=== PATIENT | female | born 1955 | race Caucasian/White ===

== ENCOUNTER 2017-02-24 11:20 | Inpatient (IN) ==
--- NOTE | 2017-02-23 21:15 | Discharge Summary ---
<Faith Smith - Last Filed: 02/23/17 21:13> Date of Encounter: 02/23/17 - Discharge Diagnosis (1) Arthritis of left hip Priority: Primary Status: Acute (2) Anxiety Status: Chronic (3) PAD (peripheral artery disease) Priority: Secondary Status: Chronic (4) CAD (coronary artery disease) Priority: Secondary Status: Chronic Qualifiers: Coronary Disease-Associated Artery/Lesion type: unspecified vessel or lesion type [place] vs. transplanted heart: unspecified whether [place] or transplanted heart Associated angina: angina presence unspecified Qualified Code(s): I25.10 - Atherosclerotic heart disease of [place] coronary artery without angina pectoris (5) HTN (hypertension) Priority: Secondary Status: Chronic Qualifiers: Hypertension type: essential hypertension Qualified Code(s): I10 - Essential (primary) hypertension (6) Bipolar disorder Priority: Secondary Status: Chronic Qualifiers: Active/Remission status: remission status unspecified Qualified Code(s): F31.9 - Bipolar disorder, unspecified (7) History of DVT (deep vein thrombosis) Priority: Secondary Status: Chronic (8) Chronic pain Priority: Secondary Status: Chronic Comments: Takes [place] 7.5/325mg - Holding this. - Discharge Medications Home Medications: Diclofenac Sodium [Voltaren] 1 appl TP QID #100 gm 04/19/16 [Rx] Enoxaparin [Lovenox] 30 mg SQ Q12HR #20 syr 02/23/17 [Rx] OxyCODONE Immed Rel [Roxicodone 5 MG] 5 - 10 mg PO Q6HR PRN #40 tablet 02/23/17 [Rx] Albuterol Sulfate [Albuterol Inhaler] 2 puff IH Q4HR PRN 02/24/17 [History] Aspirin [Lo-Dose Aspirin EC] 81 mg PO DAILY 02/24/17 [History] Buspirone HCl [Buspar] 10 mg PO BID 02/24/17 [History] Cilostazol [Pletal] 100 mg PO BID 02/24/17 [History] Clopidogrel [Plavix] 75 mg PO DAILY 02/24/17 [History] Gabapentin [Neurontin] 800 mg PO QID 02/24/17 [History] Glimepiride [Amaryl] 1 mg PO HS 02/24/17 [History] HYDROcodone/Acet 7.5/325 mg [[place] 7.5-325 mg] 1 tab PO BID PRN 02/24/17 [ History] Hydrochlorothiazide 25 mg PO DAILY 02/24/17 [History] Hydroxyzine HCl 25 mg PO Q8H PRN 02/24/17 [History] Lisinopril [Zestril] 20 mg PO HS 02/24/17 [History] Metformin HCl [Glucophage] 1,000 mg PO BID 02/24/17 [History] Metoprolol [Lopressor] 100 mg PO BID 02/24/17 [History] Montelukast [Singulair] 10 mg PO HS 02/24/17 [History] Nitroglycerin [Nitrostat] 0.4 mg SL Q5M PRN 02/24/17 [History] Pregabalin [Lyrica] 75 mg PO BID 02/24/17 [History] Ranitidine HCl [Zantac] 300 mg PO HS 02/24/17 [History] SUMAtriptan [Imitrex] 50 mg PO ONCE PRN 02/24/17 [History] Sertraline [Zoloft] 100 mg PO DAILY 02/24/17 [History] Tizanidine HCl 6 mg PO TID 02/24/17 [History] Allergies/Adverse Reactions: Allergies Amoxicillin [From Augmentin] Adverse Reaction (Verified 02/24/17 12:45) Diarrhea clavulanic acid [From Augmentin] Adverse Reaction (Verified 02/24/17 12:45) Diarrhea Primary care physician: Kyara Ziegler CNP - Patient Status Disposition: Transfer Inpatient Rehab Fac Condition: Good - Discharge Instructions Follow Up With: Kyara Ziegler CNP [Primary Care Provider] - - Hospital Course Hospital course: Ms. Mathis is a 61 year old female - Time Spent with Patient Total time spent providing and/or coordinating discharge services: <Paulino Spicer - Last Filed: 02/26/17 06:47> Date of Encounter: 02/26/17 Time of Encounter: 06:46 - Discharge Diagnosis (1) Arthritis of left hip Priority: Primary Status: Acute (2) Anxiety Priority: Secondary Status: Chronic (3) PAD (peripheral artery disease) Priority: Secondary Status: Chronic (4) CAD (coronary artery disease) Priority: Secondary Status: Chronic Qualifiers: Coronary Disease-Associated Artery/Lesion type: unspecified vessel or lesion type [place] vs. transplanted heart: unspecified whether [place] or transplanted heart Associated angina: angina presence unspecified Qualified Code(s): I25.10 - Atherosclerotic heart disease of [place] coronary artery without angina pectoris (5) HTN (hypertension) Priority: Secondary Status: Chronic Qualifiers: Hypertension type: essential hypertension Qualified Code(s): I10 - Essential (primary) hypertension (6) Bipolar disorder Priority: Secondary Status: Chronic Qualifiers: Active/Remission status: remission status unspecified Qualified Code(s): F31.9 - Bipolar disorder, unspecified (7) History of DVT (deep vein thrombosis) Priority: Secondary Status: Chronic (8) Chronic pain Priority: Secondary Status: Chronic Qualifiers: Chronic pain type: other chronic pain Qualified Code(s): G89.29 - Other chronic pain (9) Acute blood loss anemia Priority: Primary Status: Acute Primary care physician: Kyara Ziegler CNP - Patient Status Functional capacity at discharge: uses cane/walker Overall status at discharge: patient is progressing back to baseline - Hospital Course Hospital course: Ms. Mathis is a 61 year old female The patient had an uneventful postoperative course. They received antibiotics and physical therapy and were discharged in stable condition. There will follow -up in the office in 2 weeks. Patient with a hemoglobin of 6.9 2 units prior to discharge aspirin DVT prophylaxis - Time Spent with Patient Total time spent providing and/or coordinating discharge services:
[2017-02-24] MEDS ORDERED: Lidocaine -MPF 1% 2 ML VIAL ID ONE (11:58)
[2017-02-24] MEDS ORDERED: Albuterol 2.5 MG/3 ML NEBULIZER IH ONE (11:58)
[2017-02-24] MEDS ORDERED: CeFAZolin Pre 2,000 MG/100 ML 2,000 MG/100 ML BAG IVPB ONE (11:58)
[2017-02-24] MEDS ORDERED: Ringers Solution, Lactated 1,000 ML IVC SCH ×2 (12:00→15:59)
[2017-02-24] MEDS ORDERED: Famotidine 20 MG/2 ML VIAL IVP ONE (12:04)
--- NOTE | 2017-02-24 12:04 | History & Physical Report ---
Date of Encounter: 02/24/17 Time of Encounter: 12:03 24 Hour HP Update - Instructions Instructions: If the History and Physical is less than 30 days old and was completed prior to A.M. admission and or procedure and has NOT been updated on calendar day of procedure please complete this update prior to performing procedure. - Update Patient reports changes in Medical Condition: No Changes in examination, assessment, or condition: No Changes in Medication: No Preop tests/diagnostics Reviewed: Yes Surgery Remains Indicated: Yes Consent for Planned Operative Procedure(s) Verified: Yes - Pre-Operative Checklist Preoperative Checklist Indicated: No Prophylactic Antibiotic Ordered: Yes Is VTE Prophylaxis Indicated?: Yes
[2017-02-24] MEDS ORDERED: Gabapentin 300 MG CAPSULE PO ONE (12:05)
--- NOTE | 2017-02-24 12:14 | Anesthesia Evaluation PreOp ---
Date of Encounter: 02/24/17 Time of Encounter: 12:10 - Past History Planned Operation: Left Total Hip Arthroplasty Cardiac History: HTN Pulmonary History: Denies Any Significant HX, COPD JOURNALISM INTERN History: Other (Migraines) Other Medical History: Diabetes Type II, GERD, Other (Bipolar/Schizophrenia) Anesthesia History: No Prior Anesthetic Complications Alcohol Use: none Drug use: none Medications and Allergies Diclofenac Sodium [Voltaren] 1 appl TP QID #100 gm 04/19/16 [Rx] Meloxicam [Mobic] 7.5 mg PO DAILY #15 tablet 04/19/16 [Rx] PredniSONE 40 mg PO NOW 5 Days 04/19/16 [Rx] Enoxaparin [Lovenox] 30 mg SQ Q12HR #20 syr 02/23/17 [Rx] OxyCODONE Immed Rel [Roxicodone 5 MG] 5 - 10 mg PO Q6HR PRN #40 tablet 02/23/17 [Rx] Allergies Amoxicillin [From Augmentin] Adverse Reaction (Verified 04/19/16 10:39) Diarrhea clavulanic acid [From Augmentin] Adverse Reaction (Verified 04/19/16 10:39) Diarrhea - Meds/Allergy Pre-op Review Medications Reviewed: Yes Allergies Reviewed: Yes Beta Blockers on Current Med List: Yes (Took Metoprolol today 0800) Anesthesia Results - Labs Laboratory Tests 02/13/17 02/13/17 13:40 13:40 Hgb 11.4 L Hct 34.2 L Plt Count 485 H Sodium 134 L Potassium 4.3 BUN 25 H Creatinine 0.99 - Imaging EKG: report reviewed (SR) Anesthesia Exam O2 Sat Height 1.6 m Weight 69.4 kg Height: 5'3 Weight: 153 lbs NPO (# of Hours): MN Pain Scale: 0 - HEENT Pupil (Motor): Pupils equal, EOMI Mallampati: III Denture Type: Upper: Complete Oral Opening: Greater than 3 - JOURNALISM INTERN LOC: Oriented JOURNALISM INTERN Motor: Normal RUE, Normal LUE, Normal RLE, Normal LLE, Normal Face JOURNALISM INTERN Sensory: Normal: RUE, LUE, RLE, LLE, Face - Cardiac Rhythm: Regular Murmur: None JVD: No Carotid Bruit: No - Pulmonary Breath Sounds: bilateral Clear Respiratory Effort: Symmetrical Anesthesia Assess/Plan ASA Score: 3 (HTN COPD DM) Modified [place] Scale for Level of Consciousness: Cooperative, oriented, and tranquil Anesthetic Plan: General Monitoring Plan: Standard Monitors Recovery Plan: PACU (Discussed GA, agrees to proceed)
[2017-02-24] MEDS ORDERED: *HR* FentaNYL (PF) 100 MCG/2 ML VIAL ONE (12:17)
[2017-02-24] MEDS ORDERED: *HR* Midazolam HCl 2 MG/2 ML VIAL ONE (12:17)
[2017-02-24] MEDS ORDERED: *HR* Propofol 200 MG/20 ML VIAL IVP ONE (12:17)
[2017-02-24] MEDS ORDERED: Ondansetron 4 MG/2 ML VIAL IVP ONE (12:32)
[2017-02-24] MEDS ORDERED: *HR* Succinylcholine 200 MG/10 ML VIAL IVP ONE (12:52)
[2017-02-24] MEDS ORDERED: Lidocaine -MPF 2% 2 ML VIAL ONE (12:52)
[2017-02-24] MEDS ORDERED: Ondansetron 4 MG/2 ML VIAL ONE (12:52)
[2017-02-24] MEDS ORDERED: Dexamethasone 4 MG/ML VIAL ONE (12:52)
[2017-02-24] MEDS ORDERED: Lidocaine -MPF 4% 5 ML AMPUL ONE (12:52)
[2017-02-24] MEDS ORDERED: *HR* HYDROmorphone 2 MG/ML SYRINGE ONE (14:17)
--- NOTE | 2017-02-24 14:34 | Orthopedic Operative Note ---
Date of procedure: 02/24/17 Pre-op diagnosis: Left hip arthritis Post-op diagnosis: same Procedure: Procedure: Left Total Hip Replacment Estimated blood loss: 200 cc Hardware: Biomet DM Cup: 48 G7 fin cup Femoral size 10 echo full profile lateralized stem Head: +3 head with Allie Procedural Notes: Grade 4 arthritic changes femoral head acetabular socket. Operative procedure: The patient was brought to the operating room and placed on the operating room table. After general anesthesia was administered the patient was placed in the lateral decubitus position with the operative leg up. All pressure points were padded appropriately and the head was stabilized in the neutral position. The operative extremity was prepped and draped in the sterile surgical fashion patient received IV antibiotic prior to skin incision. A standard posterior approach is made to the operative hip, the incision was made through the skin and subcutaneous tissue hemostasis was obtained with Bovie cautery. Using careful sharp dissection the fascia was identified and incised exposing the external rotators. The external rotators were released off the greater trochanter and tagged with #2 FiberWire suture. The capsule was T'd open and the hip was brought into internal rotation. Patient noted to have grade 4 arthritic changes femoral head. The femoral neck cut was made at the appropriate level. An anterior capsulotomy was performed for the anterior retractor. Soft tissues removed from the acetabulum. Patient noted to have grade 4 arthritic changes acetabulum. Acetabulum was first reamed medially, and then reamed in 15 degrees of anteversion and 45 degrees off the horizontal. It was reamed up to the appropriate size 48 The appropriate-sized 48 acetabular cup was impacted in place in 15 degrees of anteversion and 45 degrees off the horizontal. This had good fit and fixation. The hip was brought back in to internal rotation and prepared with the boxcar weigher followed by the canal finder followed by broaching process in 20 degrees anteversion. It was broached up to the appropriate size 10 The femoral implant was impacted in place in 20 degrees of anteversion. Trial reduction found the hip to be stable with a +3 head and Allie. The trials were removed and the real implants were impacted in place. The hip was reduced, patient had apparent equal leg lengths. The hip had excellent stability with forward flexion to 90 degrees adduction of 30 degrees and internal rotation of 60 degrees. The hip had no shuck. The hips after 2 minutes with a Betadine saline solution. It was irrigated out with 2 L of pulse irrigation. The external rotators were reattached to drill holes in the greater trochanter. Fascia was closed with a running #2 PDS suture. The deep tissue was irrigated and closed deep with #1 PDS suture superficially with 0 PDS suture and skin was closed with skin lorri. The patient was placed in a sterile dressing and abduction pillow. The patient was extubated and transferred to the recovery room in stable condition. Anesthesia: GETA Surgeon: Paulino Spicer Condition: stable Disposition: PACU
[2017-02-24] MEDS ORDERED: Ketorolac 30 MG/ML VIAL ONE (14:40)
[2017-02-24] MEDS: *HR* HYDROmorphone (PF) 1 MG/ML SYRINGE IVP PRN ×6 (15:03→23:47)
[2017-02-24 15:25] LABS: Hematocrit 28.4 % (35.3-44.9); Hemoglobin 9.5 g/dL (11.5-15.4)
--- NOTE | 2017-02-24 15:25 | Anesthesia Evaluation Post Op ---
Date of Encounter: 02/24/17 Time of Encounter: 15:26 - Vital Signs Vital Signs: vss - Lungs Lungs: Clear Ascult./Percussion - Airway Airway: Non-obstructed - Cardiovascular Baseline Rhythm - Mental Status Mental Status: Asleep with brisk response to light stimulation - Pain Pain Scale used: [place] (Faces) (tolerable, no apparent distress) - Nausea Vomiting Nausea Vomiting: Not Present - Hydration Hydration: Ice chips - Discharge PostOp Status: Transfer Patient to floor
[2017-02-24] MEDS ORDERED: *HR* Meperidine 25 MG/ML SYRINGE ONE (15:30)
[2017-02-24] MEDS ORDERED: Temazepam 15 MG CAPSULE PO PRN (15:59)
[2017-02-24] MEDS ORDERED: MOM Conc 10 ML UD.LIQ PO PRN (15:59)
[2017-02-24] MEDS ORDERED: Ondansetron 4 MG/2 ML VIAL IVP PRN (15:59)
[2017-02-24] MEDS ORDERED: Sennosides 8.6 MG TABLET PO PRN (15:59)
[2017-02-24] MEDS ORDERED: *HR* OxyCODONE Immed Rel 5 MG TABLET PO PRN (15:59)
[2017-02-24] MEDS ORDERED: Acetaminophen 325 MG TABLET PO PRN (15:59)
[2017-02-24] MEDS ORDERED: Naloxone 0.4 MG/ML INJ IVP PRN (15:59)
[2017-02-24] MEDS: *HR* Enoxaparin 30 MG/0.3 ML SYRINGE SQ SCH (17:42)
[2017-02-24] MEDS: Ascorbic Acid 500 MG TABLET PO SCH (17:42)
[2017-02-24] MEDS ORDERED: *HR* Enoxaparin 30 MG/0.3 ML SYRINGE SQ SCH (18:00)
[2017-02-24] MEDS: ceFAZolin 2,000 MG in D5% in Water 100 ML IVPB SCH (20:48)
[2017-02-25] MEDS: *HR* OxyCODONE Immed Rel 5 MG TABLET PO PRN ×4 (01:03→17:53)
[2017-02-25] MEDS: ceFAZolin 2,000 MG in D5% in Water 100 ML IVPB SCH (04:25)
[2017-02-25] MEDS: *HR* HYDROmorphone (PF) 1 MG/ML SYRINGE IVP PRN ×3 (04:28→22:57)
[2017-02-25] MEDS: *HR* Enoxaparin 30 MG/0.3 ML SYRINGE SQ SCH ×2 (06:05→17:53)
[2017-02-25] MEDS ORDERED: SUMAtriptan succinate 50 MG TABLET PO PRN (06:09)
--- NOTE | 2017-02-25 06:19 | Orthopedics Progress Note ---
Date of Encounter: 02/25/17 Time of Encounter: 06:19 - Assessment and Plan (1) Arthritis of left hip Current Visit: Yes Status: Acute (2) Anxiety Current Visit: Yes Status: Chronic (3) PAD (peripheral artery disease) Current Visit: Yes Status: Chronic (4) CAD (coronary artery disease) Current Visit: Yes Status: Chronic Qualifiers: Coronary Disease-Associated Artery/Lesion type: unspecified vessel or lesion type [place] vs. transplanted heart: unspecified whether [place] or transplanted heart Associated angina: angina presence unspecified Qualified Code(s): I25.10 - Atherosclerotic heart disease of [place] coronary artery without angina pectoris (5) HTN (hypertension) Current Visit: Yes Status: Chronic Qualifiers: Hypertension type: essential hypertension Qualified Code(s): I10 - Essential (primary) hypertension (6) Bipolar disorder Current Visit: Yes Status: Chronic Qualifiers: Active/Remission status: remission status unspecified Qualified Code(s): F31.9 - Bipolar disorder, unspecified (7) History of DVT (deep vein thrombosis) Current Visit: Yes Status: Chronic (8) Chronic pain Current Visit: Yes Status: Chronic Qualifiers: Chronic pain type: other chronic pain Qualified Code(s): G89.29 - Other chronic pain Subjective Interval history: Patient was seen this morning doing well without complaints. Afebrile vital signs stable. Operative extremity: Neurovascularly intact Dressing bloody drainage dressing change Calves nontender Assessment and plan: Continue with postoperative care Hemoglobin 9.5 Objective Vital signs: Vital Signs Temp Pulse Resp BP Pulse Ox 02/25/17 04:36 99.1 F 94 17 115/69 94 02/24/17 23:44 98.3 F 93 19 127/72 99 02/24/17 20:04 97.8 F 81 17 146/72 96 02/24/17 19:00 97.6 F 76 16 113/70 95 02/24/17 17:55 97.9 F 82 17 120/71 97 02/24/17 17:00 97.8 F 83 16 109/58 96 02/24/17 15:50 97.6 F 84 15 116/66 95 02/24/17 15:34 97.7 F 88 14 116/64 95 02/24/17 15:24 97.7 F 87 15 113/64 96 02/24/17 15:14 86 18 124/77 95 02/24/17 15:04 92 14 156/72 97 02/24/17 14:54 97.1 F L 88 12 98/61 100 02/24/17 13:25 77 16 139/78 99 02/24/17 12:13 97.8 F 78 18 135/73 98 Intake and Output 02/24/17 02/24/17 02/25/17 15:59 23:59 07:59 Intake Total 100 / 100 Balance 100 / 100 Intake: IV Fluids 100 / 100 Ancef 2,000 MG In 100 / 100 Dextrose 5% 100 ML @ 200 mls/hr IVPB Q8H JOSE LUIS Rx#: [id number] Other: # Voids 1 Weight 69.4 kg Blood Glucose* 135 281 - Labs CBC & BMP: 02/24/17 15:08 Labs: Abnormal lab results Hgb 9.5 g/dL (11.5-15.4) L 02/24/17 15:08 Hct 28.4 % (35.3-44.9) L 02/24/17 15:08 POC Glucose 281 (58-89) H 02/24/17 20:11 - VTE Documentation of Mechanical Device: Venous foot pump, device Consult Discharge Plan - Plan Referrals: Kyara Ziegler, [employer] [Primary Care Provider] -
[2017-02-25 06:22] LABS: Hemoglobin 7.6 g/dL (11.5-15.4)
[2017-02-25 06:30] LABS: BUN/Creatinine Ratio 22 (6-26); Blood Urea Nitrogen 24 mg/dL (7-20); Calcium 8.6 mg/dL (8.6-10.8); Carbon Dioxide 22 mEq/L (19-29); Chloride 100 mEq/L (98-109); Glucose 209 mg/dL (70-99); Osmolality,Calculated 282 (280-300); Potassium 4.9 mEq/L (3.5-4.5); Sodium 131 mEq/L (136-145); eGFR For African Americans > 60 (> 60); eGFR For Non-African Americans 51 (> 60)
[2017-02-25] MEDS: hydroCHLOROthiazide 25 MG TABLET PO SCH (09:36)
[2017-02-25] MEDS: tiZANidine 4 MG TABLET PO SCH ×3 (09:36→20:24)
[2017-02-25] MEDS: Multivit/Ca/Min/Fe/FA 1 TAB TABLET PO SCH (09:36)
[2017-02-25] MEDS: Metoprolol 100 MG TABLET PO SCH ×2 (09:36→20:23)
[2017-02-25] MEDS: Gabapentin 400 MG CAPSULE PO SCH ×4 (09:37→20:23)
[2017-02-25] MEDS: Aspirin Enteric Coated 81 MG Tablet PO SCH (09:37)
[2017-02-25] MEDS: *HR* Metformin 500 MG TABLET PO SCH ×2 (09:37→17:52)
[2017-02-25] MEDS: Ascorbic Acid 500 MG TABLET PO SCH ×2 (09:37→17:53)
[2017-02-25] MEDS ORDERED: Dextrose Gel 15 GM PO PRN ×2 (12:19)
[2017-02-25] MEDS ORDERED: *HR* Dextrose 50 % in Water (Syg) 50 ML SYRINGE IVP PRN (12:19)
[2017-02-25] MEDS ORDERED: D5% in Water 1,000 ML IVC PRN (12:19)
[2017-02-25] MEDS: Insulin LISPRO 300 UNITS/3 ML VIAL SQ SCH ×3 (14:05→20:22)
[2017-02-25] MEDS: Famotidine 20 MG TABLET PO SCH (20:23)
[2017-02-25] MEDS: Lisinopril 20 MG TABLET PO SCH (20:23)
[2017-02-25] MEDS: Pregabalin 75 MG CAPSULE PO SCH (20:24)
[2017-02-25] MEDS: *HR* Glimepiride 2 MG TABLET PO SCH (20:24)
[2017-02-26 04:53] LABS: Hematocrit 20.7 % (35.3-44.9); Hemoglobin 6.9 g/dL (11.5-15.4)
[2017-02-26 05:19] LABS: BUN/Creatinine Ratio 20 (6-26); Blood Urea Nitrogen 20 mg/dL (7-20); Calcium 8.5 mg/dL (8.6-10.8); Carbon Dioxide 22 mEq/L (19-29); Chloride 99 mEq/L (98-109); Glucose 196 mg/dL (70-99); Osmolality,Calculated 278 (280-300); Potassium 4.1 mEq/L (3.5-4.5); Sodium 130 mEq/L (136-145); eGFR For African Americans > 60 (> 60); eGFR For Non-African Americans 55 (> 60)
[2017-02-26] MEDS: *HR* Enoxaparin 30 MG/0.3 ML SYRINGE SQ SCH ×2 (05:36→18:06)
[2017-02-26] MEDS: *HR* OxyCODONE Immed Rel 5 MG TABLET PO PRN ×3 (05:44→18:06)
--- NOTE | 2017-02-26 06:46 | Orthopedics Progress Note ---
Date of Encounter: 02/26/17 Time of Encounter: 06:45 - Assessment and Plan (1) Arthritis of left hip Current Visit: Yes Status: Acute (2) Anxiety Current Visit: Yes Status: Chronic (3) PAD (peripheral artery disease) Current Visit: Yes Status: Chronic (4) CAD (coronary artery disease) Current Visit: Yes Status: Chronic Qualifiers: Coronary Disease-Associated Artery/Lesion type: unspecified vessel or lesion type [place] vs. transplanted heart: unspecified whether [place] or transplanted heart Associated angina: angina presence unspecified Qualified Code(s): I25.10 - Atherosclerotic heart disease of [place] coronary artery without angina pectoris (5) HTN (hypertension) Current Visit: Yes Status: Chronic Qualifiers: Hypertension type: essential hypertension Qualified Code(s): I10 - Essential (primary) hypertension (6) Bipolar disorder Current Visit: Yes Status: Chronic Qualifiers: Active/Remission status: remission status unspecified Qualified Code(s): F31.9 - Bipolar disorder, unspecified (7) History of DVT (deep vein thrombosis) Current Visit: Yes Status: Chronic (8) Chronic pain Current Visit: Yes Status: Chronic Qualifiers: Chronic pain type: other chronic pain Qualified Code(s): G89.29 - Other chronic pain (9) Acute blood loss anemia Current Visit: Yes Status: Acute Subjective Interval history: Patient was seen this morning doing well without complaints. Afebrile vital signs stable. Operative extremity: Neurovascularly intact Dressing bloody drainage dressing change Calves nontender Assessment and plan: Continue with postoperative care Hemoglobin6.9 2 units check H&H then discharged Objective Vital signs: Vital Signs Temp Pulse Resp BP Pulse Ox 02/26/17 04:00 98.0 F 88 17 121/61 99 02/26/17 00:00 98.8 F 81 16 93/46 96 02/25/17 20:10 99.2 F 99 18 105/61 96 02/25/17 15:05 99.6 F 90 18 146/67 94 02/25/17 11:09 100.1 F H 93 18 122/65 95 Intake and Output 02/25/17 02/25/17 02/26/17 15:59 23:59 07:59 Intake Total 120 / 120 240 / 240 200 / 200 Output Total 1150 / 1150 275 / 275 Balance -1030 / -1030 240 / 240 -75 / -75 Intake: Oral 120 / 120 240 / 240 200 / 200 Output: Urine 1150 / 1150 275 / 275 Other: Meal Breakfast Dinner Percent of Meal Consumed 100% 80% # Voids 1 Blood Glucose* 365 224 - Labs CBC & BMP: 02/26/17 04:28 04 04:28 Labs: Abnormal lab results Hgb 6.9 g/dL (11.5-15.4) L 02/26/17 04:28 Hct 20.7 % (35.3-44.9) L 02/26/17 04:28 Sodium 130 mEq/L (136-145) L 02/26/17 04:28 Est GFR (Non-Af Amer) 55 (> 60) L 02/26/17 04:28 Glucose 196 mg/dL (70-99) H 02/26/17 04:28 POC Glucose 183 (58-89) H 02/25/17 16:07 Calculated Osmolality 278 (280-300) L 02/26/17 04:28 Calcium 8.5 mg/dL (8.6-10.8) L 02/26/17 04:28 - VTE Documentation of Mechanical Device: Venous foot pump, device Consult Discharge Plan - Plan Referrals: Kyara Ziegler, [facility] [Primary Care Provider] -
[2017-02-26] MEDS ORDERED: Furosemide 20 MG/2 ML VIAL IVP PRN (06:47)
[2017-02-26] MEDS ORDERED: 0.9 % Sodium Chloride 250 ML IVC SCH (07:00)
[2017-02-26] MEDS: Insulin LISPRO 300 UNITS/3 ML VIAL SQ SCH ×4 (08:56→20:50)
[2017-02-26] MEDS: tiZANidine 4 MG TABLET PO SCH ×3 (08:58→20:53)
[2017-02-26] MEDS: Gabapentin 400 MG CAPSULE PO SCH ×4 (08:58→20:52)
[2017-02-26] MEDS: Multivit/Ca/Min/Fe/FA 1 TAB TABLET PO SCH (08:58)
[2017-02-26] MEDS: Pregabalin 75 MG CAPSULE PO SCH ×2 (08:59→20:53)
[2017-02-26] MEDS: Metoprolol 100 MG TABLET PO SCH ×2 (08:59→20:53)
[2017-02-26] MEDS: hydroCHLOROthiazide 25 MG TABLET PO SCH (08:59)
[2017-02-26] MEDS: Ascorbic Acid 500 MG TABLET PO SCH ×2 (08:59→16:06)
[2017-02-26] MEDS: *HR* Metformin 500 MG TABLET PO SCH ×2 (08:59→16:05)
[2017-02-26] MEDS: Aspirin Enteric Coated 81 MG Tablet PO SCH (08:59)
[2017-02-26] MEDS: Nicotine 14 MG PATCH.TD24 TD SCH (18:06)
[2017-02-26] MEDS: Famotidine 20 MG TABLET PO SCH (20:52)
[2017-02-26] MEDS: Lisinopril 20 MG TABLET PO SCH (20:52)
[2017-02-26] MEDS: *HR* Glimepiride 2 MG TABLET PO SCH (20:52)
[2017-02-26 21:39] LABS: Hematocrit 24.9 % (35.3-44.9)
[2017-02-26 21:41] LABS: Hemoglobin 8.7 g/dL (11.5-15.4)
[2017-02-27] MEDS: *HR* OxyCODONE Immed Rel 5 MG TABLET PO PRN ×3 (00:05→11:30)
[2017-02-27] MEDS: *HR* Enoxaparin 30 MG/0.3 ML SYRINGE SQ SCH (06:15)
--- NOTE | 2017-02-27 08:17 | Orthopedics Progress Note ---
Date of Encounter: 02/27/17 Time of Encounter: 08:16 - Assessment and Plan (1) Arthritis of left hip Current Visit: Yes Status: Acute (2) Anxiety Current Visit: Yes Status: Chronic (3) PAD (peripheral artery disease) Current Visit: Yes Status: Chronic (4) CAD (coronary artery disease) Current Visit: Yes Status: Chronic Qualifiers: Coronary Disease-Associated Artery/Lesion type: unspecified vessel or lesion type [place] vs. transplanted heart: unspecified whether [place] or transplanted heart Associated angina: angina presence unspecified Qualified Code(s): I25.10 - Atherosclerotic heart disease of [place] coronary artery without angina pectoris (5) HTN (hypertension) Current Visit: Yes Status: Chronic Qualifiers: Hypertension type: essential hypertension Qualified Code(s): I10 - Essential (primary) hypertension (6) Bipolar disorder Current Visit: Yes Status: Chronic Qualifiers: Active/Remission status: remission status unspecified Qualified Code(s): F31.9 - Bipolar disorder, unspecified (7) History of DVT (deep vein thrombosis) Current Visit: Yes Status: Chronic (8) Chronic pain Current Visit: Yes Status: Chronic Qualifiers: Chronic pain type: other chronic pain Qualified Code(s): G89.29 - Other chronic pain (9) Acute blood loss anemia Current Visit: Yes Status: Acute Subjective Interval history: Patient was seen this morning doing well without complaints. Afebrile vital signs stable. Operative extremity: Neurovascularly intact Dressing bloody drainage dressing change Calves nontender Assessment and plan: Continue with postoperative care Discharge today Objective Vital signs: Vital Signs Temp Pulse Resp BP Pulse Ox 02/27/17 06:48 98.0 F 81 16 128/74 97 02/27/17 04:00 98.3 F 69 17 139/72 99 02/27/17 00:00 99.2 F 87 16 94/47 97 02/26/17 19:15 99 F 97 16 111/58 93 02/26/17 16:21 99.8 F H 95 17 113/57 99 02/26/17 16:15 99.8 F H 95 17 113/57 99 02/26/17 15:47 100.2 F H 92 18 111/50 96 02/26/17 13:10 97.6 F 88 18 91/46 94 02/26/17 12:45 98 F 92 16 99/52 97 02/26/17 10:29 98.3 F 86 18 100/51 95 Intake and Output 02/26/17 02/27/17 02/27/17 23:59 07:59 15:59 Intake Total 601 / 601 200 / 200 Output Total 300 / 300 250 / 250 Balance 301 / 301 -50 / -50 Intake: IV Fluids 101 / 101 0.9 % Sodium Chloride 250 1 / 1 ML @ 25 mls/hr IVC .Q10H JOSE LUIS Rx#:[id number] Oral 200 / 200 200 / 200 Blood Product 300 / 300 Rbcs Leuko Poor As-1 300 / 300 Unit [id number] Output: Urine 300 / 300 250 / 250 Other: # Voids 4 1 Blood Glucose* 150 173 - Labs CBC & BMP: 02/26/17 21:31 02/26/17 04:28 Labs: Abnormal lab results Hgb 8.7 g/dL (11.5-15.4) L D 02/26/17 21:31 Hct 24.9 % (35.3-44.9) L 02/26/17 21:31 Sodium 130 mEq/L (136-145) L 02/26/17 04:28 Est GFR (Non-Af Amer) 55 (> 60) L 02/26/17 04:28 Glucose 196 mg/dL (70-99) H 02/26/17 04:28 POC Glucose 144 (58-89) H 02/26/17 16:38 Calculated Osmolality 278 (280-300) L 02/26/17 04:28 Calcium 8.5 mg/dL (8.6-10.8) L 02/26/17 04:28 - VTE Documentation of Mechanical Device: Venous foot pump, device Consult Discharge Plan - Plan Referrals: Paulino Spicer MD [Partnered Physician] - 03/26/17 4:15 pm Faith Smith PAC [Physician Bail Attacher] - 03/06/17 10:15 am Kyara Ziegler CNP [Primary Care Provider] -
[2017-02-27] MEDS: Insulin LISPRO 300 UNITS/3 ML VIAL SQ SCH ×2 (09:09→12:09)
[2017-02-27] MEDS: Aspirin Enteric Coated 81 MG Tablet PO SCH (09:11)
[2017-02-27] MEDS: Ascorbic Acid 500 MG TABLET PO SCH (09:11)
[2017-02-27] MEDS: tiZANidine 4 MG TABLET PO SCH (09:11)
[2017-02-27] MEDS: hydroCHLOROthiazide 25 MG TABLET PO SCH (09:11)
[2017-02-27] MEDS: Gabapentin 400 MG CAPSULE PO SCH ×2 (09:11→12:08)
[2017-02-27] MEDS: Multivit/Ca/Min/Fe/FA 1 TAB TABLET PO SCH (09:12)
[2017-02-27] MEDS: Pregabalin 75 MG CAPSULE PO SCH (09:12)
[2017-02-27] MEDS: Metoprolol 100 MG TABLET PO SCH (09:13)
[2017-02-27] MEDS: Nicotine 14 MG PATCH.TD24 TD SCH (09:13)
[2017-02-27] MEDS: *HR* Metformin 500 MG TABLET PO SCH (09:13)
[2017-02-27 11:22] VITALS: BP 145/75
== END 2017-02-27 13:32 | DRG 301 ==
LOC: SAMDAY 11:20 → 3NENU 16:27
PROVIDERS: ADMIT Orthopaedic Surgery; ATTEND Orthopaedic Surgery

== ENCOUNTER 2018-12-10 16:41 | Inpatient (IN) ==
[2018-12-10] MEDS ORDERED: Acetaminophen 325 MG TABLET PO PRN (18:57)
[2018-12-10] MEDS ORDERED: Isovue-370 500 ML BOTTLE IVP ONE (19:48)
[2018-12-10] MEDS ORDERED: Naloxone 0.4 MG/ML INJ IVP PRN (21:15)
[2018-12-10] MEDS ORDERED: *HR* Promethazine 25 MG/ML VIAL IM ONE (21:42)
[2018-12-10] MEDS ORDERED: Ketorolac 15 MG/ML VIAL IM ONE (21:43)
--- NOTE | 2018-12-10 22:37 | Internal Med History&Physical ---
Date of Encounter: 12/10/18 Time of Encounter: 19:45 Internal Medicine - H&P: HPI Chief complaint: CVA Admitted From: Hospital to Hospital Transfer Plans for Post Hospital Care: Home History of present illness: Ms. Mathis is a 63 year old female Patient presented to [facility] emergency room with left-sided weakness. She states that she went to bed last night at around 9 to 11:30 PM, woke up at around 5 AM try to get out of bed to go to the bathroom but fell over. She had left-sided weakness and was not able to walk very well. She says her body did not want to cooperate. She also states that she felt funny around her mouth and nose, had dizziness and could not turn her head very well. She checked her blood sugar at home and it was 237/111. She then went to her vehicle, cleared it from the snow that had accumulated overnight, and was able to drive herself to the emergency room. She says that she has no family or friends and did not call an ambulance because she wanted to have her car available to her so that she could make it back home again. She has a history of stroke in the past about 5 or 6 years ago. She does not remember which side the stroke affected, but did have recovery from it. In the [facility] emergency room, CBC was within normal limits, BMP showed a creatinine of 1.8 and a GFR of 46.35. INR was 0.93, and urine tox screen was positive for cannabinoids. A chest CT was negative for acute pulmonary abnormalities and a CT head was normal and did not show acute bleed. She was given a dose of aspirin and [facility] requested transfer to [place] for further management. She was still exhibiting symptoms at that time, NIH score was 2, and she was continuing to show left-sided weakness and numbness around her mouth. I cannot tell from the documentation sent from [facility] if a stroke alert had been called. There was no discussion with neurology prior to her transfer. Upon my evaluation, patient states that she has had some recovery. She still has some weakness on the left side and tingling feeling around her mouth. She failed her bedside swallow test. She denies chest pain abdominal pain but has had some nausea and vomiting. She denies diarrhea and constipation and vision changes. She still has a headache as well. I performed a quick physical exam and ordered a CT angiogram of the head and neck. I then called our on-call neurologist Dr. Hughes and discussed the case with him. Because the patient was within a 24-hour window of her last known well I wanted to determine if the patient was an appropriate admission for this hospital. Dr. Hughes stated that he would have preferred this patient would not be admitted here, and patient should have been at least discussed with [facility] prior to her transfer to [facility]. He agreed with obtaining angiograms, as well as calling neurology at [facility] for their recommendations. I spoke with Dr. Pérez of neurology after obtaining the results of the CT angiogram which had indicated a left vertebral artery occlusion. She stated that there would be no intervention for her that they could offer, and she recommended patient be started on aspirin and felt that she would be appropriately managed here at [facility]. She suggested that if patient's symptoms worsened or if she had basilar artery involvement that she should be transferred at that time. I spoke with our neurologist Dr. Hughes once again, and he agreed to see the patient in consultation. MRI results also came back later which indicated an acute right lacunar infarction within the cerebral hemisphere. Past Med Surg Social Fam HX - Past Medical History Medical history: diabetes, hypertension Psychiatric history: no psych history - Past Surgical History Additional surgical history: appendix. c section. eye surgery. left fem -BK pop bypass @ [facility]. angiogram @ [facility] - Social History Smoking Status: Current every day smoker Smokeless Tobacco Status: No Alcohol use: none Drug use: none Internal Medicine - H&P: Meds Diclofenac Sodium [Voltaren] 1 appl TP QID #100 gm 04/19/16 [Rx] Enoxaparin [Lovenox] 30 mg SQ Q12HR #20 syr 02/23/17 [Rx] OxyCODONE Immed Rel [Roxicodone 5 MG] 5 - 10 mg PO Q6HR PRN #40 tablet 02/23/17 [Rx] Albuterol Sulfate [Albuterol Inhaler] 2 puff IH Q4HR PRN 02/24/17 [History] Aspirin [Lo-Dose Aspirin EC] 81 mg PO DAILY 02/24/17 [History] Buspirone HCl [Buspar] 10 mg PO BID 02/24/17 [History] Cilostazol [Pletal] 100 mg PO BID 02/24/17 [History] Clopidogrel [Plavix] 75 mg PO DAILY 02/24/17 [History] Gabapentin [Neurontin] 600 mg PO TID 02/24/17 [History] Glimepiride [Amaryl] 1 mg PO HS 02/24/17 [History] HYDROcodone/Acet 7.5/325 mg [Ethel 7.5-325 mg] 1 tab PO BID PRN 02/24/17 [History] Lisinopril [Zestril] 20 mg PO HS 02/24/17 [History] Metformin HCl [Glucophage] 1,000 mg PO BID 02/24/17 [History] Metoprolol [Lopressor] 100 mg PO BID 02/24/17 [History] Montelukast [Singulair] 10 mg PO HS 02/24/17 [History] Nitroglycerin [Nitrostat] 0.4 mg SL Q5M PRN 02/24/17 [History] Pregabalin [Lyrica] 75 mg PO BID 02/24/17 [History] Ranitidine HCl [Zantac] 300 mg PO HS 02/24/17 [History] SUMAtriptan succinate [Imitrex] 50 mg PO ONCE PRN 02/24/17 [History] Sertraline [Zoloft] 100 mg PO DAILY 02/24/17 [History] Tizanidine HCl 4 mg PO TID 02/24/17 [History] hydrOXYzine HCl [Hydroxyzine HCl] 25 mg PO Q8H PRN 02/24/17 [History] hydroCHLOROthiazide [Hydrochlorothiazide] 25 mg PO DAILY 02/24/17 [History] Dextran 70/Hypromellose/Pf [Artificial Tears Drops] 1 drop BOTH EYES BID 0 12/10/18 [History] Fluticasone Propionate [Flovent Diskus] 12/10/18 [History] rOPINIRole [Requip] 1 mg PO HS 12/10/18 [History] Allergy/AdvReac Type Severity Reaction Status Date / Time Amoxicillin [From Augmentin] AdvReac Diarrhea Verified 02/24/17 12:45 clavulanic acid AdvReac Diarrhea Verified 02/24/17 12:45 [From Augmentin] latex AdvReac See Verified 12/10/18 19:28 Comments All Systems PM: A 10-system review of systems was performed and is negative for pertinent findings except as documented above in the HPI. - Constitutional Vitals: Temp Pulse Resp BP Pulse Ox 97.6 F 92 14 192/105 98 12/10/18 18:33 12/10/18 18:33 12/10/18 18:33 12/10/18 18:33 12/10/18 18:33 General appearance: Present: cooperative, A&O X 3, pleasant, no acute distress, answers questions appropriately Exam: - - Head Head exam: Present: normal inspection - Eye Eye exam: Present: EOMI, normal appearance, PERRL - Neck Neck exam general surgery: Present: full ROM - Respiratory Respiratory exam: Present: CTAB. Absent: decreased breath sounds, rales, respiratory distress, rhonchi, wheezes - Cardiovascular Cardiovascular exam: Present: RRR. Absent: diastolic murmur, systolic murmur - GI/Abdominal GI/Abdominal exam: Present: normal bowel sounds, soft. Absent: tenderness - Extremities Exam Extremities exam: Present: warm, radial pulses palpable and symmetrical. Absent: pedal edema, tenderness - Neurological Exam Neurological exam: Present: CN II-XII intact, motor sensory deficit. Absent: no focal deficits, strengths equal and symetr throughout, pronater drift, facial droop, speech deficit - Expanded Neurological Exam Speech: Absent: garbled, slurred Neuro motor strength exam: LUE: 4, RUE: 5, LLE: 4, RLE: 5 - Skin Skin exam: Present: dry, normal color, warm Internal Med - H&P Results - Impressions ITS Impressions Brain MRI 12/10/18 18:57 IMPRESSION: Acute lacunar infarct within the right cerebellar hemisphere. The findings were sent to the Radiology Results Communication Center at 9:05 pm on 12/10/2018to be communicated to a licensed caregiver. D/ / Jeovany Musa MD / Jeovany Musa MD Interpreting Provider: Jeovany Musa MD Head CTA 12/10/18 19:48 IMPRESSION: No CT evidence of an acute infarct. Occluded left vertebral artery. Otherwise, no flow limiting stenosis or branch occlusion detected within the head or neck. Severe right mastoid effusion with partial opacification of the middle ear. The findings were sent to the Radiology Results Communication Center at 8:41 pm on 12/10/2018to be communicated to a licensed caregiver. RECOMMENDATIONS: MRI for further evaluation. D/ / Jeovany Musa MD / Jeovany Musa MD Interpreting Provider: Jeovany Musa MD Neck CTA 12/10/18 19:48 IMPRESSION: No CT evidence of an acute infarct. Occluded left vertebral artery. Otherwise, no flow limiting stenosis or branch occlusion detected within the head or neck. Severe right mastoid effusion with partial opacification of the middle ear. The findings were sent to the Radiology Results Communication Center at 8:41 pm on 12/10/2018to be communicated to a licensed caregiver. RECOMMENDATIONS: MRI for further evaluation. D/ / Jeovany Musa MD / Jeovany Musa MD Interpreting Provider: Jeovany Musa MD - Assessment and plan (1) CVA (cerebral vascular accident) Current Visit: Yes Status: Acute Assessment and plan: As seen on head and brain MRI. Patient has acute lacunar infarct in the right cerebellar hemisphere. Patient also has left vertebral artery occlusion. Presented with left-sided weakness and difficulty swallowing. Left-sided weakness is improving from initial presentation. Discussed case with on-call neurology as well as [facility] neurologist. Aspirin given at [facility] Neurology consult in the morning Echocardiogram in the morning Carotid Dopplers in the morning Continue neuro checks Physical therapy consult Occupational therapy consult Speech therapy consult Lipid panel in the morning We will start high-dose statin Qualifiers: CVA mechanism: unspecified Qualified Code(s): I63.9 - Cerebral infarction, unspecified (2) Left-sided weakness Current Visit: Yes Status: Acute Assessment and plan: Secondary to CVA Management as above (3) Dysphagia Current Visit: Yes Status: Acute Assessment and plan: Likely secondary to CVA. Nothing by mouth Speech and swallow consult Qualifiers: Dysphagia type: unspecified Qualified Code(s): R13.10 - Dysphagia, unspecified (4) Facial numbness Current Visit: Yes Status: Acute Assessment and plan: Likely secondary to CVA Management as above (5) Occlusion of left vertebral artery Current Visit: Yes Status: Acute Assessment and plan: As seen on head and neck CT angiogram Management as above (6) Right-sided lacunar infarction Current Visit: Yes Status: Acute Assessment and plan: As above (7) Diabetes Current Visit: Yes Status: Acute Assessment and plan: Patient not insulin dependent diabetic. Nothing by mouth Holding home meds Monitor sugars every 6 hours Low-dose insulin sliding scale as needed Qualifiers: Diabetes mellitus type: type 2 Diabetes mellitus halfway insulin use: without halfway use Diabetes mellitus complication status: without complication Qualified Code(s): E11.9 - Type 2 diabetes mellitus without complications (8) Headache Current Visit: Yes Status: Acute Assessment and plan: Will try migraine cocktail Phenergan, Toradol and Benadryl Continue to monitor Qualifiers: Headache type: unspecified Headache chronicity pattern: acute headache Intractability: not intractable Qualified Code(s): R51 - Headache (9) Nicotine dependence Current Visit: Yes Status: Acute Assessment and plan: Nicotine patch if needed Qualifiers: Nicotine product type: cigarettes Substance use status: uncomplicated Qualified Code(s): F17.210 - Nicotine dependence, cigarettes, uncomplicated (10) HTN (hypertension) Current Visit: No Status: Chronic Assessment and plan: Permissive hypertension allowed Continue to monitor Qualifiers: Hypertension type: essential hypertension Qualified Code(s): I10 - Essential (primary) hypertension (11) DVT prophylaxis Current Visit: Yes Status: Acute Assessment and plan: Subcutaneous heparin - Time Spent With Patient Total time spent is greater than 50% in coordination of care (as documented) at patient's floor/unit and/or counseling patient: Greater than 35 minutes
[2018-12-10] MEDS ORDERED: 0.9 % Sodium Chloride 1,000 ML IVC ONE (23:33)
[2018-12-11] MEDS ORDERED: Acetaminophen IV 1,000 MG/100 ML INFUS..BTL IVPB PRN (02:21)
[2018-12-11] MEDS: VOLTAREN GEL TP SCH ×5 (02:50→19:45)
[2018-12-11] MEDS: *HR* Heparin 5,000 UNIT/ML VIAL SQ SCH ×2 (05:27→17:39)
[2018-12-11 06:19] LABS: Hematocrit 30.1 % (35.3-44.9); Hemoglobin 10.3 g/dL (11.5-15.4); Mean Corpuscular HGB Conc 34.2 g/dL (31.6-35.5); Mean Corpuscular Volume 87.8 fL (83.0-100.0); Mean Platelet Volume 8.1 fL (9.4-12.4); Platelet Count 403 K/mcL (140-400); Red Blood Count 3.43 M/mcL (3.82-4.97); Red Cell Distribution Width 12.8 % (11.5-14.5)
[2018-12-11 06:20] LABS: Prothrombin Time 10.7 Seconds (9.4-12.1)
[2018-12-11 06:35] LABS: Troponin I < 0.03 ng/mL (< 0.04)
[2018-12-11 06:45] LABS: Alanine Aminotransferase 8 Units/L (7-52); Albumin 3.5 g/dL (3.5-5.7); Albumin/Globulin Ratio 1.4 (1.1-2.2); Alkaline Phosphatase 61 Units/L (34-104); Aspartate Amino Transferase 9 Units/L (13-39); BUN/Creatinine Ratio 20 (6-26); Bilirubin,Total 0.2 mg/dL (0.3-1.0); Blood Urea Nitrogen 21 mg/dL (8-23); Calcium 8.9 mg/dL (8.6-10.3); Carbon Dioxide 21 mEq/L (23-29); Chloride 103 mEq/L (98-107); Chol/HDL Ratio 6.6 (0-4.9); Cholesterol 185 mg/dL (< 200); Globulin 2.5 g/dL (2.4-3.5); Glucose 148 mg/dL (70-105); HDL Cholesterol 28 mg/dL (40-59); LDL Cholesterol,Calculated 94 mg/dL (0-99); LDL Cholesterol,Direct 103 mg/dL (75-193); Osmolality,Calculated 282 (280-300); Potassium 3.7 mEq/L (3.5-5.1); Sodium 133 mEq/L (136-145); Triglycerides 317 mg/dL (< 150); eGFR For Non-African Americans 53 (> 60)
[2018-12-11 07:00] LABS: Bilirubin,Urine Negative (Negative); Blood,Urine Negative (Negative); Clarity,Urine Clear (Clear); Color,Urine Yellow (Yellow); Glucose,Urine (UA) 250 mg/dL (Normal); Ketones,Urine Negative (Negative); Leukocyte Esterase,Urine Negative (Negative); Nitrite,Urine Negative (Negative); Protein,Urine >=300 mg/dL (Neg-Trace); Specific Gravity,Urine > 1.030 (1.010-1.025); Urobilinogen,Urine Normal (Normal)
[2018-12-11 07:03] LABS: Bacteria,Urine None Seen per hpf (None-Few); Hyaline Casts,Urine None Seen per lpf (None-Few); Squamous Epithelial Cell,Urine Many per lpf (None-Few)
--- NOTE | 2018-12-11 08:53 | Internal Med Progress Note ---
Hospitalist Progress Note - Encounter Date of Encounter: 12/11/18 Time of Encounter: 08:41 - Subjective Interval History: Patient seen and examined this morning events. No acute overnight events. Alert and oriented. Denies any difficulty speaking or swallowing. Still with right left arm and leg weakness. - Exam Vitals: Temp Pulse Resp BP Pulse Ox 98.4 F 72 18 167/84 95 12/11/18 07:31 12/11/18 07:31 12/11/18 07:31 12/11/18 07:31 12/11/18 07:31 Exam: General: In no acute distress. Conversant. Respiratory exam: CTAB. no accessory muscle use, rales, rhonchi, wheezes Cardiovascular exam: RRR, +S1, +S2. no murmur, gallop, rubs. GI/Abdominal exam: Non-tender, Non-distended, normal bowel sounds, soft, no peritoneal signs. Extremities exam: full ROM, no pedal edema, warm, pulses palpable in b/l lower extremities. no calf tenderness Neurological exam: CN II-XII intact, AO X3. no pronater drift, strength on LUE 4/5 LLE 4/5 Skin exam: No skin rash, ulcer, purpura or ecchymosis. - Summary of Assessment and Plan Summary of Assessment and Plan: CVA - did not have any intervention per [facility] neurology. - MRI with acute Rt cerebellar lacular infarct. Occluded left vertebral artery on CTA - c/u ECHO, carotid doppler, PT/OT - Neurology consulted. - c/w aspirin, stain. Was on plavix as well. Will start after confirmation if neurology recommends Dysphagia, facial numbness - Likely secondary to CVA. - Progressing diet per Speech and swallow evaluation Restless leg syndrome - start home medications after confirmation Diabetes - hold home OHA - accuchecks with sliding scale insulin Nicotine dependence - discussed cessation - Nicotine patch HTN - was on permissive hypertension - will start lisinopril and betablocker Anemia - chronic - stable - f/u outpatient Proteinuria - likely related to diabetes - c/w lisinopril - outpatient f/u DVT prophylaxis - Subcutaneous heparin - Time Spent with Patient Total time spent is greater than 50% in coordination of care (as documented) at patient's floor/unit and/or counseling patient: Internal Medicine: Result - Labs CBC & Chem 7: 12/11/18 05:58 12/11/18 05:58 Labs: Short CBC 12/11/18 Range/Units 05:58 WBC 8.3 (4.3-11.1) K/mcL Hgb 10.3 L (11.5-15.4) g/dL Hct 30.1 L (35.3-44.9) % Plt Count 403 H (140-400) K/mcL BMP 12/11/18 05:58 Sodium 133 L Potassium 3.7 Chloride 103 Carbon Dioxide 21 L BUN 21 Creatinine 1.05 Glucose 148 H Calcium 8.9 Cardiac Enzymes 12/11/18 Range/Units 05:58 Troponin I < 0.03 (< 0.04) ng/mL Liver Function 12/11/18 Range/Units 05:58 Total Bilirubin 0.2 L (0.3-1.0) mg/dL AST 9 L (13-39) Units/L ALT 8 (7-52) Units/L Alkaline Phosphatase 61 (34-104) Units/L Albumin 3.5 (3.5-5.7) g/dL Urine 12/11/18 Range/Units 06:50 Urine Color Yellow (Yellow) Urine Clarity Clear (Clear) Urine pH 6.0 (5.0-8.0) pH Units Ur Specific [place] > 1.030 H (1.010-1.025) Urine Protein >=300 H (Neg-Trace) mg/dL Urine Glucose (UA) 250 H (Normal) mg/dL - ABG Interpretation ABG results: PT/INR, D-dimer PT 10.7 Seconds (9.4-12.1) 12/11/18 05:58 - Impressions Impressions Brain MRI 12/10/18 18:57 IMPRESSION: Acute lacunar infarct within the right cerebellar hemisphere. The findings were sent to the Radiology Results Communication Center at 9:05 pm on 12/10/2018to be communicated to a licensed caregiver. D/ / Jeovany Musa MD / Jeovany Musa MD Interpreting Provider: Jeovany Musa MD Head CTA 12/10/18 19:48 IMPRESSION: No CT evidence of an acute infarct. Occluded left vertebral artery. Otherwise, no flow limiting stenosis or branch occlusion detected within the head or neck. Severe right mastoid effusion with partial opacification of the middle ear. The findings were sent to the Radiology Results Communication Center at 8:41 pm on 12/10/2018to be communicated to a licensed caregiver. RECOMMENDATIONS: MRI for further evaluation. D/ / Jeovany Musa MD / Jeovany Musa MD Interpreting Provider: Jeovany Musa MD Neck CTA 12/10/18 19:48 IMPRESSION: No CT evidence of an acute infarct. Occluded left vertebral artery. Otherwise, no flow limiting stenosis or branch occlusion detected within the head or neck. Severe right mastoid effusion with partial opacification of the middle ear. The findings were sent to the Radiology Results Communication Center at 8:41 pm on 12/10/2018to be communicated to a licensed caregiver. RECOMMENDATIONS: MRI for further evaluation. D/ / Jeovany Musa MD / Jeovany Musa MD Interpreting Provider: Jeovany Musa MD Consult Discharge Plan - Plan Referrals: Adalid Scott DO [Primary Care Provider] -
[2018-12-11] MEDS ORDERED: Acetaminophen 325 MG TABLET PO PRN ×2 (08:55→17:07)
[2018-12-11] MEDS: Aspirin Enteric Coated 81 MG Tablet PO SCH (08:58)
[2018-12-11 09:15] LABS: Estimated Average Glucose 295 mg/dl; Hemoglobin A1C 11.9 %
[2018-12-11] MEDS: Metoprolol 100 MG TABLET PO SCH ×2 (09:57→19:44)
[2018-12-11] MEDS: Nicotine 21 MG PATCH.TD24 TD PRN (09:57)
--- NOTE | 2018-12-11 10:53 | Neurology - Consult Note ---
Addendum entered and electronically signed by Brigitte Lawrence MD 12/11/18 15:41: Patient seen and examined in the presence of Dr. Angela Lindsay, Case discussed and imaging studies reviewed together and I agree with his history taking, physical examination, assessment and plan outlined below with additional information added after the patient was seen. In summary, this is a 63-year-old woman with past medical history significant for diabetes, hyperlipidemia who developed rather acute onset of left-sided heaviness with the rapid improvement. MRI of the brain demonstrated acute lacunar infarct involving the right cerebellar hemisphere. It is unclear why a right-sided cerebellar lacunar infarct would cause left-sided weakness more prominent in her lower extremity. Patient's CT angiogram of the brain demonstrated total occlusion of left vertebral artery and it is unclear whether this is an acute finding. If this were an acute finding then he may explain left-sided weakness that can be seen in patients with posterior circulation TIA or stroke that may have fluctuating neurological deficits. L4 sensitivity, angioplastic procedure not currently recommended for such finding and only conservative treatment are recommended. patient's CT angiogram of the neck showed no significant major vessel stenosis. At the time of this interview, patient also completed echocardiogram which showed normal left ventricular ejection fraction, no significant regional wall motion abnormality and no significant for Valvular disease. therefore agree aggressive risk factor modification including control of diabetes, statin therapy, increasing physical activity, the use of antiplatelet therapy in the form of aspirin 81 mg and Plavix 75 mg daily. Patient's neurological status significantly improved at this time. Prognosis of current stroke is fair and she likely would fully recover due to the fact that the size of the stroke is quite small. Patient can be discharged home from neurology perspective. Please continue medical and supportive care. Original Note: Date of Encounter: 12/11/18 Time of Encounter: 10:00 Assessment and Plan (1) CVA (cerebral vascular accident) Current Visit: Yes Status: Acute Patient has MRI findings confirming an acute infarct of the right cerebellar hemisphere along with CTA findings of left vertebral artery occlusion. Her symptoms of left lower extremity weakness along with gait imbalance may be a consequence of her acute right cerebellar CVA. Patient does take aspirin at home and this was continued while in the hospital. She was started on high-dose statin and her lipid panel does reveal hyperlipidemia. She is also known diabetic and her A1c was found to be 11.9. Recommend initiation of dual antiplatelet therapy with the addition of Plavix to her daily aspirin as patient has had a CVA on aspirin therapy Recommend continuing high-dose statin and monitoring hyperlipidemia as outpatient Recommend improved control of patient's diabetes as outpatient Discussed smoking cessation with the patient Carotid Dopplers and echocardiogram pending TELEVISION RECEIVER ANALYZER evaluated the patient and no interventions were recommended at this time PT/OT evaluation pending Qualifiers: CVA mechanism: unspecified Qualified Code(s): I63.9 - Cerebral infarction, unspecified History of Present Illness Chief complaint: Left leg weakness HPI: Ms. Mathis is a 63 year old female who is a current near 1 pack per day smoker with a history of hypertension, diabetes, and a prior CVA without any residual deficits who presented to [place] from [facility] emergency department for left-sided weakness. Patient states that she woke up at approximate 5 AM morning of 12/10/2018 to go to the bathroom and experienced a fall as her left leg felt weak. Last known-normal was approximately 9-11 PM the previous night. Denies hitting her head. Does say that she may have lost consciousness but she cannot recall accurately. She states that she was on the ground for several hours as her legs could not support her standing. She says at this time she also had numbness and tingling in her face around her mouth, as well as feeling hot and flushed. She states she also noted some left arm weakness and dizziness as well which remains unchanged. At [facility] emergency department a CT head was negative for bleed, patient was then transferred to [facility] for concerns for an acute CVA. At [facility] CT angiogram was performed which revealed a left vertebral artery occlusion. [facility] neurology was contacted and they did not recommend any intervention for the occlusion, patient was started on aspirin and admitted to the hospital. An MRI was performed which revealed an acute right sided lacunar infarct of the cerebellum. Today the patient states that her symptoms are unchanged, she still feels that she is "dizzy " and that that is worse when she turns her head. She does complain of a posterior headache. And continues to complain of left arm and left leg weakness and changes in her gait as she feels unsteady. Past Med Surg Social Fam HX - Past Medical History Medical history: diabetes, hypertension Psychiatric history: no psych history - Past Surgical History Additional surgical history: appendix. c section. eye surgery. left fem -BK pop bypass @ [facility]. angiogram @ [facility] - Social History Smoking Status: Current every day smoker Smokeless Tobacco Status: No Alcohol use: none Drug use: none Medications and Allergies Diclofenac Sodium [Voltaren] 1 appl TP QID #100 gm 04/19/16 [Rx] Enoxaparin [Lovenox] 30 mg SQ Q12HR #20 syr 02/23/17 [Rx] Albuterol Sulfate [Albuterol Inhaler] 2 puff IH Q4HR PRN 02/24/17 [History] Aspirin [Lo-Dose Aspirin EC] 81 mg PO DAILY 02/24/17 [History] Buspirone HCl [Buspar] 10 mg PO BID 02/24/17 [History] Cilostazol [Pletal] 100 mg PO BID 02/24/17 [History] Clopidogrel [Plavix] 75 mg PO DAILY 02/24/17 [History] Gabapentin [Neurontin] 600 mg PO TID 02/24/17 [History] Glimepiride [Amaryl] 1 mg PO HS 02/24/17 [History] Lisinopril [Zestril] 20 mg PO HS 02/24/17 [History] Metformin HCl [Glucophage] 1,000 mg PO BID 02/24/17 [History] Metoprolol [Lopressor] 100 mg PO BID 02/24/17 [History] Montelukast [Singulair] 10 mg PO HS 02/24/17 [History] Nitroglycerin [Nitrostat] 0.4 mg SL Q5M PRN 02/24/17 [History] Ranitidine HCl [Zantac] 300 mg PO HS 02/24/17 [History] SUMAtriptan succinate [Imitrex] 50 mg PO ONCE PRN 02/24/17 [History] Sertraline [Zoloft] 100 mg PO DAILY 02/24/17 [History] Tizanidine HCl 4 mg PO TID 02/24/17 [History] hydrOXYzine HCl [Hydroxyzine HCl] 25 mg PO Q8H PRN 02/24/17 [History] hydroCHLOROthiazide [Hydrochlorothiazide] 25 mg PO DAILY 02/24/17 [History] Dextran 70/Hypromellose/Pf [Artificial Tears Drops] 1 drop BOTH EYES BID 12/10/18 [History] Fluticasone Propionate [Flovent Diskus] 12/10/18 [History] rOPINIRole [Requip] 1 mg PO HS 12/10/18 [History] Allergy/AdvReac Type Severity Reaction Status Date / Time Amoxicillin [From Augmentin] AdvReac Diarrhea Verified 02/24/17 12:45 clavulanic acid AdvReac Diarrhea Verified 02/24/17 12:45 [From Augmentin] latex AdvReac See Verified 12/10/18 19:28 Comments All Systems: The remainder of the systems were reviewed and are negative - Constitutional Constitutional ROS IM: headache(s), weakness - Nose, Mouth, Throat Nose, mouth and throat: abnormal hearing ("Muffled") - Cardiovascular Cardiovascular ROS IM: no chest pain - Respiratory Respiratory IM: no dyspnea - Gastrointestinal Gastrointestinal: no abdominal pain - Genitourinary Genitourinary ROS: no dysuria - Musculoskeletal Musculoskeletal ROS IM: abnormal gait, muscle weakness - Integumentary Integumentary IM: no rash - Neurological Neurological ROS: abnormal gait, abnormal hearing, dizziness, focal weakness, headache(s), paresthesias, restless legs - Psychiatric Psychiatric general PM: panic attacks - Endocrine Endocrine IM: palpitations - Hematologic/Lymphatic Hematologic/Lymphatic pediatric: no easy bleeding Physical Examination - Vital Signs Vital Signs: Initial Vital Signs Temp Pulse Resp BP Pulse Ox 97.6 F 92 14 192/105 98 12/10/18 18:33 12/10/18 18:33 12/10/18 18:33 12/10/18 18:33 12/10/18 18:33 - Exam Exam: Constitutional: Resting out of bed in chair, mildly anxious, no acute distress HEENT: Head is atraumatic normocephalic. Extra ocular muscles are intact, pupils react to light bilaterally, external ears and nares patent. No oropharyngeal lesions. Tongue protrudes midline. Neck: No JVD, trachea midline Chest: Normal inspection, symmetrical chest wall rise, no tenderness to palpation Neurological: -Cranial nerves: Extraocular muscles are intact. Vision intact. Pupils react to light bilaterally. No facial asymmetry. No facial sensory changes. No dysarthria. Hearing intact. Tongue protrudes midline, uvula midline. Normal SCM and trapezius muscle strength. -Upper extremities: Strength is 5 out of 5 and equal in both upper extremities bilaterally on laborer steel handling strength, biceps, and triceps testing. No pronator drift. Finger-nose normal. Sensation intact. Biceps reflexes are 1+ bilaterally. -Lower extremities: Iliopsoas and quadriceps muscle strength testing is 4 out of 5 on the left. Right lower extremity muscle strength is 5 out of 5 throughout. Plantar flexion and dorsiflexion muscle strength testing is 5 out of 5 bilaterally. Patellar reflexes are 1+ bilaterally. Negative Babinski. Negative Romberg. Patient is able to ambulate without assistance. No loss of balance, can maintain gait in a straight line. On gait testing patient does however report that she feels unsteady and that her left leg is "heavy". Results - Laboratory Findings CBC and BMP: 12/11/18 05:58 12/11/18 05:58 Abnormal lab findings: Abnormal lab results RBC 3.43 M/mcL (3.82-4.97) L 12/11/18 05:58 Hgb 10.3 g/dL (11.5-15.4) L 12/11/18 05:58 Hct 30.1 % (35.3-44.9) L 12/11/18 05:58 Plt Count 403 K/mcL (140-400) H 12/11/18 05:58 MPV 8.1 fL (9.4-12.4) L 12/11/18 05:58 Sodium 133 mEq/L (136-145) L 12/11/18 05:58 Carbon Dioxide 21 mEq/L (23-29) L 12/11/18 05:58 Est GFR (Non-Af Amer) 53 (> 60) L 12/11/18 05:58 Glucose 148 mg/dL (70-105) H 12/11/18 05:58 POC Glucose 145 mg/dL (70-99) H 12/11/18 07:36 Hemoglobin A1c 11.9 % (-5.6) H 12/11/18 05:58 Total Bilirubin 0.2 mg/dL (0.3-1.0) L 12/11/18 05:58 AST 9 Units/L (13-39) L 12/11/18 05:58 Serum Total Protein 6.0 g/dL (6.4-8.9) L 12/11/18 05:58 Triglycerides 317 mg/dL (< 150) H 12/11/18 05:58 VLDL Cholesterol, Calc 63 mg/dL (< 31) H 12/11/18 05:58 HDL Cholesterol 28 mg/dL (40-59) L 12/11/18 05:58 Cholesterol/HDL Ratio 6.6 (0-4.9) H 12/11/18 05:58 Ur Specific [place] > 1.030 (1.010-1.025) H 12/11/18 06:50 Urine Protein >=300 mg/dL (Neg-Trace) H 12/11/18 06:50 Urine Glucose (UA) 250 mg/dL (Normal) H 12/11/18 06:50 Urine Microscopic RBC 5-15 per hpf (0-3) H 12/11/18 06:50 Urine Microscopic WBC 3-5 per hpf (0-3) H 12/11/18 06:50 Ur Squamous Epith Cells Many per lpf (None-Few) H 12/11/18 06:50 Consult Discharge Plan - Plan Referrals: Adalid Scott DO [Primary Care Provider] -
[2018-12-11] MEDS: hydrOXYzine pamoate 25 MG CAPSULE PO PRN (11:36)
[2018-12-11] MEDS: Insulin LISPRO 300 UNITS/3 ML VIAL SQ SCH ×2 (11:40→17:23)
[2018-12-11] MEDS ORDERED: Acetaminophen 325 MG TABLET PO ONE (12:23)
[2018-12-11] MEDS ORDERED: Ketorolac 15 MG/ML VIAL IVP ONE (12:47)
[2018-12-11] MEDS ORDERED: *HR* Labetalol 20 MG/4 ML SYRINGE IVP ONE (12:57)
[2018-12-11] MEDS: *HR* Labetalol 20 MG/4 ML SYRINGE IVP ONE ×2 (13:01→15:42)
[2018-12-11] MEDS: hydroCHLOROthiazide 25 MG TABLET PO SCH ×2 (15:56→19:44)
[2018-12-11] MEDS: *HR* OxyCODONE/APAP 5/325 TABLET PO PRN (17:23)
[2018-12-11] MEDS: Lisinopril 20 MG TABLET PO SCH (17:39)
[2018-12-11] MEDS: rOPINIRole 1 MG TABLET PO SCH (19:44)
[2018-12-11] MEDS: Ondansetron 4 MG/2 ML VIAL IVP PRN (19:46)
[2018-12-11] MEDS ORDERED: Lisinopril 20 MG TABLET PO SCH (21:00)
[2018-12-12 04:10] LABS: Hematocrit 33.1 % (35.3-44.9); Hemoglobin 11.5 g/dL (11.5-15.4)
[2018-12-12 04:37] LABS: % Iron Saturation 44 % (15-50); BUN/Creatinine Ratio 23 (6-26); Blood Urea Nitrogen 17 mg/dL (8-23); Calcium 9.4 mg/dL (8.6-10.3); Carbon Dioxide 21 mEq/L (23-29); Chloride 101 mEq/L (98-107); Glucose 174 mg/dL (70-105); Iron 122 mcg/dL (50-170); Osmolality,Calculated 280 (280-300); Potassium 4.1 mEq/L (3.5-5.1); Sodium 132 mEq/L (136-145); Transferrin 199 mg/dL (203-362); eGFR For Non-African Americans > 60 (> 60)
[2018-12-12 04:49] LABS: Ferritin 33 ng/mL (10-120)
[2018-12-12] MEDS: *HR* Heparin 5,000 UNIT/ML VIAL SQ SCH ×2 (05:50→17:29)
[2018-12-12] MEDS: VOLTAREN GEL TP SCH ×3 (08:58→17:38)
[2018-12-12] MEDS ORDERED: NIFEdipine XL (24 HR) 30 MG TAB.ER.24 PO SCH (09:00)
[2018-12-12] MEDS: Insulin LISPRO 300 UNITS/3 ML VIAL SQ SCH ×3 (09:26→17:29)
[2018-12-12] MEDS: Gabapentin 300 MG CAPSULE PO SCH ×3 (09:27→21:28)
[2018-12-12] MEDS: hydroCHLOROthiazide 25 MG TABLET PO SCH ×2 (09:27→13:08)
[2018-12-12] MEDS: Aspirin Enteric Coated 81 MG Tablet PO SCH (09:27)
[2018-12-12] MEDS: *HR* OxyCODONE/APAP 5/325 TABLET PO PRN ×2 (09:28→21:39)
[2018-12-12] MEDS: hydrOXYzine pamoate 25 MG CAPSULE PO PRN (09:29)
[2018-12-12] MEDS: Metoprolol 100 MG TABLET PO SCH (09:29)
[2018-12-12] MEDS: Nicotine 21 MG PATCH.TD24 TD PRN (09:50)
--- NOTE | 2018-12-12 10:04 | Internal Med Progress Note ---
Hospitalist Progress Note - Encounter Date of Encounter: 12/12/18 Time of Encounter: 10:00 - Subjective Interval History: Patient seen and examined this morning events. No acute overnight events. Headache on/off. Still with right left arm and leg weakness. No new complains. BP elevated. - Exam Vitals: Temp Pulse Resp BP Pulse Ox 98.4 F 75 14 174/96 95 12/12/18 06:47 12/12/18 06:47 12/12/18 06:47 12/12/18 06:47 12/12/18 06:47 Exam: General: In no acute distress. Conversant. Respiratory exam: CTAB. no accessory muscle use, rales, rhonchi, wheezes Cardiovascular exam: RRR, +S1, +S2. no murmur, gallop, rubs. GI/Abdominal exam: Non-tender, Non-distended, normal bowel sounds, soft, no peritoneal signs. Extremities exam: full ROM, no pedal edema, warm, pulses palpable in b/l lower extremities. no calf tenderness Neurological exam: CN II-XII intact, AO X3. no pronater drift, strength on LUE 4/5 LLE 4/5 Skin exam: No skin rash, ulcer, purpura or ecchymosis. - Summary of Assessment and Plan Summary of Assessment and Plan: CVA - did not have any intervention per [facility] neurology. - MRI with small acute Rt cerebellar lacular infarct. Occluded left vertebral artery on CTA - ECHO unremarkable except mild Diastolic dysfunction., carotid doppler Rt normal, lt 40-59% stenosis, - Neurology consulted. Ok to DC. - c/w aspirin, plavix , stain. - OT recommended SNF. Initially refuse SNF placement, but now want to go to SNF. Patient lives alone. Will need to be here till friday for SNF placement. Also needs better BP management. Restless leg syndrome - c/w home medication Diabetes - hold home OHA - accuchecks with sliding scale insulin Nicotine dependence - discussed cessation - Nicotine patch HTN - Started on home medication - Still significantly elevated. Possible related to headache. Start Nifepidine. Not has used sumatriptan for years as have cardiac side effects. Anemia - chronic - stable - f/u outpatient Proteinuria - likely related to diabetes - c/w lisinopril - outpatient f/u DVT prophylaxis - Subcutaneous heparin - Time Spent with Patient Total time spent is greater than 50% in coordination of care (as documented) at patient's floor/unit and/or counseling patient: Internal Medicine: Result - Labs CBC & Chem 7: 12/12/18 03:29 12/12/18 03:29 Labs: Short CBC 12/12/18 Range/Units 03:29 Hgb 11.5 (11.5-15.4) g/dL Hct 33.1 L (35.3-44.9) % BMP 12/12/18 03:29 Sodium 132 L Potassium 4.1 Chloride 101 Carbon Dioxide 21 L BUN 17 Creatinine 0.74 Glucose 174 H Calcium 9.4 - ABG Interpretation ABG results: PT/INR, D-dimer PT 10.7 Seconds (9.4-12.1) 12/11/18 05:58 - Impressions Impressions Echocardiogram 12/11/18 13:00 Impressions: LVEF 65-70%. Normal LV chamber size, wall thickness and systolic function. Mild left ventricular diastolic dysfunction. Normal right ventricular structure and function. No significant valvular dysfunction. No evidence of pulmonary hypertension. No evidence of PFO with agitated saline contrast. Left Ventricular Wall Motion: Rest Echo Findings All wall segments showed normal motion. Findings: Study Quality * Technically adequate exam. ECG Findings * Normal sinus rhythm. Left Ventricle * LVEF 65-70%. * Normal LV chamber size, wall thickness and systolic function. * Mild left ventricular diastolic dysfunction. Right Ventricle * Normal right ventricular structure and function. Left Atrium * Normal left atrial size. Right Atrium * Normal right atrial size. Aortic Valve * Aortic valve not well visualized. * No aortic stenosis. * No aortic regurgitation. Mitral Valve * Normal mitral valve structure. * No mitral stenosis. * Trace mitral regurgitation. Tricuspid Valve * Normal tricuspid valve structure. * No tricuspid stenosis. * Trace tricuspid regurgitation. * Unable to estimate RVSP due to lack of TR jet. * No evidence of pulmonary hypertension. * Estimated RA pressure is 3 mmHg. Pulmonic Valve * Pulmonic valve is not well visualized. * No pulmonic stenosis. * No pulmonic regurgitation. Aorta * Normally sized aortic root. Pericardium * The pericardium appears normal. IVC * Normal IVC dimensions and inspiratory collapse. Interatrial Septum * No evidence of PFO with agitated saline contrast. Consult Discharge Plan - Plan Referrals: Adalid Scott DO [Primary Care Provider] -
[2018-12-12] MEDS ORDERED: *HR* Labetalol 20 MG/4 ML SYRINGE IVP PRN (10:19)
[2018-12-12] MEDS ORDERED: 0.9 % Sodium Chloride 1,000 ML ONE (12:44)
[2018-12-12] MEDS ORDERED: 0.9 % Sodium Chloride 500 ML IV ONE (12:49)
--- NOTE | 2018-12-12 14:33 | Event Note ---
Date of Encounter: 12/12/18 Time of Encounter: 13:00 nurse noticed that patient was clammy when she complained of feeling dizzy. Her BP was noticed to be in 60s/40s. At bedside patient appeared pale, very weak but was following commands. Patient was transferred to bed and was started on IV normal saline 500 cc bolus. EKG was abstain which was non-ischemic. Troponin was drawn. Patient recovered significantly within 15 minutes. Did not have any focal deficit and was responding to commands the whole time. We will discontinue Procardia as this was the only new medications she got. We will hold metoprolol lisinopril and hydrochlorothiazide for now.
[2018-12-12] MEDS: tiZANidine 4 MG TABLET PO SCH ×3 (15:35→21:29)
[2018-12-12] MEDS ORDERED: 0.9 % Sodium Chloride 500 ML IVC ONE (15:49)
[2018-12-12] MEDS: rOPINIRole 1 MG TABLET PO SCH (21:28)
[2018-12-13] MEDS: VOLTAREN GEL TP SCH ×5 (00:43→20:29)
[2018-12-13] MEDS: *HR* Heparin 5,000 UNIT/ML VIAL SQ SCH ×2 (05:49→18:01)
[2018-12-13] MEDS: Acetaminophen 325 MG TABLET PO PRN (05:52)
[2018-12-13] MEDS: Gabapentin 300 MG CAPSULE PO SCH ×3 (08:49→20:23)
[2018-12-13] MEDS: tiZANidine 4 MG TABLET PO SCH ×3 (08:50→18:01)
[2018-12-13] MEDS: Metoprolol 100 MG TABLET PO SCH ×2 (08:50→20:23)
[2018-12-13] MEDS: hydroCHLOROthiazide 25 MG TABLET PO SCH (08:50)
[2018-12-13] MEDS: Aspirin Enteric Coated 81 MG Tablet PO SCH (08:50)
[2018-12-13] MEDS: *HR* OxyCODONE/APAP 5/325 TABLET PO PRN ×2 (08:50→20:26)
[2018-12-13] MEDS: Insulin LISPRO 300 UNITS/3 ML VIAL SQ SCH ×3 (08:52→17:57)
[2018-12-13] MEDS: Fluticasone Propionate Nasal 50 MCG/SPRAY BOTTLE NS SCH (13:10)
--- NOTE | 2018-12-13 13:11 | Neurology Progress Note ---
Date of Encounter: 12/13/18 Time of Encounter: 13:09 Assessment and Plan (1) CVA (cerebral vascular accident) Current Visit: Yes Status: Acute Small lacunar infarct at the right cerebellar hemisphere likely related to small vessel disease. Currently on Aspirin/plavix for secondary stroke prevention. On statin therapy. Would allow permissive hypertension during acute phase of stroke (7-10 days) and after that if BP still elevated then aggressive treatment can be considered. Stroke work up completed at this time. Please continue medical and supportive care. Will sign off at this time please call if any questions. Qualifiers: CVA mechanism: unspecified Qualified Code(s): I63.9 - Cerebral infarction, unspecified Subjective Principal diagnosis: CVA Interval history: Patient seen and examined. She is feeling better today. She developed an episode of dizziness and weakness related to low BP yesterday. BP medication has been adjusted and her BP now running 120's and 70's. She still has slight left arm numbness but overall speaking neurological status has been stable. She is on Aspirin 81mg daily and plavix 75mg daily Objective - Constitutional Vitals: Temp Pulse Resp BP Pulse Ox 97.9 F 62 14 137/74 98 12/13/18 11:37 12/13/18 11:37 12/13/18 11:37 12/13/18 11:37 12/13/18 11:37 - Neurological Exam Sensorimotor examination: Present: intact Motor Examination: Present: other (No focal deficits noted. ) Motor examination - right side: 5/5: deltoids, biceps, triceps, wrist flexion, wrist extension, usability specialist, hip flexors, tibialis Anterior, quadriceps, toe extension (EHL), plantarflexion Motor examination - left side: 5/5: deltoids, biceps, triceps, wrist flexion, wrist extension, hip flexors, usability specialist, quadriceps, tibialis Anterior, toe extension (EHL), plantarflexion Sensation intact: Present: intact Posture: Present: other (None) Reflex and gait examination: intact Reflexes: Biceps: 2+, Triceps: 2+, Brachioradialis: 2+, Patella: 2+, Achilles: 2+ Mental Status Examination: Present: awake, alert, oriented to person, oriented to place, oriented to time, follows commands appropriately, answers questions appropriately, no agnosia, no aphasia, no aproxia Cranial nerve examination: Present: PERRL, EOMI, visual king intact, corneal reflexes brisk symmetrically, sensory to face intact, mastication intact, no facial asymmetry is present, no dysarthria, hearing is intact symmetrically, soft palate elevates bilaterally upon phonation, gag reflex intact, flexes SCM and trapezius muscles symmetrically with full power, tongue protrudes midline Results - Laboratory Findings CBC and BMP: 12/12/18 03:29 12/12/18 03:29 Abnormal lab findings: Abnormal lab results RBC 3.43 M/mcL (3.82-4.97) L 12/11/18 05:58 Hct 33.1 % (35.3-44.9) L 12/12/18 03:29 Plt Count 403 K/mcL (140-400) H 12/11/18 05:58 MPV 8.1 fL (9.4-12.4) L 12/11/18 05:58 Sodium 132 mEq/L (136-145) L 12/12/18 03:29 Carbon Dioxide 21 mEq/L (23-29) L 12/12/18 03:29 Glucose 174 mg/dL (70-105) H 12/12/18 03:29 POC Glucose 151 mg/dL (70-99) H 12/12/18 21:24 Hemoglobin A1c 11.9 % (-5.6) H 12/11/18 05:58 Transferrin 199 mg/dL (203-362) L 12/12/18 03:29 Total Bilirubin 0.2 mg/dL (0.3-1.0) L 12/11/18 05:58 AST 9 Units/L (13-39) L 12/11/18 05:58 Serum Total Protein 6.0 g/dL (6.4-8.9) L 12/11/18 05:58 Triglycerides 317 mg/dL (< 150) H 12/11/18 05:58 VLDL Cholesterol, Calc 63 mg/dL (< 31) H 12/11/18 05:58 HDL Cholesterol 28 mg/dL (40-59) L 12/11/18 05:58 Cholesterol/HDL Ratio 6.6 (0-4.9) H 12/11/18 05:58 Ur Specific [place] > 1.030 (1.010-1.025) H 12/11/18 06:50 Urine Protein >=300 mg/dL (Neg-Trace) H 12/11/18 06:50 Urine Glucose (UA) 250 mg/dL (Normal) H 12/11/18 06:50 Urine Microscopic RBC 5-15 per hpf (0-3) H 12/11/18 06:50 Urine Microscopic WBC 3-5 per hpf (0-3) H 12/11/18 06:50 Ur Squamous Epith Cells Many per lpf (None-Few) H 12/11/18 06:50 Consult Discharge Plan - Plan Referrals: Adalid Scott DO [Primary Care Provider] -
[2018-12-13] MEDS: amLODIPine 5 MG TABLET PO SCH (15:53)
[2018-12-13] MEDS: Lisinopril 20 MG TABLET PO SCH (20:23)
[2018-12-13] MEDS: rOPINIRole 1 MG TABLET PO SCH (20:23)
[2018-12-13] MEDS: Cholestyramine 4 GM POWD.PACK PO SCH (20:24)
--- NOTE | 2018-12-13 20:59 | Internal Med Progress Note ---
Hospitalist Progress Note - Encounter Date of Encounter: 12/13/18 Time of Encounter: 15:00 - Subjective Interval History: SUBJECTIVE: The patient feels better. She continues to have mild weakness in left lower extremity; he is not able to walk by herself (needs assistance). She continues to have numbness in left upper extremity and around her mouth. She is on dysphagia dietchopped meats. Her speech seems to be fine. Denies headache. Denies dizziness/lightheadedness. Denies problems related to vision and hearing. Denies chest pain and difficulty breathing. Denies coughing and wheezing. OBJECTIVE: Skin: Free of rash and discoloration. ENMT: Oral/pharyngeal mucosa is normal in appearance. Eyes: Sclera is white. There is no discharge from eyes. Respiratory: Normal breath sounds; no crackles or wheezes. CV: Heart is regular; no gallop or murmur. GI: Abdomen is soft and not tender. There is no palpable mass or visceromegaly. Neuro: There is mild weakness in left lower extremity. Testing for ataxia is negative bilaterally. ADDITIONAL DATA: I gamester, from yesterday revealed normal electrolytes and creatinine of 0.74. Her fingersticks for glucose from today are 179, 202 and 210. 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 Right-sided lacunar infarction in right cerebellum seems to be an accidental finding. See notes from neurology. The patient takes aspirin, Plavix and Lipitor. She gets physical therapy; to be continued in ECF. Dysphagia. See notes from speech therapy. To continue modified diet. Type 2 diabetes mellitus. Currently on when necessary Humalog. She will be taking her metformin and glimepiride in outpatient settings. Hypertension. I can see her increased blood pressure. I will add amlodipine to Lopressor and Zestril. DISPOSITION: She will go to ECF, as soon as a bed is available. - Exam Vitals: Temp Pulse Resp BP Pulse Ox 98.2 F 75 16 143/72 98 12/13/18 18:46 12/13/18 18:46 12/13/18 18:46 12/13/18 18:46 12/13/18 18:46 Exam: xx - Assessment and Plan (1) CVA (cerebral vascular accident) Current Visit: Yes Status: Acute (2) Occlusion of left vertebral artery Current Visit: Yes Status: Acute (3) Right-sided lacunar infarction Current Visit: Yes Status: Acute (4) Dysphagia Current Visit: Yes Status: Acute (5) Type 2 diabetes mellitus Current Visit: Yes Status: Acute (6) HTN (hypertension) Current Visit: No Status: Chronic - Time Spent with Patient Total time spent is greater than 50% in coordination of care (as documented) at patient's floor/unit and/or counseling patient: 25 - 35 minutes Plan of Care Discussed with: patient Internal Medicine: Result - Labs CBC & Chem 7: 12/12/18 03:29 12/12/18 03:29 - ABG Interpretation ABG results: PT/INR, D-dimer PT 10.7 Seconds (9.4-12.1) 12/11/18 05:58 Consult Discharge Plan - Plan Referrals: Adalid Scott DO [Primary Care Provider] - (1) CVA (cerebral vascular accident) Qualifiers: CVA mechanism: unspecified Qualified Code(s): I63.9 - Cerebral infarction, unspecified (4) Dysphagia Qualifiers: Dysphagia type: unspecified Qualified Code(s): R13.10 - Dysphagia, unspecified (5) Type 2 diabetes mellitus Qualifiers: Diabetes mellitus compensation/benefits specialist insulin use: without compensation/benefits specialist use Diabetes mellitus complication status: without complication Qualified Code(s): E11.9 - Type 2 diabetes mellitus without complications (6) HTN (hypertension) Qualifiers: Hypertension type: essential hypertension Qualified Code(s): I10 - Essential (primary) hypertension
[2018-12-14] MEDS: tiZANidine 4 MG TABLET PO SCH ×5 (02:16→20:30)
[2018-12-14] MEDS: *HR* Heparin 5,000 UNIT/ML VIAL SQ SCH ×2 (06:29→16:41)
[2018-12-14] MEDS: VOLTAREN GEL TP SCH ×4 (07:57→20:31)
[2018-12-14] MEDS: Insulin LISPRO 300 UNITS/3 ML VIAL SQ SCH ×3 (08:06→16:42)
[2018-12-14] MEDS: Aspirin Enteric Coated 81 MG Tablet PO SCH (08:07)
[2018-12-14] MEDS: Cholestyramine 4 GM POWD.PACK PO SCH ×2 (08:07→20:29)
[2018-12-14] MEDS: hydroCHLOROthiazide 25 MG TABLET PO SCH (08:07)
[2018-12-14] MEDS: Fluticasone Propionate Nasal 50 MCG/SPRAY BOTTLE NS SCH (08:07)
[2018-12-14] MEDS: Gabapentin 300 MG CAPSULE PO SCH ×3 (08:08→20:30)
[2018-12-14] MEDS: Metoprolol 100 MG TABLET PO SCH ×2 (08:08→20:30)
[2018-12-14] MEDS: amLODIPine 5 MG TABLET PO SCH (09:08)
[2018-12-14] MEDS: *HR* OxyCODONE/APAP 5/325 TABLET PO PRN (12:47)
[2018-12-14] MEDS ORDERED: Mag Hydrox/Al Hydrox/Simeth 30 ML UDC PO PRN (13:47)
--- NOTE | 2018-12-14 14:58 | Electrocardiograph Report ---
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
[2018-12-14] MEDS: Acetaminophen 325 MG TABLET PO PRN (16:41)
[2018-12-14] MEDS: Lisinopril 20 MG TABLET PO SCH (20:30)
[2018-12-14] MEDS: rOPINIRole 1 MG TABLET PO SCH (20:30)
--- NOTE | 2018-12-14 22:49 | Internal Med Progress Note ---
Hospitalist Progress Note - Encounter Date of Encounter: 12/14/18 Time of Encounter: 15:00 - Subjective Interval History: SUBJECTIVE: The patient feels pretty good. She continues to have mild weakness in left leg. She is not able to ambulate by herself. She needs a walker/assistance. Denies headache. Denies dizziness/lightheadedness. Denies problems related to vision and hearing. Denies chest pain and difficulty breathing. Denies coughing and wheezing. OBJECTIVE: Skin: Free of rash and discoloration. ENMT: Oral/pharyngeal mucosa is normal in appearance. Eyes: Sclera is white. There is no discharge from eyes. Respiratory: Normal breath sounds; no crackles or wheezes. CV: Heart is regular; no gallop or murmur. GI: Abdomen is soft and not tender. There is no palpable mass or visceromegaly. Neuro: There is mild weakness in left lower extremity. Testing for ataxia is negative bilaterally. 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 Right-sided lacunar infarction in right cerebellum seems to be an accidental finding. See notes from neurology. The patient takes aspirin, Plavix and Lipitor. She gets physical therapy; to be continued in ECF. Dysphagia. See notes from speech therapy. To continue modified diet. Type 2 diabetes mellitus. Currently on when necessary Humalog. She will be taking her metformin and glimepiride in outpatient settings. Hypertension. I can see her increased blood pressure. I will add amlodipine to Lopressor and Zestril. DISPOSITION: She will go to ECF, as soon as a bed is available. - Exam Vitals: Temp Pulse Resp BP Pulse Ox 97.7 F 64 19 132/65 97 12/14/18 22:31 12/14/18 22:31 12/14/18 16:31 12/14/18 22:31 12/14/18 16:31 Exam: xx - Assessment and Plan (1) CVA (cerebral vascular accident) Current Visit: Yes Status: Acute (2) Occlusion of left vertebral artery Current Visit: Yes Status: Acute (3) Right-sided lacunar infarction Current Visit: Yes Status: Acute (4) Dysphagia Current Visit: Yes Status: Acute (5) Type 2 diabetes mellitus Current Visit: Yes Status: Acute (6) HTN (hypertension) Current Visit: No Status: Chronic - Time Spent with Patient Total time spent is greater than 50% in coordination of care (as documented) at patient's floor/unit and/or counseling patient: 25 - 35 minutes Plan of Care Discussed with: patient Internal Medicine: Result - Labs CBC & Chem 7: 12/12/18 03:29 12/12/18 03:29 - ABG Interpretation ABG results: PT/INR, D-dimer PT 10.7 Seconds (9.4-12.1) 12/11/18 05:58 Consult Discharge Plan - Plan Referrals: Adalid Scott DO [Primary Care Provider] - (1) CVA (cerebral vascular accident) Qualifiers: CVA mechanism: unspecified Qualified Code(s): I63.9 - Cerebral infarction, unspecified (4) Dysphagia Qualifiers: Dysphagia type: unspecified Qualified Code(s): R13.10 - Dysphagia, unspecif ied (5) Type 2 diabetes mellitus Qualifiers: 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
[2018-12-15] MEDS: *HR* OxyCODONE/APAP 5/325 TABLET PO PRN ×2 (00:46→13:26)
[2018-12-15] MEDS: Ondansetron 4 MG/2 ML VIAL IVP PRN (03:37)
[2018-12-15] MEDS: *HR* Heparin 5,000 UNIT/ML VIAL SQ SCH (06:52)
[2018-12-15] MEDS: Metoprolol 100 MG TABLET PO SCH (09:13)
[2018-12-15] MEDS: Aspirin Enteric Coated 81 MG Tablet PO SCH (09:13)
[2018-12-15] MEDS: Gabapentin 300 MG CAPSULE PO SCH ×2 (09:13→16:42)
[2018-12-15] MEDS: Cholestyramine 4 GM POWD.PACK PO SCH (09:14)
[2018-12-15] MEDS: hydroCHLOROthiazide 25 MG TABLET PO SCH (09:14)
[2018-12-15] MEDS: tiZANidine 4 MG TABLET PO SCH ×3 (09:14→16:42)
[2018-12-15] MEDS: amLODIPine 5 MG TABLET PO SCH (09:14)
[2018-12-15] MEDS: VOLTAREN GEL TP SCH ×3 (09:15→16:38)
[2018-12-15] MEDS: Fluticasone Propionate Nasal 50 MCG/SPRAY BOTTLE NS SCH (09:15)
[2018-12-15] MEDS: Insulin LISPRO 300 UNITS/3 ML VIAL SQ SCH ×3 (09:16→16:45)
[2018-12-15] MEDS ORDERED: GuaiFENesin Liq 200 MG/10 ML UDC PO PRN (10:08)
--- NOTE | 2018-12-15 14:07 | Discharge Summary ---
- NOTES TO OUTPATIENT PROVIDER Notes to Outpatient Provider: Pt's Hb A1c is 11.9 and also noted was significant proteinuria, will need transition from PO hypoglycemics to Insulin. 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 insulin use: without exterminator helper termite use Diabetes mellitus complication status: without complication Qualified Code(s): E11.9 - Type 2 diabetes mellitus without complications (3) Dysphagia Priority: Secondary Status: Acute Qualifiers: Dysphagia type: unspecified Qualified Code(s): R13.10 - Dysphagia, unspecified (4) Headache Priority: Secondary Status: Acute Qualifiers: Headache type: unspecified Headache chronicity pattern: acute headache Intractability: not intractable Qualified Code(s): R51 - Headache (5) Occlusion of left vertebral artery Priority: Secondary Status: Acute (6) HTN (hypertension) Priority: Secondary Status: Chronic Qualifiers: Hypertension type: essential hypertension Qualified Code(s): I10 - Essential (primary) hypertension Hospital course: Ms. Mathis is a 63 year old female with PMHx of HTN, DM type 2 presented w/ left sided weakness and dysphagia admitted with acute CVA. Pt's MRI showed Acute lacunar infarct within the right cerebral hemisphere. CTA showed left occluded verterbral artery. Neurology was consulted; no intervention per [facility]. Pt placed on ASA plavix and statin. 2D Echo was done which showed mild diastolic dysfunction, Carotid doppler showed nl right carotids and left side w/ 40-50% stenosis. Tobacco cessation counseling, pt placed on patch.PT/OT consulted. Pt's HbA1c noted to be 11.9 w/ significant proteinuria. Pt currently on PO hypoglycemics will need to transition to Insulin and will need teaching. Pt already on Lisinopril. Pt had a swallow eval and soft diet w/ chopped meat was recommended which patient tolerated. Pt medically stable for discharge to Rehab Discharge discussed with: patient - Time Spent with Patient Total time spent providing and/or coordinating discharge services: Less than 30 minutes - Discharge Medications Prescriptions: Guaifenesin [Diabetic Siltussin Anderson-Na] 100 mg PO Q6HR #30 liquid Home Medications: Albuterol Sulfate [Albuterol Inhaler] 2 puff IH Q4HR PRN 02/24/17 [History] Aspirin [Lo-Dose Aspirin EC] 81 mg PO DAILY 02/24/17 [History] Buspirone HCl [Buspar] 10 mg PO BID 02/24/17 [History] Cilostazol [Pletal] 100 mg PO BID 02/24/17 [History] Gabapentin [Neurontin] 600 mg PO TID 02/24/17 [History] Glimepiride [Amaryl] 1 mg PO BID 02/24/17 [History] Lisinopril [Zestril] 20 mg PO HS 02/24/17 [History] Metformin HCl [Glucophage] 1,000 mg PO BID 02/24/17 [History] Nitroglycerin [Nitrostat] 0.4 mg SL Q5M PRN 02/24/17 [History] SUMAtriptan succinate [Imitrex] 50 mg PO ONCE PRN 02/24/17 [History] Sertraline [Zoloft] 100 mg PO DAILY 02/24/17 [History] Tizanidine HCl 4 mg PO QID 02/24/17 [History] hydrOXYzine HCl [Hydroxyzine HCl] 25 mg PO Q8H PRN 02/24/17 [History] Dextran 70/Hypromellose/Pf [Artificial Tears Drops] 1 drop BOTH EYES BID 12/10/18 [History] Diclofenac Sodium 1 appl TP BID 12/11/18 [History] Fluticasone Propionate Nasal [Flonase] 1 spray NS DAILY 12/11/18 [History] Metoprolol Tartrate 100 mg PO BID 12/11/18 [History] Ropinirole HCl [Requip] 0.5 mg PO HS 12/11/18 [History] Acetaminophen [Tylenol] 325 mg PO Q8HR PRN tablet 12/15/18 [Rx] Atorvastatin [Lipitor] 40 mg PO HS tablet 12/15/18 [Rx] Cholestyramine 4 gm PO BID powd.pack 12/15/18 [Rx] Clopidogrel [Plavix] 75 mg PO DAILY tablet 12/15/18 [Rx] Guaifenesin [Diabetic Siltussin Anderson-Na] 100 mg PO Q6HR #30 liquid 12/15/18 [Rx] Mag Hydrox/Al Hydrox/Simeth [Maalox] 30 ml PO Q4H PRN udc 12/15/18 [Rx] Nicotine Patch [Nicoderm] 21 mg TD DAILY PRN patch.td24 12/15/18 [Rx] amLODIPine [Norvasc] 10 mg PO DAILY tablet 12/15/18 [Rx] hydroCHLOROthiazide [Hydrochlorothiazide] 12.5 mg PO QAM tablet 12/15/18 [Rx] rOPINIRole [Requip] 1 mg PO HS tablet 12/15/18 [Rx] Allergies/Adverse Reactions: Allergy/AdvReac Type Severity Reaction Status Date / Time Amoxicillin [From Augmentin] AdvReac "INSTANT Verified 12/11/18 21:07 DIARRHEA" clavulanic acid AdvReac "INSTANT Verified 12/11/18 21:07 [From Augmentin] DIARRHEA" latex AdvReac "EATS MY Verified 12/11/18 21:07 SKIN UP, RASH" Date of admission: 12/11/18 14:46 Primary care physician: Adalid Scott DO Consults: 12/10/18 18:58 Consult to Neurology [CONS] Routine Consulting Provider: Neurology [facility] Reason for Consult: stroke, discussed with Dr. Hughes Time Notified: 19:45 Call Completed: Yes Consult to Occupational Therapy [CONS] Routine Comment: Evaluate, develop and implement POC Reason for Consult: stroke Does patient have active BEDREST order?: No Is patient medically & hemodynamically stable?: Yes Patient assessed for mobility or mobilized this visit?: Yes Consult to Physical Therapy [CONS] Routine Comment: Evaluate, develop and implement POC Reason for Consult: stroke Does patient have active BEDREST order?: No Is patient medically & hemodynamically stable?: Yes Patient assessed for mobility or mobilized this visit?: Yes Consult to [employer] Reading Teacher [CONS] Routine Reason for SW Consult: stroke - Constitutional Vitals: Temp Pulse Resp BP Pulse Ox 98.1 F 72 16 139/91 95 12/15/18 11:46 12/15/18 11:46 12/15/18 11:46 12/15/18 11:46 12/15/18 11:46 General appearance: Present: cooperative, A&O X 3, pleasant, no acute distress, answers questions appropriately Exam: General - Pt sitting up in bed, NAD HEENT - NC/AT, PERRLA Neck - supple/ NAD CVS - RRR, nl S1, S2 Lungs - CTA B/L Abdomen - soft NT/ND BS+ Ext - no edema Neuro - CN II - XII intact, LUE and LLE 4/5 strength, RUE/RLE 5/5 strength. Left pronator drift, dec sensation on LLE Skin - dry, no rashes - Patient Status Disposition: Transfer SNF Condition: Fair Overall status at discharge: other (Pt had an acute CVA, pt may or may go back to baseline however is improving) - Discharge Instructions Follow Up With: Adalid Scott DO [Primary Care Provider] - Neurology [Other] - Diet and Activity Activity: increase activity as tolerated Diet: other (Soft diet w/ chopped meat)
[2018-12-15] MEDS ORDERED: D5% in Water 1,000 ML IVC PRN (14:45)
[2018-12-15] MEDS ORDERED: *HR* Dextrose 50 % in Water (Syg) 50 ML SYRINGE IVP PRN (14:45)
[2018-12-15] MEDS ORDERED: Dextrose Gel 15 GM/37.5 ML TUBE PO PRN ×2 (14:45)
--- NOTE | 2018-12-15 15:08 | Physician Discharge Referral ---
ExtendedCare Referral Info Transfer To: [facility] Provider in Charge after Transfer: PCP - Diagnosis (1) CVA (cerebral vascular accident) Status: Acute (2) Diabetes Status: Chronic (3) Dysphagia Status: Acute (4) Headache Status: Acute (5) Occlusion of left vertebral artery Status: Acute (6) HTN (hypertension) Status: Chronic - Transfer Medications Prescriptions: Guaifenesin [Diabetic Siltussin Anderson-Na] 100 mg PO Q6HR #30 liquid Home Medications: Albuterol Sulfate [Albuterol Inhaler] 2 puff IH Q4HR PRN 02/24/17 [History] Aspirin [Lo-Dose Aspirin EC] 81 mg PO DAILY 02/24/17 [History] Buspirone HCl [Buspar] 10 mg PO BID 02/24/17 [History] Cilostazol [Pletal] 100 mg PO BID 02/24/17 [History] Gabapentin [Neurontin] 600 mg PO TID 02/24/17 [History] Glimepiride [Amaryl] 1 mg PO BID 02/24/17 [History] Lisinopril [Zestril] 20 mg PO HS 02/24/17 [History] Metformin HCl [Glucophage] 1,000 mg PO BID 02/24/17 [History] Nitroglycerin [Nitrostat] 0.4 mg SL Q5M PRN 02/24/17 [History] SUMAtriptan succinate [Imitrex] 50 mg PO ONCE PRN 02/24/17 [History] Sertraline [Zoloft] 100 mg PO DAILY 02/24/17 [History] Tizanidine HCl 4 mg PO QID 02/24/17 [History] hydrOXYzine HCl [Hydroxyzine HCl] 25 mg PO Q8H PRN 02/24/17 [History] Dextran 70/Hypromellose/Pf [Artificial Tears Drops] 1 drop BOTH EYES BID 12/10/18 [History] Diclofenac Sodium 1 appl TP BID 12/11/18 [History] Fluticasone Propionate Nasal [Flonase] 1 spray NS DAILY 12/11/18 [History] Metoprolol Tartrate 100 mg PO BID 12/11/18 [History] Ropinirole HCl [Requip] 0.5 mg PO HS 12/11/18 [History] Acetaminophen [Tylenol] 325 mg PO Q8HR PRN tablet 12/15/18 [Rx] Atorvastatin [Lipitor] 40 mg PO HS tablet 12/15/18 [Rx] Cholestyramine 4 gm PO BID powd.pack 12/15/18 [Rx] Clopidogrel [Plavix] 75 mg PO DAILY tablet 12/15/18 [Rx] Guaifenesin [Diabetic Siltussin Anderson-Na] 100 mg PO Q6HR #30 liquid 12/15/18 [Rx] Mag Hydrox/Al Hydrox/Simeth [Maalox] 30 ml PO Q4H PRN udc 12/15/18 [Rx] Nicotine Patch [Nicoderm] 21 mg TD DAILY PRN patch.td24 12/15/18 [Rx] amLODIPine [Norvasc] 10 mg PO DAILY tablet 12/15/18 [Rx] hydroCHLOROthiazide [Hydrochlorothiazide] 12.5 mg PO QAM tablet 12/15/18 [Rx] rOPINIRole [Requip] 1 mg PO HS tablet 12/15/18 [Rx] Allergies/Adverse Reactions: Allergy/AdvReac Type Severity Reaction Status Date / Time Amoxicillin [From Augmentin] AdvReac "INSTANT Verified 12/11/18 21:07 DIARRHEA" clavulanic acid AdvReac "INSTANT Verified 12/11/18 21:07 [From Augmentin] DIARRHEA" latex AdvReac "EATS MY Verified 12/11/18 21:07 SKIN UP, RASH" - Respiratory Orders Smoking Cessation: Smoking cessation has been advised. For more information, call the [place] Tobacco Quit Line at 3-301-XFWE-NOW. CERTIFICATION: I certify that the transfer of the above named patient to an Extended Care Facility is necessary for the continuing treatment of the diagnosis listed. The above information is true and accurate reflection of patient's current condition. Confidential - Redisclosure prohibited without a patient's written consent.
[2018-12-15 15:35] VITALS: BP 119/62
[2018-12-15] MEDS ORDERED: Insulin LISPRO 300 UNITS/3 ML VIAL SQ SCH (16:30)
[2018-12-15] MEDS ORDERED: Insulin DETEMIR 100 UNIT/ML X5UNITS SQ SCH (21:00)
== END 2018-12-15 19:13 | DRG 45 ==
LOC: 2NENU → SUATTDRO 18:20
PROVIDERS: ADMIT Hospitalist; ATTEND Hospitalist

== ENCOUNTER 2019-05-07 17:05 | Inpatient (IN) ==
[2019-05-07] MEDS ORDERED: Naloxone 0.4 MG/ML INJ IVP PRN (19:20)
[2019-05-07] MEDS ORDERED: Acetaminophen 325 MG TABLET PO PRN (19:20)
--- NOTE | 2019-05-07 19:39 | Internal Med History&Physical ---
<HeinBaltazar Manuel - Last Filed: 05/07/19 20:06> Date of Encounter: 05/07/19 Time of Encounter: 19:39 Internal Medicine - H&P: HPI Chief complaint: headache, nausea, vomiting Admitted From: Hospital to Hospital Transfer Plans for Post Hospital Care: Home History of present illness: Ms. Mathis is a 63 year old female with past medical history stroke, migraines, type 2 diabetes, COPD, hypertension who presented to [facility] with the chief complaints of migraine, nausea, vomiting, diarrhea the presented 6 days ago and have remained constant. She describes the migraine as occurring first, is generalized, throbbing, associated with photophobia and phonophobia. Nausea, vomiting, diarrhea and also been constant over 6 days, have led to anorexia and poor by mouth intake. She denies any associated chest pain, lightheadedness or dizziness, falls, focal weakness, abdominal pain, bloody bowel movements or h ematemesis. She does complain of associated shortness of breath but states that she does have COPD. Labs and CT head at [facility] revealed hyponatremia of 119 but were otherwise noncontributory. She endorses a family history of diabetes, denies family history or personal history of cancer or renal disease. She denies alcohol or drug use, is a former smoker. Past Med Surg Social Fam HX - Past Medical History Medical history: CVA, diabetes, hypertension Additional medical history: anxiety disorder. htn. nicotine addiction. bipolar disorder. hip arthritis. diabetes mellitus. PAD. COPD. DVT. latex allergy Psychiatric history: anxiety, panic disorder - Past Surgical History Surgical History: appendectomy, , LE bypass Additional surgical history: eye surgery - Social History Smoking Status: Current every day smoker Packs per day: 1/4 Smokeless Tobacco Status: No Alcohol use: none Drug use: none - Family History Father Hx Family Cancer: No Hx Family Endocrine Disorder: Yes (Diabetes) Mother Hx Family Cancer: No Hx Family Endocrine Disorder: No Internal Medicine - H&P: Meds Albuterol Sulfate [Albuterol Inhaler] 2 puff IH Q4HR PRN 02/24/17 [History] Aspirin [Lo-Dose Aspirin EC] 81 mg PO DAILY 02/24/17 [History] Buspirone HCl [Buspar] 10 mg PO BID 02/24/17 [History] Cilostazol [Pletal] 100 mg PO BID 02/24/17 [History] Gabapentin [Neurontin] 600 mg PO QID 02/24/17 [History] Glimepiride [Amaryl] 4 mg PO DAILY 02/24/17 [History] Lisinopril [Zestril] 20 mg PO HS 02/24/17 [History] Metformin HCl [Glucophage] 1,000 mg PO BID 02/24/17 [History] Nitroglycerin [Nitrostat] 0.4 mg SL Q5M PRN 02/24/17 [History] Sertraline [Zoloft] 100 mg PO DAILY 02/24/17 [History] Tizanidine HCl 4 mg PO TID 02/24/17 [History] hydrOXYzine HCl [Hydroxyzine HCl] 25 mg PO Q8H PRN 02/24/17 [History] Dextran 70/Hypromellose/Pf [Artificial Tears Drops] 1 drop BOTH EYES BID 12/10/18 [History] Diclofenac Sodium 1 appl TP BID 12/11/18 [History] Fluticasone Propionate Nasal [Flonase] 1 spray NS DAILY 12/11/18 [History] Metoprolol Tartrate 100 mg PO BID 12/11/18 [History] Acetaminophen [Tylenol] 325 mg PO Q8HR PRN tablet 12/15/18 [Rx] Clopidogrel [Plavix] 75 mg PO DAILY tablet 12/15/18 [Rx] rOPINIRole [Requip] 1 mg PO HS tablet 12/15/18 [Rx] HYDROcodone/Acet 5/325 mg [Asher 5-325 mg] 1 tab PO Q4H PRN MDD 6 05/07/19 [History] hydroCHLOROthiazide [Hydrochlorothiazide] 25 mg PO QAM 05/07/19 [History] Allergy/AdvReac Type Severity Reaction Status Date / Time Amoxicillin [From Augmentin] AdvReac "INSTANT Verified 12/11/18 21:07 DIARRHEA" clavulanic acid AdvReac "INSTANT Verified 12/11/18 21:07 [From Augmentin] DIARRHEA" latex AdvReac "EATS MY Verified 12/11/18 21:07 SKIN UP, RASH" All Systems PM: A 10-system review of systems was performed and is negative for pertinent findings except as documented above in the HPI. - Constitutional Constitutional: no chills, no fever(s) - EENT Eyes: blurry vision, photophobia - Cardiovascular Cardiovascular ROS IM: no chest pain, no diaphoresis, no edema, no palpitations, no syncope - Respiratory Respiratory: dyspnea on exertion, no cough - Gastrointestinal Gastrointestinal: diarrhea, no abdominal pain - Genitourinary Genitourinary: no dysuria, no urinary frequency, no urinary hesitancy - Musculoskeletal Musculoskeletal ROS IM: arthralgias - Integumentary Integumentary IM: other (Insect bite on the left breast) - Neurological Neurological ROS: abnormal gait, headache(s), no abnormal speech, no confusion, no convulsions, no dizziness, no focal weakness - Endocrine Endocrine IM: no polyuria - Constitutional Vitals: Temp Pulse Resp BP Pulse Ox 98.4 F 75 14 154/60 95 05/07/19 18:18 05/07/19 18:18 05/07/19 18:18 05/07/19 18:18 05/07/19 18:18 General appearance: Present: A&O X 3, no acute distress, answers questions appropriately Exam: Alert and oriented, normal affect Cranial nerves II through XII intact, no focal deficits Pupils equal and reactive to light, extraocular movements intact Heart in regular rate and rhythm without murmur or gallop auscultated Lungs clear to auscultation bilaterally without adventitia noted Abdomen soft and nontender with normal bowel sounds noted Motor 5/5 in all 4 extremities, sensation intact Skin warm and dry without rash, bruising, bleeding noted There is a 1 cm x 1 cm open skin lesion under the left breast, it is not indurated or fluctuant, draining or purulent, warm or erythematous - Assessment and Plan (1) Hyponatremia Current Visit: Yes Status: Acute Assessment and plan: Patient was transferred from [facility] because of sodium of 119 She does not appear to be symptomatic, is not exhibiting neurological deficits, and CT of the head at [facility] was negative for acute intracranial abnormality On review of previous labs this appears to be chronic, sodium in March of this year was 125 I suspect this exacerbation of chronic hyponatremia is secondary to her recent week of vomiting and diarrhea and poor by mouth intake She was given 1 L normal saline bolus at [facility] and was transferred, urine sodium and osmolality were not performed Repeat labs including BMP, urine sodium and osmolality ordered and pending Based on repeat sodium will evaluate how her sodium responded to liter bolus at [facility] Based on chronic nature and poor by mouth intake etiology of her hyponatremia I do not anticipate the patient will require hypertonic saline If her sodium is responding appropriately I anticipate normal saline maintenance fluids and increase of sodium in 4-6 mEq over the next 24 hours (2) Migraine Current Visit: Yes Status: Chronic Assessment and plan: Patient has history of chronic migraines, she does take sumatriptan at home Her current migraine has been for 6 days, she denies taking anything at home for relief Is associated with photophobia and phonophobia, possibly with nausea and vomiting We will treat with acetaminophen and Fioricet and correction of electrolytes and fluid status Qualifiers: Migraine type: chronic without aura Status migrainosus presence: with status migrainosus Intractability: intractable Qualified Code(s): G43.711 - Chronic migraine without aura, intractable, with status migrainosus (3) Nausea and vomiting Current Visit: Yes Status: Acute Assessment and plan: 1 week of nausea and vomiting of unknown etiology, associated poor by mouth intake She has not vomited since presenting to the ICU We will treat with when necessary Zofran Qualifiers: Vomiting type: unspecified Vomiting Intractability: non-intractable Qualified Code(s): R11.2 - Nausea with vomiting, unspecified (4) Diarrhea Current Visit: Yes Status: Acute Assessment and plan: 1 week of diarrhea of unknown etiology She has not had a bowel movement since arriving to the ICU She does not have associated abdominal pain, white count was in within normal limits and she does not have a history of GI disorders We will continue to monitor and supplement fluid volume Qualifiers: Diarrhea type: unspecified type Qualified Code(s): R19.7 - Diarrhea, unspecified (5) Diabetes Current Visit: No Status: Chronic Assessment and plan: Diabetic diet, before meals at bedtime Accu-Cheks, 10 of Levemir at night and low-dose sliding scale insulin correction protocol Qualifiers: Diabetes mellitus type: type 2 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: with custodial use Diabetes mellitus complication status: without complication Qualified Code(s): E11.9 - Type 2 diabetes mellitus without complications; Z79.4 - retirement (current) use of insulin (6) HTN (hypertension) Current Visit: Yes Status: Chronic Assessment and plan: Patient has history of chronic hypertension treated at home with lisinopril and hydrochlorothiazide and amlodipine and metoprolol Her blood pressure is elevated here but not associated with signs of end organ damage We will continue to monitor and treat with home medications once reconciled excluding hydrochlorothiazide which may have attributed to her hyponatremia Qualifiers: Hypertension type: essential hypertension Qualified Code(s): I10 - Essential (primary) hypertension - Time Spent With Patient Total time spent is greater than 50% in coordination of care (as documented) at patient's floor/unit and/or counseling patient: JadaJohnathanPorter - Last Filed: 05/07/19 20:57> Date of Encounter: 05/07/19 All Systems PM: A 10-system review of systems was performed and is negative for pertinent findings except as documented above in the HPI. - Constitutional Vitals: Temp Pulse Resp BP Pulse Ox 98.4 F 75 14 154/60 95 05/07/19 18:18 05/07/19 18:18 05/07/19 18:18 05/07/19 18:18 05/07/19 18:18 Internal Med - H&P Results - Labs CBC & Chem 7: 05/07/19 20:05 05/07/19 20:05 Labs: Short CBC 05/07/19 Range/Units 20:05 WBC 10.1 (4.3-11.1) K/mcL Hgb 10.7 L (11.5-15.4) g/dL Hct 30.4 L (35.3-44.9) % Plt Count 410 H (140-400) K/mcL Neutrophils # 6.1 (1.6-8.9) K/mcL BMP 05/07/19 20:05 Sodium 119 L* Potassium 4.3 Chloride 88 L Carbon Dioxide 22 L BUN 22 Creatinine 0.98 Glucose 204 H Calcium 8.4 L Liver Function 05/07/19 Range/Units 20:05 Total Bilirubin 0.1 L (0.3-1.0) mg/dL AST 11 L (13-39) Units/L ALT 10 (7-52) Units/L Alkaline Phosphatase 58 (34-104) Units/L Albumin 3.2 L (3.5-5.7) g/dL - Time Spent With Patient Total time spent is greater than 50% in coordination of care (as documented) at patient's floor/unit and/or counseling patient: - Attending Attestation I performed a history and physical exam of the patient and discussed management with the resident. I reviewed the resident's note and agree with the documented findings and plan of care. Liam Mathis is a 63 year old woman who presents on transfer from [facility] with the complaint of 4 days of throbbing headaches accompanied by phono/photophobia and in the last 3 days profuse watery diarrhea and vomiting leading to reduced intake. She was found to be hyponatremic at 119 and sent here for further care. On my assessment she is AAOx3 and not in acute distress. She has dry skin and mucous membranes, non- tender abdomen but slightly distended, no c/c/e. No focal deficits. Affect appropriate. Suspect her hyponatremia is hypovolemic in origin from poor intake and ongoing GI losses while also taking HCTZ. She is also hypochloremic. She is not neurologically symptomatic warranting the use of hypertonic saline at this time. Will attempt a trial of normal saline and recheck her serum sodium in 2 hours. Depending on what direction she takes, further management will be dependent on this. 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
[2019-05-07] MEDS ORDERED: Acetaminophen/Butalbital/CaffeineTABLET PO PRN (19:58)
[2019-05-07] MEDS ORDERED: *HR* Dextrose 50 % in Water (Syg) 50 ML SYRINGE IVP PRN (19:58)
[2019-05-07] MEDS ORDERED: Dextrose Gel 15 GM/37.5 ML TUBE PO PRN ×2 (19:58)
[2019-05-07] MEDS ORDERED: D5% in Water 1,000 ML IVC PRN (19:58)
[2019-05-07] MEDS ORDERED: Ondansetron 4 MG/2 ML VIAL IVP PRN (20:01)
[2019-05-07 20:16] LABS: Basophils % 0.2 %; Eosinophils # 0.3 K/mcL (0.0-0.6); Eosinophils % 3.4 %; Hematocrit 30.4 % (35.3-44.9); Hemoglobin 10.7 g/dL (11.5-15.4); Immature Granulocytes % 0.9 % (0-4); Lymphocytes # 2.9 K/mcL (0.6-4.6); Lymphocytes % 29.1 %; Mean Corpuscular HGB Conc 35.2 g/dL (31.6-35.5); Mean Corpuscular Hemoglobin 29.5 pg (28.0-33.3); Mean Corpuscular Volume 83.7 fL (83.0-100.0); Mean Platelet Volume 7.6 fL (9.4-12.4); Monocytes # 0.6 K/mcL (0.0-1.3); Monocytes % 6.2 %; Neutrophils # 6.1 K/mcL (1.6-8.9); Platelet Count 410 K/mcL (140-400); Red Blood Count 3.63 M/mcL (3.82-4.97); Red Cell Distribution Width 12.4 % (11.5-14.5); Segmented Neutrophils % 60.2 %; White Blood Count 10.1 K/mcL (4.3-11.1)
[2019-05-07 20:38] LABS: Alanine Aminotransferase 10 Units/L (7-52); Albumin 3.2 g/dL (3.5-5.7); Albumin/Globulin Ratio 1.4 (1.1-2.2); Alkaline Phosphatase 58 Units/L (34-104); Aspartate Amino Transferase 11 Units/L (13-39); BUN/Creatinine Ratio 22 (6-26); Bilirubin,Total 0.1 mg/dL (0.3-1.0); Blood Urea Nitrogen 22 mg/dL (8-23); Calcium 8.4 mg/dL (8.6-10.3); Carbon Dioxide 22 mEq/L (23-29); Chloride 88 mEq/L (98-107); Globulin 2.3 g/dL (2.4-3.5); Glucose 204 mg/dL (70-105); Magnesium 1.6 mg/dL (1.6-2.6); Osmolality,Calculated 257 (280-300); Phosphorous 3.6 mg/dL (2.7-4.5); Potassium 4.3 mEq/L (3.5-5.1); Sodium 119 mEq/L (136-145); Total Protein 5.5 g/dL (6.4-8.9); eGFR For African Americans > 60 (> 60); eGFR For Non-African Americans 58 (> 60)
[2019-05-07] MEDS ORDERED: 0.9 % Sodium Chloride 1,000 ML IVC ONE (20:43)
[2019-05-07] MEDS ORDERED: 0.9 % Sodium Chloride 2,000 ML ONE (20:44)
[2019-05-07] MEDS ORDERED: hydrOXYzine pamoate 25 MG CAPSULE PO PRN (20:44)
[2019-05-07] MEDS ORDERED: Insulin LISPRO 300 UNITS/3 ML VIAL SQ SCH (21:00)
[2019-05-07] MEDS ORDERED: rOPINIRole 1 MG TABLET PO SCH (21:00)
[2019-05-07] MEDS ORDERED: Metoprolol 100 MG TABLET PO SCH (21:00)
[2019-05-07] MEDS ORDERED: (Diclofenac Sodium 1 APPL) TP SCH (21:00)
[2019-05-07] MEDS ORDERED: Insulin DETEMIR 100 UNIT/ML X5UNITS SQ SCH (21:00)
[2019-05-07] MEDS ORDERED: Gabapentin 300 MG CAPSULE PO SCH (21:00)
[2019-05-07] MEDS ORDERED: tiZANidine 4 MG TABLET PO SCH (21:00)
[2019-05-07] MEDS ORDERED: Artificial Tears SOLN 15 ML BOTTLE BOTH EYES SCH (21:00)
[2019-05-07 21:27] LABS: Bilirubin,Urine Negative (Negative); Blood,Urine Trace (Negative); Clarity,Urine Clear (Clear); Color,Urine Yellow (Yellow); Glucose,Urine (UA) 100 mg/dL (Normal); Ketones,Urine Negative (Negative); Leukocyte Esterase,Urine Small (Negative); Nitrite,Urine Negative (Negative); PH,Urine 6.5 pH Units (5.0-8.0); Protein,Urine >=300 mg/dL (Neg-Trace); Specific Gravity,Urine 1.016 (1.010-1.025); Urobilinogen,Urine Normal (Normal)
[2019-05-07 21:29] LABS: Bacteria,Urine None Seen per hpf (None-Few); Hyaline Casts,Urine None Seen per lpf (None-Few); Squamous Epithelial Cell,Urine Many per lpf (None-Few)
[2019-05-07] MEDS: 0.9 % Sodium Chloride 1,000 ML IVC SCH (21:49)
[2019-05-07] MEDS ORDERED: *HR* Heparin 5,000 UNIT/ML VIAL SQ SCH (22:00)
[2019-05-08 00:29] LABS: BUN/Creatinine Ratio 23 (6-26); Blood Urea Nitrogen 19 mg/dL (8-23); Calcium 7.6 mg/dL (8.6-10.3); Carbon Dioxide 22 mEq/L (23-29); Chloride 97 mEq/L (98-107); Glucose 56 mg/dL (70-105); Osmolality,Calculated 256 (280-300); Potassium 3.7 mEq/L (3.5-5.1); Sodium 123 mEq/L (136-145); eGFR For African Americans > 60 (> 60); eGFR For Non-African Americans > 60 (> 60)
[2019-05-08 04:37] LABS: BUN/Creatinine Ratio 22 (6-26); Blood Urea Nitrogen 19 mg/dL (8-23); Calcium 8.1 mg/dL (8.6-10.3); Carbon Dioxide 21 mEq/L (23-29); Chloride 96 mEq/L (98-107); Glucose 63 mg/dL (70-105); Osmolality,Calculated 254 (280-300); Potassium 4.3 mEq/L (3.5-5.1); Sodium 122 mEq/L (136-145); eGFR For African Americans > 60 (> 60); eGFR For Non-African Americans > 60 (> 60)
[2019-05-08] MEDS: 0.9 % Sodium Chloride 1,000 ML IVC SCH (04:46)
[2019-05-08] MEDS ORDERED: Naloxone 0.4 MG/ML INJ IVP PRN (04:53)
[2019-05-08] MEDS ORDERED: Dextrose Gel 15 GM/37.5 ML TUBE PO PRN ×2 (04:53)
[2019-05-08] MEDS ORDERED: Ondansetron 4 MG/2 ML VIAL IVP PRN (04:53)
[2019-05-08] MEDS ORDERED: 0.9 % Sodium Chloride 1,000 ML IVC SCH (04:53)
[2019-05-08] MEDS ORDERED: *HR* Dextrose 50 % in Water (Syg) 50 ML SYRINGE IVP PRN (04:53)
[2019-05-08] MEDS ORDERED: D5% in Water 1,000 ML IVC PRN (04:53)
[2019-05-08] MEDS: *HR* Heparin 5,000 UNIT/ML VIAL SQ SCH ×3 (06:10→23:10)
[2019-05-08] MEDS ORDERED: Insulin LISPRO 300 UNITS/3 ML VIAL SQ SCH (07:30)
[2019-05-08] MEDS: Acetaminophen/Butalbital/CaffeineTABLET PO PRN ×2 (07:57→17:04)
[2019-05-08] MEDS ORDERED: Fluticasone Propionate Nasal 50 MCG/SPRAY BOTTLE NS SCH (09:00)
[2019-05-08] MEDS ORDERED: Aspirin Enteric Coated 81 MG Tablet PO SCH (09:00)
[2019-05-08] MEDS: Insulin LISPRO 300 UNITS/3 ML VIAL SQ SCH ×4 (09:06→23:17)
[2019-05-08] MEDS: Aspirin Enteric Coated 81 MG Tablet PO SCH (09:11)
[2019-05-08] MEDS: Gabapentin 300 MG CAPSULE PO SCH ×3 (09:12→23:11)
[2019-05-08] MEDS: tiZANidine 4 MG TABLET PO SCH ×3 (09:12→23:12)
[2019-05-08] MEDS: Metoprolol 100 MG TABLET PO SCH ×2 (09:12→23:12)
[2019-05-08] MEDS: (Diclofenac Sodium 1 APPL) TP SCH ×2 (09:13→23:13)
[2019-05-08] MEDS: Fluticasone Propionate Nasal 50 MCG/SPRAY BOTTLE NS SCH (09:14)
[2019-05-08] MEDS: Artificial Tears SOLN 15 ML BOTTLE BOTH EYES SCH ×2 (09:15→23:15)
--- NOTE | 2019-05-08 10:34 | Internal Med Progress Note ---
Hospitalist Progress Note - Encounter Date of Encounter: 05/08/19 Time of Encounter: 10:31 - Subjective Interval History: Ms Mathis is currently admitted for hyponatremia and nausea/vomiting and diarrhea. She remains moderate to high risk due to potential for worsening clinical status. Ms Mathsi is having a significant headache. No fever or chills. Says headache and some stiffness of her neck began prior to the other symptoms. Had a central line in R side of neck that has been removed. No CP or SOB. Had a presumed tick bite on her L breast - was taking Bactrim for it. No further nausea at this time. No abdominal pain or urinary symptoms. - Exam Vitals: Temp Pulse Resp BP Pulse Ox 97.7 F 62 16 143/74 98 05/08/19 06:59 05/08/19 06:59 05/08/19 06:59 05/08/19 06:59 05/08/19 06:59 Exam: Gen: Alert and oriented. Mild distress due to headache. Head: Normocephalic EENT: Pupils reactive, EOMI. Mucus membranes dry. No lesion noted. Neck: Supple. Tenderness to palpation of bilateral posterior cervical paraspinal muscles. No rigidity. Heart: Regular. Not tachycardic. No murmur Lungs clear bilaterally Abd BS heard. Soft and nontender Ext: No edema. Pulses palpable Neuro: Alert and oriented. Skin: small hard area with minimal erythema on L outer lower breast. - Assessment and Plan (1) Hyponatremia Current Visit: Yes Status: Acute Assessment and Plan: Pt presented to ED with N/V/D and found to be hyponatremic (worse than baseline). Presumed due to hypovolemia and admitted to ICU and given IV fluids. Sodium improved to baseline levels. She has had no further vomiting or diarrhea. Continue to monitor and complete current bag of IV fluids. (2) Migraine Current Visit: Yes Status: Chronic Assessment and Plan: Pt has prior hx of migraine cephalgia. Has recurrent symptoms that are worse now: headache, photophobia, nausea Will give abortive meds - Imitrex makes her heart race. Will give IV Toradol and Norflex. May need further meds if does not resolve. (3) Diabetes Current Visit: No Status: Chronic Assessment and Plan: Following blood sugars with coverage. (4) HTN (hypertension) Current Visit: Yes Status: Chronic Assessment and Plan: Controlled at this time on current regimen. (5) CAD (coronary artery disease) Current Visit: No Status: Chronic Assessment and Plan: Chronic issue. No symptoms now. (6) Tick bite Current Visit: Yes Status: Acute Assessment and Plan: Pt reports probable tick bite on her L breast. Was treated with sulfa. Will give course of doxycycline. (7) Tobacco abuse Current Visit: Yes Status: Chronic Assessment and Plan: Cessation counseling (8) Nausea and vomiting Current Visit: Yes Status: Resolved Assessment and Plan: Appears improved. (9) Diarrhea Current Visit: Yes Status: Resolved Assessment and Plan: Appears to have resolved. - Time Spent with Patient Total time spent is greater than 50% in coordination of care (as documented) at patient's floor/unit and/or counseling patient: Internal Medicine: Result - Labs CBC & Chem 7: 05/07/19 20:05 05/08/19 13:47 Labs: Short CBC 05/07/19 Range/Units 20:05 WBC 10.1 (4.3-11.1) K/mcL Hgb 10.7 L (11.5-15.4) g/dL Hct 30.4 L (35.3-44.9) % Plt Count 410 H (140-400) K/mcL Neutrophils # 6.1 (1.6-8.9) K/mcL BMP 05/07/19 05/07/19 05/08/19 20:05 22:06 00:00 Sodium 119 L* 119 L* 123 L Potassium 4.3 3.7 Chloride 88 L 97 L Carbon Dioxide 22 L 22 L BUN 22 19 Creatinine 0.98 0.84 Glucose 204 H 56 L Calcium 8.4 L 7.6 L 05/08/19 05/08/19 02:04 04:05 Sodium 125 L 122 L Potassium 4.3 Chloride 96 L Carbon Dioxide 21 L BUN 19 Creatinine 0.85 Glucose 63 L Calcium 8.1 L Liver Function 05/07/19 Range/Units 20:05 Total Bilirubin 0.1 L (0.3-1.0) mg/dL AST 11 L (13-39) Units/L ALT 10 (7-52) Units/L Alkaline Phosphatase 58 (34-104) Units/L Albumin 3.2 L (3.5-5.7) g/dL Urine 05/07/19 Range/Units 20:55 Urine Color Yellow (Yellow) Urine Clarity Clear (Clear) Urine pH 6.5 (5.0-8.0) pH Units Ur Specific [place] 1.016 (1.010-1.025) Urine Protein >=300 H (Neg-Trace) mg/dL Urine Glucose (UA) 100 H (Normal) mg/dL Consult Discharge Plan - Plan Referrals: Adalid Scott DO [Primary Care Provider] - (2) Migraine Qualifiers: Migraine type: chronic without aura Status migrainosus presence: with status migrainosus Intractability: intractable Qualified Code(s): G43.711 - Chronic migraine without aura, intractable, with status migrainosus (3) Diabetes Qualifiers: Diabetes mellitus type: type 2 Diabetes 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 transplanted heart: [place] heart Associated angina: without angina Qualified Code(s): I25.10 - Atherosclerotic heart disease of [place] coronary artery without angina pectoris (6) Tick bite Qualifiers: Encounter type: initial encounter Qualified Code(s): W57.XXXA - Bitten or stung by nonvenomous insect and other nonvenomous arthropods, initial encounter (8) Nausea and vomiting Qualifiers: Vomiting type: unspecified Vomiting Intractability: non-intractable Qualified Code(s): R11.2 - Nausea with vomiting, unspecified (9) Diarrhea Qualifiers: Diarrhea type: unspecified type Qualified Code(s): R19.7 - Diarrhea, unspecified
[2019-05-08] MEDS: Doxycycline 100 MG in 0.9 % Sodium Chloride Mini Bag 100 ML IVPB SCH ×2 (13:59→17:05)
[2019-05-08] MEDS: hydrOXYzine pamoate 25 MG CAPSULE PO PRN (14:11)
[2019-05-08] MEDS: *HR* HYDROcodone/Acet 5/325 mg TABLET PO PRN (14:12)
--- NOTE | 2019-05-08 14:17 | Electrocardiograph Report ---
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
[2019-05-08] MEDS ORDERED: Acetaminophen/Butalbital/CaffeineTABLET PO PRN (17:18)
[2019-05-08] MEDS ORDERED: rOPINIRole 1 MG TABLET PO SCH (21:00)
[2019-05-08] MEDS ORDERED: NON-FORMULARY MEDICATION 1 EACH EACH (Insulin Glargine,Hum.Rec.Anlog [Basaglar Kwikpen U-1 SQ SCH (21:00)
[2019-05-08] MEDS ORDERED: Insulin DETEMIR 100 UNIT/ML X5UNITS SQ SCH (21:00)
[2019-05-08] MEDS: Famotidine 20 MG TABLET PO SCH (23:10)
[2019-05-08] MEDS: rOPINIRole 0.25 MG TABLET PO SCH (23:11)
[2019-05-08] MEDS: Lisinopril 20 MG TABLET PO SCH (23:12)
[2019-05-08] MEDS: Insulin DETEMIR 100 UNIT/ML X5UNITS SQ SCH (23:16)
[2019-05-09] MEDS: Doxycycline 100 MG in 0.9 % Sodium Chloride Mini Bag 100 ML IVPB SCH ×2 (05:46→17:01)
[2019-05-09] MEDS: *HR* Heparin 5,000 UNIT/ML VIAL SQ SCH ×3 (05:46→21:56)
[2019-05-09 06:44] LABS: Hematocrit 31.5 % (35.3-44.9); Hemoglobin 10.4 g/dL (11.5-15.4); Mean Corpuscular Hemoglobin 29.1 pg (28.0-33.3); Mean Platelet Volume 7.9 fL (9.4-12.4); Platelet Count 390 K/mcL (140-400); Red Blood Count 3.58 M/mcL (3.82-4.97); Red Cell Distribution Width 12.8 % (11.5-14.5); White Blood Count 6.7 K/mcL (4.3-11.1)
[2019-05-09 07:07] LABS: BUN/Creatinine Ratio 26 (6-26); Blood Urea Nitrogen 21 mg/dL (8-23); Calcium 8.6 mg/dL (8.6-10.3); Carbon Dioxide 20 mEq/L (23-29); Chloride 104 mEq/L (98-107); Glucose 124 mg/dL (70-105); Magnesium 1.8 mg/dL (1.6-2.6); Osmolality,Calculated 274 (280-300); Potassium 4.6 mEq/L (3.5-5.1); Sodium 130 mEq/L (136-145); eGFR For African Americans > 60 (> 60); eGFR For Non-African Americans > 60 (> 60)
[2019-05-09] MEDS: Aspirin Enteric Coated 81 MG Tablet PO SCH (08:36)
[2019-05-09] MEDS: Gabapentin 300 MG CAPSULE PO SCH ×3 (08:36→19:35)
[2019-05-09] MEDS: Metoprolol 100 MG TABLET PO SCH ×2 (08:37→19:35)
[2019-05-09] MEDS: tiZANidine 4 MG TABLET PO SCH (08:37)
[2019-05-09] MEDS: (Diclofenac Sodium 1 APPL) TP SCH ×2 (08:38→19:37)
[2019-05-09] MEDS: Fluticasone Propionate Nasal 50 MCG/SPRAY BOTTLE NS SCH (08:38)
[2019-05-09] MEDS: Artificial Tears SOLN 15 ML BOTTLE BOTH EYES SCH ×2 (08:38→19:37)
[2019-05-09] MEDS: *HR* HYDROcodone/Acet 5/325 mg TABLET PO PRN ×2 (08:39→14:17)
[2019-05-09] MEDS: Insulin LISPRO 300 UNITS/3 ML VIAL SQ SCH ×4 (08:39→21:55)
--- NOTE | 2019-05-09 09:16 | Internal Med Progress Note ---
Hospitalist Progress Note - Encounter Date of Encounter: 05/09/19 Time of Encounter: 09:14 - Subjective Interval History: Ms Mathis is currently hospitalized for N/V/D with hyponatremia and intractable headache. She remains moderate to high risk due to potential for worsening clincal and neurologic status. Ms Mathis is still having some nausea and diarrhea. Headache and photophobia persists. No fever or chills. Neck still hurts but can move. No CP or SOB. No new neuro issues. Feels unsteady on her feet when up and moving. - Exam Vitals: Temp Pulse Resp BP Pulse Ox 97.8 F 65 15 133/58 96 05/09/19 06:34 05/09/19 06:34 05/09/19 06:34 05/09/19 06:34 05/09/19 06:34 Exam: Gen: Alert and oriented. Less distress today. Head: Normocephalic EENT: Pupils reactive, EOMI. Mucus membranes moist. Neck: Supple. No rigidity. Continues to have muscle tenderness with movement and palpation of neck. Heart: Regular. No murmur. Not tachycardic. Lungs: Clear bilaterally with good effort. Abd: BS heard. Soft and nontender. Ext: No edema. Pulses palpable Neuro: Alert and oriented. Strength and sensation appears to be equal bilaterally. Skin: No change. - Assessment and Plan (1) Hyponatremia Current Visit: Yes Status: Acute Assessment and Plan: Pt presented to ED with N/V/D and found to be hyponatremic (worse than baseline). Sodium is 130 today and appears to be baseline for her. Recheck tomorrow AM. Fluids have been stopped. (2) Migraine Current Visit: Yes Status: Chronic Assessment and Plan: Headache persists. Says it improved a little yesterday but is back. Will give IV Depakote today. Start Topamax tonight. Continue other PO meds but will change muscle relaxant to Flexeril. Will ask PT/OT to see tomorrow. Pt reports feeling unsteady on her feet. (3) Diabetes Current Visit: No Status: Chronic Assessment and Plan: Appears to be controlled at this time. Continue monitoring. (4) HTN (hypertension) Current Visit: Yes Status: Chronic Assessment and Plan: Appears to be controlled. (5) CAD (coronary artery disease) Current Visit: No Status: Chronic Assessment and Plan: Chronic issue. No symptoms now. (6) Tick bite Current Visit: Yes Status: Acute Assessment and Plan: Pt reports probable tick bite on her L breast. Was treated with sulfa. Currently on IV Doxycycline Anticipate change to PO tomorrow. (7) Tobacco abuse Current Visit: Yes Status: Chronic Assessment and Plan: Cessation counseling (8) Nausea and vomiting Current Visit: Yes Status: Resolved Assessment and Plan: Still has some nausea but vomiting has resolved. (9) Diarrhea Current Visit: Yes Status: Resolved Assessment and Plan: Has resolved for the most part. - Time Spent with Patient Total time spent is greater than 50% in coordination of care (as documented) at patient's floor/unit and/or counseling patient: Internal Medicine: Result - Labs CBC & Chem 7: 05/09/19 05:44 05/09/19 05:44 Labs: Short CBC 05/09/19 Range/Units 05:44 WBC 6.7 (4.3-11.1) K/mcL Hgb 10.4 L (11.5-15.4) g/dL Hct 31.5 L (35.3-44.9) % Plt Count 390 (140-400) K/mcL BMP 05/08/19 05/08/19 05/09/19 13:47 21:44 05:44 Sodium 122 L 128 L 130 L Potassium 4.6 Chloride 104 Carbon Dioxide 20 L BUN 21 Creatinine 0.82 Glucose 124 H Calcium 8.6 Consult Discharge Plan - Plan Referrals: Adalid Scott DO [Primary Care Provider] - _ (2) Migraine Qualifiers: Migraine type: chronic without aura Status migrainosus presence: with status migrainosus Intractability: intractable Qualified Code(s): G43.711 - Chronic migraine without aura, intractable, with status migrainosus (3) Diabetes Qualifiers: Diabetes mellitus type: type 2 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 transplanted heart: [place] heart Associated angina: without angina Qualified Code(s): I25.10 - Atherosclerotic heart disease of [place] coronary artery without angina pectoris (6) Tick bite Qualifiers: Encounter type: subsequent encounter Qualified Code(s): W57.XXXD - Bitten or stung by nonvenomous insect and other nonvenomous arthropods, subsequent encounter (8) Nausea and vomiting Qualifiers: Vomiting type: unspecified Vomiting Intractability: non-intractable Qualified Code(s): R11.2 - Nausea with vomiting, unspecified (9) Diarrhea Qualifiers: Diarrhea type: unspecified type Qualified Code(s): R19.7 - Diarrhea, unspecified
[2019-05-09] MEDS ORDERED: Valproic Acid INJ 1,000 MG in 0.9 % Sodium Chloride 100 ML IVPB ONE (09:23)
[2019-05-09] MEDS: hydrOXYzine pamoate 25 MG CAPSULE PO PRN (14:23)
[2019-05-09] MEDS: Ketorolac 30 MG/ML VIAL IVP PRN (15:35)
[2019-05-09] MEDS: Famotidine 20 MG TABLET PO SCH (19:37)
[2019-05-09] MEDS: Lisinopril 20 MG TABLET PO SCH (19:37)
[2019-05-09] MEDS: Topiramate 25 MG TABLET PO SCH (19:37)
[2019-05-09] MEDS: rOPINIRole 0.25 MG TABLET PO SCH (19:37)
[2019-05-09] MEDS: Insulin DETEMIR 100 UNIT/ML X5UNITS SQ SCH (21:56)
[2019-05-10] MEDS: Doxycycline 100 MG in 0.9 % Sodium Chloride Mini Bag 100 ML IVPB SCH (05:57)
[2019-05-10] MEDS: *HR* Heparin 5,000 UNIT/ML VIAL SQ SCH ×3 (05:58→21:39)
[2019-05-10 07:05] LABS: Hematocrit 30.3 % (35.3-44.9); Mean Corpuscular Hemoglobin 29.6 pg (28.0-33.3); Mean Corpuscular Volume 89.6 fL (83.0-100.0); Mean Platelet Volume 7.9 fL (9.4-12.4); Platelet Count 398 K/mcL (140-400); Red Blood Count 3.38 M/mcL (3.82-4.97); Red Cell Distribution Width 12.7 % (11.5-14.5); White Blood Count 6.1 K/mcL (4.3-11.1)
[2019-05-10 07:30] LABS: BUN/Creatinine Ratio 30 (6-26); Blood Urea Nitrogen 26 mg/dL (8-23); Calcium 8.8 mg/dL (8.6-10.3); Carbon Dioxide 23 mEq/L (23-29); Chloride 101 mEq/L (98-107); Glucose 181 mg/dL (70-105); Osmolality,Calculated 279 (280-300); Potassium 4.9 mEq/L (3.5-5.1); Sodium 130 mEq/L (136-145); eGFR For African Americans > 60 (> 60); eGFR For Non-African Americans > 60 (> 60)
[2019-05-10] MEDS: Topiramate 25 MG TABLET PO SCH ×2 (07:57→21:38)
[2019-05-10] MEDS: Metoprolol 100 MG TABLET PO SCH ×2 (07:58→21:39)
[2019-05-10] MEDS: Gabapentin 300 MG CAPSULE PO SCH ×3 (07:58→21:39)
[2019-05-10] MEDS: (Diclofenac Sodium 1 APPL) TP SCH ×2 (07:59→21:42)
[2019-05-10] MEDS: Fluticasone Propionate Nasal 50 MCG/SPRAY BOTTLE NS SCH (08:02)
[2019-05-10] MEDS: Artificial Tears SOLN 15 ML BOTTLE BOTH EYES SCH ×2 (08:02→21:41)
[2019-05-10] MEDS: Insulin LISPRO 300 UNITS/3 ML VIAL SQ SCH ×4 (08:04→21:40)
[2019-05-10] MEDS: Doxycycline 100 MG CAPSULE PO SCH ×2 (09:31→21:38)
[2019-05-10] MEDS: Aspirin Enteric Coated 81 MG Tablet PO SCH (09:31)
[2019-05-10] MEDS: Ketorolac 30 MG/ML VIAL IVP PRN (09:40)
--- NOTE | 2019-05-10 11:24 | Electrocardiograph Report ---
[address] [address] Test Date: 2019-05-10 Pat Name: Liam Mathis Department: 111 Room: [facility] Gender: F Report Clerk: Pascale : 1955 Requested By: Walter Moody Order Number: [id number] Reading MD: Maria D Myers Measurements Intervals [place] Rate: 69 P: 42 GA: 164 QRS: 30 QRSD: 88 T: 57 QT: 384 QTc: 404 Interpretive Statements SINUS RHYTHM Electronically Signed On 05-10-2019 11:22:04 EDT by Maria D Myers
[2019-05-10] MEDS: *HR* HYDROcodone/Acet 5/325 mg TABLET PO PRN ×2 (12:10→21:38)
--- NOTE | 2019-05-10 14:02 | Internal Med Progress Note ---
<Walter Moody - Last Filed: 05/10/19 14:00> Hospitalist Progress Note - Encounter Date of Encounter: 05/10/19 Time of Encounter: 08:20 - Subjective Interval History: When seen today, patient was complaining of a moderate headache. She denied any vision changes. Denied any numbness or tingling. Denied any focal weakness. Denied any nausea or vomiting. She admitted to some back pain in her left shoulder. Denied any fever. - Exam Vitals: Temp Pulse Resp BP Pulse Ox 97.8 F 82 19 214/95 95 05/10/19 04:33 05/10/19 08:00 05/10/19 08:00 05/10/19 08:00 05/10/19 08:00 Exam: GENERAL APPEARANCE: Well developed, well nourished, alert and cooperative, and appears to be in no acute distress. HEAD: normocephalic. EYES: PERRL, EOMI. Fundi normal, vision is grossly intact. EARS: External auditory canals and tympanic membranes clear, hearing grossly intact. NOSE: No nasal discharge. THROAT: Oral cavity and pharynx normal. No inflammation, swelling, exudate, or lesions. NECK: Neck supple, non-tender without lymphadenopathy, masses or thyromegaly. CARDIAC: Normal S1 and S2. No S3, S4 or murmurs. Rhythm is regular. There is no peripheral edema, cyanosis or pallor. Extremities are warm and well perfused. Capillary refill is less than 2 seconds. No carotid bruits. LUNGS: Clear to auscultation and percussion without rales, rhonchi, wheezing or diminished breath sounds. ABDOMEN: Positive bowel sounds. Soft, nondistended. Mild subjective diffuse tenderness with palpation. No guarding or rebound. No masses. BACK: Mild tenderness bilaterally with spinal and paraspinal palpation. MSK: 5/5 strength in the UE and LE b/l. EXTREMITIES: No significant deformity or joint abnormality. No edema. Peripheral pulses intact. No varicosities. LOWER EXTREMITY: Examination of both feet reveals all toes to be normal in size and symmetry, normal range of motion, normal sensation with distal capillary filling of less than 2 seconds without tenderness, swelling, discoloration, nodules, weakness or deformity. NEUROLOGICAL: Sensations intact and symmetrical b/l. 5/5 strength in the UE and LE. SKIN: Skin normal color, texture and turgor with no lesions or eruptions. PSYCHIATRIC: The mental examination revealed the patient was oriented to person, place, and time. - Assessment and Plan (1) Hyponatremia Current Visit: Yes Status: Acute Assessment and Plan: Presented to the ED with nausea, vomiting, and diarrhea and found to be hyponatremic. Sodium value of 119 on arrival. Did not display any neurologic symptoms upon arrival. CT of the head was negative for any acute intracranial abnormality. She does have issues of chronic hyponatremia. This was likely an exacerbation of her chronic hyponatremia secondary to volume depletion due to nausea, vomiting, diarrhea, and poor by mouth intake. Today patient's sodium level is at 130 and stable. Plan: - Continue to monitor. (2) Migraine Current Visit: Yes Status: Chronic Assessment and Plan: Patient has a history of chronic migraines. She does take sumatriptan at home however she says that she has been getting an adverse reaction from it in the form of heart palpitations. Her migraine has been intractable for the past 6 days. Is associated with photophobia and phonophobia along with nausea and vomiting. Patient was given a dose of Depakote yesterday which did not seem to help. She was subsequently started on Topamax as of yesterday. Today she says the Topamax has not been helping much. Earlier this morning she had an elevated BP of 214/95. She says that she gets episodic peaks in her blood pressure chronically. After blood pressure medications were given patient's systolic blood pressure went down to the 150s. Patient denied any neurologic symptoms on exam today. Plan: - C/W topomax. - Workup for pheochromocytoma, carcinoid syndrome, and adrenal disease. - C/W flexeril. - C/W actaminophen and Fioricet. (3) Intermittent hypertension Current Visit: Yes Status: Acute Assessment and Plan: Complaining of drastic rises in blood pressure intermittently at home. This morning patient's blood pressure tony to 214/95. She denied any diaphoresis or facial flushing. Denied any chest pain or shortness of breath. Denied any vision changes. Denied any palpitations. Denied any abdominal pain. Does admit to chronic issues of diarrhea. Plan: - Workup for pheochromocytoma, and renal disease, and carcinoid syndrome. (4) Type 2 diabetes mellitus Current Visit: No Status: Acute Assessment and Plan: Blood glucose levels have been controlled. Plan: - Continue with low-dose sliding scale. (5) CAD (coronary artery disease) Current Visit: No Status: Chronic Assessment and Plan: Continue with JULIA inhibitor, beta angie, and aspirin. (6) Tick bite Current Visit: Yes Status: Acute Assessment and Plan: Patient reports probable tick bite on her L breast. On day #3 of doxycycline. Plan: - Switch to PO doxycycline. Plan for total 10-day course. (7) Tobacco abuse Current Visit: Yes Status: Chronic Assessment and Plan: Cessation counseling (8) Nausea and vomiting Current Visit: Yes Status: Resolved Assessment and Plan: Still has some nausea but vomiting has resolved. (9) Diarrhea Current Visit: Yes Status: Resolved Assessment and Plan: Has resolved for the most part. DVT Prophylaxis: - Heparin SQ. - Time Spent with Patient Total time spent is greater than 50% in coordination of care (as documented) at patient's floor/unit and/or counseling patient: Internal Medicine: Result - Labs CBC & Chem 7: 05/10/19 06:04 05/10/19 06:04 Labs: Short CBC 05/10/19 Range/Units 06:04 WBC 6.1 (4.3-11.1) K/mcL Hgb 10.0 L (11.5-15.4) g/dL Hct 30.3 L (35.3-44.9) % Plt Count 398 (140-400) K/mcL BMP 05/10/19 06:04 Sodium 130 L Potassium 4.9 Chloride 101 Carbon Dioxide 23 BUN 26 H Creatinine 0.88 Glucose 181 H Calcium 8.8 Consult Discharge Plan - Plan Referrals: Adalid Scott DO [Primary Care Provider] - <Garrett Mcclain - Last Filed: 05/10/19 15:33> Hospitalist Progress Note - Encounter Date of Encounter: 05/10/19 - Exam Vitals: Temp Pulse Resp BP Pulse Ox 97.8 F 82 19 214/95 95 05/10/19 04:33 05/10/19 08:00 05/10/19 08:00 05/10/19 08:00 05/10/19 08:00 - Assessment and Plan (1) Hyponatremia Current Visit: Yes Status: Acute (2) Migraine Current Visit: Yes Status: Chronic (3) Diabetes Current Visit: No Status: Chronic (4) HTN (hypertension) Current Visit: Yes Status: Chronic (5) CAD (coronary artery disease) Current Visit: No Status: Chronic (6) Tick bite Current Visit: Yes Status: Acute (7) Tobacco abuse Current Visit: Yes Status: Chronic (8) Nausea and vomiting Current Visit: Yes Status: Resolved (9) Diarrhea Current Visit: Yes Status: Resolved - Time Spent with Patient Total time spent is greater than 50% in coordination of care (as documented) at patient's floor/unit and/or counseling patient: Internal Medicine: Result - Labs CBC & Chem 7: 05/10/19 06:04 05/10/19 06:04 Labs: Short CBC 05/10/19 Range/Units 06:04 WBC 6.1 (4.3-11.1) K/mcL Hgb 10.0 L (11.5-15.4) g/dL Hct 30.3 L (35.3-44.9) % Plt Count 398 (140-400) K/mcL BMP 05/10/19 06:04 Sodium 130 L Potassium 4.9 Chloride 101 Carbon Dioxide 23 BUN 26 H Creatinine 0.88 Glucose 181 H Calcium 8.8 - Attending Attestation I examined this patient and my medical decision-making was reviewed with the Erasto nesbitt Physician on 05/10/19. I agree with the documented findings, disposition and treatment plan as described except to the extent set forth below. Ms Mathis is currently admitted for hyponatremia and headache. She remains moderate to high risk. Ms Mathis still has headache. Her BP was markedly elevated this AM but then improved. She says this happens a lot at home - BP spikes up and then goes down. SBP was 247 when she had stroke. ? if has CP or SOB. No abd pain. Intermittent diarrhea. Exam stable at this time. Will do work up for secondary causes of HTN. Awaiting PT rec. 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 transplanted heart: [place] heart Associated angina: without angina Qualified Code(s): I25.10 - Atherosclerotic heart disease of [place] coronary artery without angina pectoris (6) Tick bite Qualifiers: Encounter type: subsequent encounter Qualified Code(s): W57.XXXD - Bitten or stung by nonvenomous insect and other nonvenomous arthropods, subsequent encou nter (8) Nausea and vomiting Qualifiers: Vomiting type: unspecified Vomiting Intractability: non-intractable Qualified Code(s): R11.2 - Nausea with vomiting, unspecified (9) Diarrhea Qualifiers: Diarrhea type: unspecified type Qualified Code(s): R19.7 - Diarrhea, unspecified <Garrett Mcclain - Last Filed: 05/10/19 15:33> (2) Migraine Qualifiers: Migraine type: chronic without aura Status migrainosus presence: with status migrainosus Intractability: intractable Qualified Code(s): G43.711 - Chronic migraine without aura, intractable, with status migrainosus (3) Diabetes Qualifiers: Diabetes mellitus type: type 2 Diabetes mellitus termite technician insulin use: with assisted use Diabetes mellitus complication status: without complication Qu alified Code(s): E11.9 - Type 2 diabetes mellitus without complications; Z79.4 - [place] (current) use of insulin (4) HTN (hypertension) Qualifiers: Hypertension type: essential hypertension Qualified Code(s): I10 - Essential (primary) hypertension (5) CAD (coronary artery disease) Qualifiers: Coronary Disease-Associated Artery/Lesion type: [place] artery [place] vs. transplanted heart: [place] heart Associated angina: without angina Qualified Code(s): I25.10 - Atherosclerotic heart disease of [place] coronary artery w ithout angina pectoris (6) Tick bite Qualifiers: Encounter type: subsequent encounter Qualified Code(s): W57.XXXD - Bitten or stung by nonvenomous insect and other nonvenomous arthropods, subsequent encounter (8) Nausea and vomiting Qualifiers: Vomiting type: unspecified Vomiting Intractability: non-intractable Qualified Code(s): R11.2 - Nausea with vomiting, unspecified (9) Diarrhea Qualifiers: Diarrhea type: unspecified type Qualified Code(s): R19.7 - Diarrhea, unspecified
[2019-05-10] MEDS: rOPINIRole 0.25 MG TABLET PO SCH (21:38)
[2019-05-10] MEDS: Lisinopril 20 MG TABLET PO SCH (21:39)
[2019-05-10] MEDS: Famotidine 20 MG TABLET PO SCH (21:39)
[2019-05-10] MEDS: Insulin DETEMIR 100 UNIT/ML X5UNITS SQ SCH (21:40)
[2019-05-11 02:53] LABS: Hematocrit 31.2 % (35.3-44.9); Hemoglobin 10.3 g/dL (11.5-15.4); Mean Corpuscular Hemoglobin 29.5 pg (28.0-33.3); Mean Corpuscular Volume 89.4 fL (83.0-100.0); Platelet Count 417 K/mcL (140-400); Red Blood Count 3.49 M/mcL (3.82-4.97); Red Cell Distribution Width 13.2 % (11.5-14.5); White Blood Count 7.9 K/mcL (4.3-11.1)
[2019-05-11 03:08] LABS: BUN/Creatinine Ratio 31 (6-26); Blood Urea Nitrogen 29 mg/dL (8-23); Calcium 8.9 mg/dL (8.6-10.3); Carbon Dioxide 23 mEq/L (23-29); Chloride 106 mEq/L (98-107); Glucose 131 mg/dL (70-105); Osmolality,Calculated 278 (280-300); Potassium 4.6 mEq/L (3.5-5.1); Sodium 130 mEq/L (136-145); eGFR For African Americans > 60 (> 60); eGFR For Non-African Americans 60 (> 60)
[2019-05-11] MEDS: *HR* Heparin 5,000 UNIT/ML VIAL SQ SCH ×3 (05:20→22:00)
[2019-05-11] MEDS: Insulin LISPRO 300 UNITS/3 ML VIAL SQ SCH ×4 (07:22→21:40)
[2019-05-11] MEDS: Gabapentin 300 MG CAPSULE PO SCH ×3 (08:32→20:07)
[2019-05-11] MEDS: Doxycycline 100 MG CAPSULE PO SCH ×2 (08:32→20:07)
[2019-05-11] MEDS: Metoprolol 100 MG TABLET PO SCH ×2 (08:32→20:07)
[2019-05-11] MEDS: Topiramate 25 MG TABLET PO SCH ×2 (08:32→20:07)
[2019-05-11] MEDS: Aspirin Enteric Coated 81 MG Tablet PO SCH (08:32)
[2019-05-11] MEDS: (Diclofenac Sodium 1 APPL) TP SCH ×2 (08:33→20:08)
[2019-05-11] MEDS: Fluticasone Propionate Nasal 50 MCG/SPRAY BOTTLE NS SCH (08:33)
[2019-05-11] MEDS: Artificial Tears SOLN 15 ML BOTTLE BOTH EYES SCH ×2 (08:33→20:08)
[2019-05-11] MEDS: *HR* HYDROcodone/Acet 5/325 mg TABLET PO PRN (08:38)
--- NOTE | 2019-05-11 11:06 | Internal Med Progress Note ---
Hospitalist Progress Note - Encounter Date of Encounter: 05/11/19 - Exam Vitals: Temp Pulse Resp BP Pulse Ox 97.5 F L 66 16 153/76 98 05/11/19 07:17 05/11/19 07:17 05/11/19 07:17 05/11/19 07:17 05/11/19 07:17 - Assessment and Plan (1) Hyponatremia Current Visit: Yes Status: Acute (2) Migraine Current Visit: Yes Status: Chronic (3) Intermittent hypertension Current Visit: Yes Status: Acute (4) Type 2 diabetes mellitus Current Visit: No Status: Acute (5) CAD (coronary artery disease) Current Visit: No Status: Chronic (6) Tick bite Current Visit: Yes Status: Acute (7) Tobacco abuse Current Visit: Yes Status: Chronic (8) Nausea and vomiting Current Visit: Yes Status: Resolved (9) Diarrhea Current Visit: Yes Status: Resolved - Time Spent with Patient Total time spent is greater than 50% in coordination of care (as documented) at patient's floor/unit and/or counseling patient: Internal Medicine: Result - Labs CBC & Chem 7: 05/11/19 02:28 05/11/19 02:28 Labs: Short CBC 05/11/19 Range/Units 02:28 WBC 7.9 (4.3-11.1) K/mcL Hgb 10.3 L (11.5-15.4) g/dL Hct 31.2 L (35.3-44.9) % Plt Count 417 H (140-400) K/mcL BMP 05/11/19 02:28 Sodium 130 L Potassium 4.6 Chloride 106 Carbon Dioxide 23 BUN 29 H Creatinine 0.95 Glucose 131 H Calcium 8.9 Consult Discharge Plan - Plan Referrals: Adalid Scott DO [Primary Care Provider] - (2) Migraine Qualifiers: Migraine type: chronic without aura Status migrainosus presence: with status migrainosus Intractability: intractable Qualified Code(s): G43.711 - Chronic migraine without aura, intractable, with status migrainosus (4) Type 2 diabetes mellitus Qualifiers: Diabetes mellitus longterm insulin use: without longterm use Diabetes mellitus complication status: without complication Qualified Code(s): E11.9 - Type 2 diabetes mellitus without complications (5) CAD (coronary artery disease) Qualifiers: Coronary Disease-Associated Artery/Lesion type: [place] artery [place] vs. transplanted heart: [place] heart Associated angina: without angina Qualified Code(s): I25.10 - Atherosclerotic heart disease of [place] coronary artery without angina pectoris (6) Tick bite Qualifiers: Encounter type: subsequent encounter Qualified Code(s): W57.XXXD - Bitten or stung by nonvenomous insect and other nonvenomous arthropods, subsequent encounter (8) Nausea and vomiting Qualifiers: Vomiting type: unspecified Vomiting Intractability: non-intractable Qualified Code(s): R11.2 - Nausea with vomiting, unspecified (9) Diarrhea Qualifiers: Diarrhea type: unspecified type Qualified Code(s): R19.7 - Diarrhea, unspecified
--- NOTE | 2019-05-11 13:48 | Discharge Summary ---
Orders not resulted at time of discharge: Pending orders 05/10/19 09:20 5-HIAA,Ur [place] or 24hr Routine 05/10/19 09:21 Catecholamine,Ur [place] or 24hr Routine Metanephrine,Ur [place] or 24hr Routine 05/10/19 09:22 Creatinine,Urine [UCHEM] Routine 05/10/19 09:32 Aldosterone, Blood Routine Renin, Activity Routine Date of Encounter: 05/11/19 Time of Encounter: 08:50 - Discharge Diagnosis (1) Hyponatremia Priority: Primary Status: Acute (2) Migraine Priority: Secondary Status: Chronic Qualifiers: Migraine type: chronic without aura Status migrainosus presence: with status migrainosus Intractability: intractable Qualified Code(s): G43.711 - Chronic migraine without aura, intractable, with status migrainosus (3) Intermittent hypertension Priority: Primary Status: Acute (4) Type 2 diabetes mellitus Priority: Secondary Status: Acute Qualifiers: Diabetes mellitus prison insulin use: without intermodal customer service use Diabetes mellitus complication status: without complication Qualified Code(s): E11.9 - Type 2 diabetes mellitus without complications (5) CAD (coronary artery disease) Priority: Secondary Status: Chronic Qualifiers: Coronary Disease-Associated Artery/Lesion type: [place] artery [place] vs. transplanted heart: [place] heart Associated angina: without angina Qualified Code(s): I25.10 - Atherosclerotic heart disease of [place] coronary artery without angina pectoris (6) Tick bite Priority: Primary Status: Acute Qualifiers: Encounter type: subsequent encounter Qualified Code(s): W57.XXXD - Bitten or stung by nonvenomous insect and other nonvenomous arthropods, subsequent encounter (7) Tobacco abuse Priority: Secondary Status: Chronic (8) Nausea and vomiting Priority: Secondary Status: Resolved Qualifiers: Vomiting type: unspecified Vomiting Intractability: non-intractable Qualified Code(s): R11.2 - Nausea with vomiting, unspecified (9) Diarrhea Priority: Primary Status: Resolved Qualifiers: Diarrhea type: unspecified type Qualified Code(s): R19.7 - Diarrhea, unspecified Hospital course: Ms. Mathis is a 63 year old female with past medical history stroke, migraines, type 2 diabetes, COPD, hypertension who presented to [facility] with the chief complaints of migraine, nausea, vomiting, diarrhea the presented 6 days prior to presentation. Patient also described poor PO intake. Labs at [facility] revealed hyponatremia of 119. Prior records showed a chronic history of hyponatremia with a baseline of 125. She did not exhibit any neurological deficits on exam. CTA of the head at [facility] was negative for acute intracranial abnormality. Patient was ultimately admitted for hyponatremia secondary to hypovolemia due to nausea, vomiting, and diarrhea. Patient was put on IV fluids and had her sodium levels gradually improve to 130 and has been stable at that level. Patient has also been complaining of chronic migraines that seem to gotten worse lately. This was most probably due to dehydration. Patient was started on Topamax for migraine prophylaxis. She has tried sumatriptan in the past however she knows that it makes her have heart palpitations. Patient did also mention that she had a tick bite on her left breast prior to presentation. She did not exhibit any neurologic deficits during her hospital course. She was started on course of doxycycline where she is to complete a total of 10 days of treatment. Patient also attests that she has intermittent spikes in her blood pressure. Yesterday morning patient exhibited a systolic blood pressure increase to 214. This later on improved in the afternoon after being given her blood pressure medications. Given the episodic nature of these blood pressure spikes which has been a chronic issue for her workup was ordered to rule out pheochromocytoma, carcinoid syndrome, and adrenal disease. Labs on these exams are still pending and will need to be followed up with her PCP. On examination today patient says her headaches have been at her baseline level. Denies any nausea or vomiting currently. Denies any fever. Admits to minor abdominal discomfort. Denies any cough or shortness of breath. Patient has been approved for detention facility placement today for which she will be discharged to. Patient will need to follow-up with PCP in the next 3-5 days. Patient will also need to do a repeat BMP in 3 days to revaluate sodium level. - Time Spent with Patient Total time spent providing and/or coordinating discharge services: Time spent: Greater than 30 minutes - Discharge Medications Prescriptions: New Doxycycline 100 mg PO BID 6 Days #12 capsule Topiramate [Topamax] 25 mg PO BID 30 Days #60 tablet Ondansetron ODT [Zofran ODT] 4 mg SL Q8HR PRN 3 Days #9 tab.rapdis PRN Reason: Nausea Continued Albuterol Sulfate [Albuterol Inhaler] 2 puff IH DAILY Aspirin [Lo-Dose Aspirin EC] 81 mg PO QPM Buspirone HCl [Buspar] 10 mg PO BID Cilostazol [Pletal] 100 mg PO BID Glimepiride [Amaryl] 1 mg PO BID hydrOXYzine HCl [Hydroxyzine HCl] 25 mg PO BID PRN PRN Reason: Anxiety Lisinopril [Zestril] 20 mg PO HS Metformin HCl [Glucophage] 1,000 mg PO BID Nitroglycerin [Nitrostat] 0.4 mg SL Q5M PRN PRN Reason: Chest Pain Sertraline [Zoloft] 100 mg PO QAM Tizanidine HCl 4 mg PO BID Dextran 70/Hypromellose/Pf [Artificial Tears Drops] 1 drop BOTH EYES DAILY Diclofenac Sodium 1 appl TP BID PRN PRN Reason: Pain Fluticasone Propionate Nasal [Flonase] 2 spray NS QPM Metoprolol Tartrate 100 mg PO BID Clopidogrel [Plavix] 75 mg PO DAILY tablet hydroCHLOROthiazide [Hydrochlorothiazide] 25 mg PO QAM HYDROcodone/Acet 5/325 mg [[place] 5-325 mg] 1 tab PO Q4H PRN MDD 6 PRN Reason: Pain Acetaminophen/Butalbital/Caffe [Fioricet] 1 tab PO DAILY PRN PRN Reason: Migraine Headache Albuterol Neb [Proventil Neb] 2.5 mg PO DAILY Gabapentin 600 mg PO TID Insulin Glargine,Hum.rec.anlog [Basaglar Kwikpen U-100] 20 units SQ HS Meclizine HCl [Verticalm] 25 mg PO DAILY PRN PRN Reason: Nausea Montelukast [Singulair] 10 mg PO DAILY Ranitidine HCl [Zantac] 300 mg PO HS Ropinirole HCl [Requip] 0.5 mg PO HS Discontinued Cilostazol 50 mg PO BID Sulfamethoxazole/Trimeth DS [Bactrim Ds] 1 tab PO BID Home Medications: Albuterol Sulfate [Albuterol Inhaler] 2 puff IH DAILY 02/24/17 [History] Aspirin [Lo-Dose Aspirin EC] 81 mg PO QPM 02/24/17 [History] Buspirone HCl [Buspar] 10 mg PO BID 02/24/17 [History] Cilostazol [Pletal] 100 mg PO BID 02/24/17 [History] Glimepiride [Amaryl] 1 mg PO BID 02/24/17 [History] Lisinopril [Zestril] 20 mg PO HS 02/24/17 [History] Metformin HCl [Glucophage] 1,000 mg PO BID 02/24/17 [History] Nitroglycerin [Nitrostat] 0.4 mg SL Q5M PRN 02/24/17 [History] Sertraline [Zoloft] 100 mg PO QAM 02/24/17 [History] Tizanidine HCl 4 mg PO BID 02/24/17 [History] hydrOXYzine HCl [Hydroxyzine HCl] 25 mg PO BID PRN 02/24/17 [History] Dextran 70/Hypromellose/Pf [Artificial Tears Drops] 1 drop BOTH EYES DAILY 12/10/18 [History] Diclofenac Sodium 1 appl TP BID PRN 12/11/18 [History] Fluticasone Propionate Nasal [Flonase] 2 spray NS QPM 12/11/18 [History] Metoprolol Tartrate 100 mg PO BID 12/11/18 [History] Clopidogrel [Plavix] 75 mg PO DAILY tablet 12/15/18 [Rx] HYDROcodone/Acet 5/325 mg [[place] 5-325 mg] 1 tab PO Q4H PRN MDD 6 05/07/19 [History] hydroCHLOROthiazide [Hydrochlorothiazide] 25 mg PO QAM 05/07/19 [History] Acetaminophen/Butalbital/Caffe [Fioricet] 1 tab PO DAILY PRN 05/08/19 [History] Albuterol Neb [Proventil Neb] 2.5 mg PO DAILY 05/08/19 [History] Gabapentin 600 mg PO TID 05/08/19 [History] Insulin Glargine,Hum.rec.anlog [Basaglar Kwikpen U-100] 20 units SQ HS 05/08/19 [History] Meclizine HCl [Verticalm] 25 mg PO DAILY PRN 05/08/19 [History] Montelukast [Singulair] 10 mg PO DAILY 05/08/19 [History] Ranitidine HCl [Zantac] 300 mg PO HS 05/08/19 [History] Ropinirole HCl [Requip] 0.5 mg PO HS 05/08/19 [History] Doxycycline 100 mg PO BID 6 Days #12 capsule 05/11/19 [Rx] Ondansetron ODT [Zofran ODT] 4 mg SL Q8HR PRN 3 Days #9 tab.rapdis 05/11/19 [Rx] Topiramate [Topamax] 25 mg PO BID 30 Days #60 tablet 05/11/19 [Rx] Allergies/Adverse Reactions: Allergy/AdvReac Type Severity Reaction Status Date / Time Amoxicillin [From Augmentin] AdvReac "INSTANT Verified 05/08/19 15:49 DIARRHEA" clavulanic acid AdvReac "INSTANT Verified 05/08/19 15:49 [From Augmentin] DIARRHEA" latex AdvReac "EATS MY Verified 05/08/19 15:49 SKIN UP, RASH" Date of admission: 05/07/19 20:21 Primary care physician: Adalid Scott DO Consults: 05/09/19 09:27 PT [Consult to Physical Therapy] [CONS] Routine Comment: Evaluate, develop and implement POC Reason for Consult: Headache and unsteady gait per patient Does patient have active BEDREST order?: No Is patient medically & hemodynamically stable?: Yes Patient assessed for mobility or mobilized this visit?: Yes 05/10/19 15:21 Consult to Occupational Therapy [CONS] Routine Comment: Evaluate, develop and implement POC Reason for Consult: PT rec SNF. Patient agreeable. Will also need OT for insurance auth. Does patient have active BEDREST order?: No Is patient medically & hemodynamically stable?: Yes Discharging clinician: Walter Moody Anticipated date of discharge: 05/11/19 - Constitutional Vitals: Temp Pulse Resp BP Pulse Ox 97.5 F L 66 16 153/76 98 05/11/19 07:17 05/11/19 07:17 05/11/19 07:17 05/11/19 07:17 05/11/19 07:17 General appearance: Present: A&O X 3, no acute distress, answers questions appropriately Exam: GENERAL APPEARANCE: Well developed, well nourished, alert and cooperative, and appears to be in no acute distress. HEAD: normocephalic. EYES: PERRL, EOMI. Fundi normal, vision is grossly intact. EARS: External auditory canals and tympanic membranes clear, hearing grossly intact. NOSE: No nasal discharge. THROAT: Oral cavity and pharynx normal. No inflammation, swelling, exudate, or lesions. NECK: Neck supple, non-tender without lymphadenopathy, masses or thyromegaly. CARDIAC: Normal S1 and S2. No S3, S4 or murmurs. Rhythm is regular. There is no peripheral edema, cyanosis or pallor. Extremities are warm and well perfused. Capillary refill is less than 2 seconds. No carotid bruits. LUNGS: Clear to auscultation and percussion without rales, rhonchi, wheezing or diminished breath sounds. ABDOMEN: Positive bowel sounds. Soft, nondistended. Mild subjective diffuse tenderness with palpation. No guarding or rebound. No masses. BACK: Mild tenderness bilaterally with spinal and paraspinal palpation. MSK: 5/5 strength in the UE and LE b/l. EXTREMITIES: No significant deformity or joint abnormality. No edema. Peripheral pulses intact. No varicosities. LOWER EXTREMITY: Examination of both feet reveals all toes to be normal in size and symmetry, normal range of motion, normal sensation with distal capillary filling of less than 2 seconds without tenderness, swelling, discoloration, nodules, weakness or deformity. NEUROLOGICAL: Sensations intact and symmetrical b/l. 5/5 strength in the UE and LE. SKIN: Skin normal color, texture and turgor with no lesions or eruptions. PSYCHIATRIC: The mental examination revealed the patient was oriented to person, place, and time. - Patient Status Disposition: Transfer SNF Condition: Fair Overall status at discharge: patient is progressing back to baseline - Discharge Instructions Instructions: Chronic Hypertension (DC) Follow Up With: Adalid Scott DO [Primary Care Provider] - - Diet and Activity Activity: as per physical therapy Diet: low salt diet
--- NOTE | 2019-05-11 14:01 | Physician Discharge Referral ---
ExtendedCare Referral Info Transfer To: [facility] Provider in Charge after Transfer: PCP Institutional Level of Care: Skilled - Diagnosis (1) Hyponatremia Priority: Primary Status: Acute (2) Migraine Priority: Primary Status: Chronic (3) Intermittent hypertension Priority: Primary Status: Acute (4) Type 2 diabetes mellitus Priority: Secondary Status: Acute (5) CAD (coronary artery disease) Priority: Secondary Status: Chronic (6) Tick bite Priority: Primary Status: Acute (7) Tobacco abuse Priority: Secondary Status: Chronic (8) Nausea and vomiting Priority: Primary Status: Resolved (9) Diarrhea Priority: Secondary Status: Resolved - Transfer Medications Prescriptions: Doxycycline 100 mg PO BID 6 Days #12 capsule Topiramate [Topamax] 25 mg PO BID 30 Days #60 tablet Ondansetron ODT [Zofran ODT] 4 mg SL Q8HR PRN 3 Days #9 tab.rapdis PRN Reason: Nausea Home Medications: Albuterol Sulfate [Albuterol Inhaler] 2 puff IH DAILY 02/24/17 [History] Aspirin [Lo-Dose Aspirin EC] 81 mg PO QPM 02/24/17 [History] Buspirone HCl [Buspar] 10 mg PO BID 02/24/17 [History] Cilostazol [Pletal] 100 mg PO BID 02/24/17 [History] Glimepiride [Amaryl] 1 mg PO BID 02/24/17 [History] Lisinopril [Zestril] 20 mg PO HS 02/24/17 [History] Metformin HCl [Glucophage] 1,000 mg PO BID 02/24/17 [History] Nitroglycerin [Nitrostat] 0.4 mg SL Q5M PRN 02/24/17 [History] Sertraline [Zoloft] 100 mg PO QAM 02/24/17 [History] Tizanidine HCl 4 mg PO BID 02/24/17 [History] hydrOXYzine HCl [Hydroxyzine HCl] 25 mg PO BID PRN 02/24/17 [History] Dextran 70/Hypromellose/Pf [Artificial Tears Drops] 1 drop BOTH EYES DAILY 12/10/18 [History] Diclofenac Sodium 1 appl TP BID PRN 12/11/18 [History] Fluticasone Propionate Nasal [Flonase] 2 spray NS QPM 12/11/18 [History] Metoprolol Tartrate 100 mg PO BID 12/11/18 [History] Clopidogrel [Plavix] 75 mg PO DAILY tablet 12/15/18 [Rx] HYDROcodone/Acet 5/325 mg [[place] 5-325 mg] 1 tab PO Q4H PRN MDD 6 05/07/19 [History] hydroCHLOROthiazide [Hydrochlorothiazide] 25 mg PO QAM 05/07/19 [History] Acetaminophen/Butalbital/Caffe [Fioricet] 1 tab PO DAILY PRN 05/08/19 [History] Albuterol Neb [Proventil Neb] 2.5 mg PO DAILY 05/08/19 [History] Gabapentin 600 mg PO TID 05/08/19 [History] Insulin Glargine,Hum.rec.anlog [Basaglar Kwikpen U-100] 20 units SQ HS 05/08/19 [History] Meclizine HCl [Verticalm] 25 mg PO DAILY PRN 05/08/19 [History] Montelukast [Singulair] 10 mg PO DAILY 05/08/19 [History] Ranitidine HCl [Zantac] 300 mg PO HS 05/08/19 [History] Ropinirole HCl [Requip] 0.5 mg PO HS 05/08/19 [History] Doxycycline 100 mg PO BID 6 Days #12 capsule 05/11/19 [Rx] Ondansetron ODT [Zofran ODT] 4 mg SL Q8HR PRN 3 Days #9 tab.rapdis 05/11/19 [Rx] Topiramate [Topamax] 25 mg PO BID 30 Days #60 tablet 05/11/19 [Rx] Allergies/Adverse Reactions: Allergy/AdvReac Type Severity Reaction Status Date / Time Amoxicillin [From Augmentin] AdvReac "INSTANT Verified 05/08/19 15:49 DIARRHEA" clavulanic acid AdvReac "INSTANT Verified 05/08/19 15:49 [From Augmentin] DIARRHEA" latex AdvReac "EATS MY Verified 05/08/19 15:49 SKIN UP, RASH" - Respiratory Orders Smoking Cessation: Smoking cessation has been advised. For more information, call the [place] Tobacco Quit Line at 2-773-UFPS-NOW. - Ancillary Orders May use pressure relief devices daily prn, May go on KATIA w/family/respon libertarian w/meds at nurse discretion PRN, May consult with Dentist, Dialysis Chief Equipment Technician, Pelt Dropper PRN - Advance Directives Code Status: Full Code - Mobility Orders Ambulate - Rehabiliation Orders Rehab Orders: Evaluation for Physical Therapy, Evaluation for Occupational Therapy - Treatments Skin tear care topically daily PRN per policy, May check for fecal impaction rectally daily PRN, Fleet enema rectally every other day PRN cleansing purposes - Diet Orders Cardiac CERTIFICATION: I certify that the transfer of the above named patient to an Extended Care Facility is necessary for the continuing treatment of the diagnosis listed. The above information is true and accurate reflection of patient's current condition. Confidential - Redisclosure prohibited without a patient's written consent.
[2019-05-11] MEDS ORDERED: Orphenadrine 60 MG/2 ML VIAL IVP ONE (15:09)
--- NOTE | 2019-05-11 16:42 | Event Note ---
Date of Encounter: 05/11/19 Time of Encounter: 14:42 Patient c/o nausea and vomiting. Went to assess at bedside. Patient says she threw up a small amount of emesis. This was unwitnessed as nurse said she didn't see her throwing up and I went to check the trash can where she said she threw up but couldn't see anything. Patient said that her HERRERA had increased from a 9/10 to a 10/10. She denied any focal weakness. Upon examination, her neuro exam was grossly normal. Patient was also c/o dizziness, especially with quick movements of her head. [place]-hallpike test was positive on the R side. Performed the Lilian maneuver and patient reported some improvement. She describes what seems to be tension-type HERRERA given it is b/l and she is having back muscle spasms. Gave her a one time dose of IV Norflex. If patient continues to have increasing HERRERA, please perform neuro assessment. Might need neuro consult if continues to get worse.
[2019-05-11] MEDS: rOPINIRole 0.25 MG TABLET PO SCH (20:06)
[2019-05-11] MEDS: Lisinopril 20 MG TABLET PO SCH (20:07)
[2019-05-11] MEDS: Famotidine 20 MG TABLET PO SCH (20:08)
[2019-05-11] MEDS: Insulin DETEMIR 100 UNIT/ML X5UNITS SQ SCH (21:41)
[2019-05-12] MEDS: *HR* Heparin 5,000 UNIT/ML VIAL SQ SCH ×3 (06:05→21:06)
[2019-05-12] MEDS: *HR* HYDROcodone/Acet 5/325 mg TABLET PO PRN ×2 (08:15→11:58)
[2019-05-12] MEDS: Topiramate 25 MG TABLET PO SCH ×2 (08:16→21:06)
[2019-05-12] MEDS: Aspirin Enteric Coated 81 MG Tablet PO SCH (08:16)
[2019-05-12] MEDS: Gabapentin 300 MG CAPSULE PO SCH ×3 (08:16→21:06)
[2019-05-12] MEDS: Metoprolol 100 MG TABLET PO SCH ×2 (08:16→21:06)
[2019-05-12] MEDS: Insulin LISPRO 300 UNITS/3 ML VIAL SQ SCH ×4 (08:18→21:12)
[2019-05-12] MEDS: Doxycycline 100 MG CAPSULE PO SCH ×2 (08:26→21:06)
[2019-05-12] MEDS: Artificial Tears SOLN 15 ML BOTTLE BOTH EYES SCH ×2 (08:29→21:12)
[2019-05-12] MEDS: Fluticasone Propionate Nasal 50 MCG/SPRAY BOTTLE NS SCH (08:29)
[2019-05-12] MEDS: (Diclofenac Sodium 1 APPL) TP SCH ×2 (09:51→21:07)
--- NOTE | 2019-05-12 12:29 | Internal Med Progress Note ---
Hospitalist Progress Note - Encounter Date of Encounter: 05/12/19 Time of Encounter: 12:26 - Subjective Interval History: Patient seen and examined at bedside. Patient reports continued persistent headache. She states nothing is making headache better. She reports double vision as well. She reports the headache is posterior been present ever since a dmission and for 6 days prior. She reports associated nausea and vomiting. - Exam Vitals: Temp Pulse Resp BP Pulse Ox 98.1 F 67 15 145/70 98 05/12/19 08:04 05/12/19 08:04 05/12/19 08:04 05/12/19 08:04 05/12/19 08:04 Exam: Gen.: Alert and oriented 3, no acute distress Heart: Regular rate and rhythm, no murmurs, gallops Lungs: Clear to auscultation bilaterally, no rales wheezes Neuro: 5 out of 5 strength throughout, PERRLA, no focal deficits appreciated. - Assessment and Plan (1) Migraine Current Visit: Yes Status: Chronic Assessment and Plan: Patient continues to have significant headache that is unrelenting despite multiple medical therapy options. We will obtain CT of the head and consult neurology. (2) Hyponatremia Current Visit: Yes Status: Acute Assessment and Plan: Resolved at this time. (3) CAD (coronary artery disease) Current Visit: No Status: Chronic Assessment and Plan: Chronic issue. No symptoms now. Chest pain-free at this time. (4) HTN (hypertension) Current Visit: Yes Status: Chronic Assessment and Plan: Blood pressure was elevated last night but has much improved this morning. We will add hydralazine 10 milligrams IV every 6 when necessary for systolic blood pressure greater than 170. (5) Diabetes Current Visit: No Status: Chronic Assessment and Plan: Blood sugars under adequate control at this time. Continue current insulin regimen and continue monitor blood sugars. (6) Tick bite Current Visit: Yes Status: Acute Assessment and Plan: Pt reports probable tick bite on her L breast. Was treated with sulfa. Has been transition to by mouth doxycycline. (7) Tobacco abuse Current Visit: Yes Status: Chronic - Time Spent with Patient Total time spent is greater than 50% in coordination of care (as documented) at patient's floor/unit and/or counseling patient: Internal Medicine: Result - Labs CBC & Chem 7: 05/11/19 02:28 05/11/19 02:28 Consult Discharge Plan - Plan Instructions: Chronic Hypertension (DC) Referrals: Adalid Scott DO [Primary Care Provider] - Prescriptions: Doxycycline 100 mg PO BID 6 Days #12 capsule Topiramate [Topamax] 25 mg PO BID 30 Days #60 tablet Ondansetron ODT [Zofran ODT] 4 mg SL Q8HR PRN 3 Days #9 tab.rapdis PRN Reason: Nausea _ (1) Migraine Qualifiers: Migraine type: chronic without aura Status migrainosus presence: with status migrainosus Intractability: intractable Qualified Code(s): G43.711 - Chronic migraine without aura, intractable, with status migrainosus (3) CAD (coronary artery disease) Qualifiers: Coronary Disease-Associated Artery/Lesion type: [place] artery [place] vs. transplanted heart: [place] heart Associated angina: without angina Qualified Code(s): I25.10 - Atherosclerotic heart disease of [place] coronary artery without angina pectoris (4) HTN (hypertension) Qualifiers: Hypertension type: essential hypertension Qualified Code(s): I10 - Essential (primary) hypertension (5) Diabetes Qualifiers: Diabetes mellitus type: type 2 Diabetes mellitus group home insulin use: with terminal press operator use Diabetes mellitus complication status: without complication Qualified Code(s): E11.9 - Type 2 diabetes mellitus without complications; Z79.4 - retirement (current) use of insulin (6) Tick bite Qualifiers: Encounter type: subsequent encounter Qualified Code(s): W57.XXXD - Bitten or stung by nonvenomous insect and other nonvenomous arthropods, subsequent enco unter
--- NOTE | 2019-05-12 14:14 | Neurology - Consult Note ---
<Gregorio Harris J - Last Filed: 05/12/19 16:19> Date of Encounter: 05/12/19 Time of Encounter: 14:02 Assessment and Plan (1) Headache Current Visit: No Status: Acute Neurology consulted for recommendations regarding unremitting headache Headache onset approximately 6 days prior to admission Reports a tick bite prior to h/a onset. After tick bite she experienced subjective fevers and chills, h/a, n/v/d, neck pain and stiffness. Has h/o migraines but current headaches are atypical of her migraines Vitals review reveals episodes of HTN urgency CT head shows no acute abnormality CTA head and neck in 11/2018 shows an occluded left vertebral artery but otherwise no flow-limiting stenosis and at her neck. Seen and examined at the bedside this afternoon. Neuro exam is nonfocal and nonlateralizing however, she is reporting left eye monocular diplopia but this was not appreciated on exam. Reports headache is throbbing and located in the left occipital lobe and unremitting scoring a 6/10 on a pain scale. She states that she has phonophobia and photophobia however, when I went in to evaluate her this afternoon her lights were on, her TV was loud and she was playing on her cell phone which does seem to be bothering her. Her pain seemed out of proportion to exam. She reports that she has refused migraine abortives. She has trialed muscle relaxers without relief. She notes that the only thing that improves her headache is [place]. Consider an atypical migraine etiology vs perhaps a h/a exacerbated by her hypertensive episodes or some combination thereof. Plan: C/W Topiramate D/C [place] D/C cyclobenzaprine Rec Strict BP control Start Zanaflex 4mg PO JOSE LUIS QHS Solumedrol IVP 60mg Q12HR Benadryl 25mg PO Q12HR Decrease Gabapentin to 300mg BID Qualifiers: Headache type: unspecified Headache chronicity pattern: acute headache Intractability: not intractable Qualified Code(s): R51 - Headache History of Present Illness Chief complaint: persistent cephalgia HPI: Ms. Mathis is a 63 year old female with a PMH of stroke, migraines (takes topamax), DM 2, HTN. She presented to [facility] with a left posterior cephalgic Headache. She reports that the headache is atypical of her normal migraine pattern and reports it as throbbing with associated photophobia and phonophobia with a pain score of 6/10 this afternoon. Review of the note reveals that the headaches began shortly after a 6 day of nausea, vomiting and diarrhea. She has not had any relief since onset. She is reporting intermittent episodes of nausea and vomiting as well and notes that her blood pressure has been very high on multiple occasions throughout this admission. She admist to associatedt monocular diplopia and with a diagonal pattern and she is having posterior neck pain worsened by range of motion as well. She denies any focal weakness, dysphagia, dysarthria or paresthesias. Since admission she has been trial on Norflex, [place], Toradol, cyclobenzaprine and Fioricet and reports only minimal relief with [place] only. She has refused a migraine cocktail. Neurology has been c/s for recommendations given ongoing headaches. A CT of the head was completed and found no acute process, finding only mild small vessel ischemic changes. I reviewed the CTA of the head and neck from November 2018 which showed an occluded left vertebral artery but otherwise no flow-limiting stenosis or branch occlusion detected within the head or neck. Past Med Surg Social Fam HX - Past Medical History Medical history: CVA, diabetes, hypertension Additional medical history: anxiety disorder. htn. nicotine addiction. bipolar disorder. hip arthritis. diabetes mellitus. PAD. COPD. DVT. latex allergy Psychiatric history: anxiety, panic disorder - Past Surgical History Surgical History: appendectomy, , LE bypass Additional surgical history: eye surgery - Social History Smoking Status: Current every day smoker Packs per day: 1/4 Smokeless Tobacco Status: No Alcohol use: none Drug use: none - Family History Father Hx Family Cancer: No Hx Family Endocrine Disorder: Yes (Diabetes) Mother Hx Family Cancer: No Hx Family Endocrine Disorder: No Medications and Allergies Albuterol Sulfate [Albuterol Inhaler] 2 puff IH DAILY 02/24/17 [History] Aspirin [Lo-Dose Aspirin EC] 81 mg PO QPM 02/24/17 [History] Buspirone HCl [Buspar] 10 mg PO BID 02/24/17 [History] Cilostazol [Pletal] 100 mg PO BID 02/24/17 [History] Glimepiride [Amaryl] 1 mg PO BID 02/24/17 [History] Lisinopril [Zestril] 20 mg PO HS 02/24/17 [History] Metformin HCl [Glucophage] 1,000 mg PO BID 02/24/17 [History] Nitroglycerin [Nitrostat] 0.4 mg SL Q5M PRN 02/24/17 [History] Sertraline [Zoloft] 100 mg PO QAM 02/24/17 [History] Tizanidine HCl 4 mg PO BID 02/24/17 [History] hydrOXYzine HCl [Hydroxyzine HCl] 25 mg PO BID PRN 02/24/17 [History] Dextran 70/Hypromellose/Pf [Artificial Tears Drops] 1 drop BOTH EYES DAILY 12/10/18 [History] Diclofenac Sodium 1 appl TP BID PRN 12/11/18 [History] Fluticasone Propionate Nasal [Flonase] 2 spray NS QPM 12/11/18 [History] Metoprolol Tartrate 100 mg PO BID 12/11/18 [History] Clopidogrel [Plavix] 75 mg PO DAILY tablet 12/15/18 [Rx] HYDROcodone/Acet 5/325 mg [[place] 5-325 mg] 1 tab PO Q4H PRN MDD 6 05/07/19 [History] hydroCHLOROthiazide [Hydrochlorothiazide] 25 mg PO QAM 05/07/19 [History] Acetaminophen/Butalbital/Caffe [Fioricet] 1 tab PO DAILY PRN 05/08/19 [History] Albuterol Neb [Proventil Neb] 2.5 mg PO DAILY 05/08/19 [History] Gabapentin 600 mg PO TID 05/08/19 [History] Insulin Glargine,Hum.rec.anlog [Basaglar Kwikpen U-100] 20 units SQ HS 05/08/19 [History] Meclizine HCl [Verticalm] 25 mg PO DAILY PRN 05/08/19 [History] Montelukast [Singulair] 10 mg PO DAILY 05/08/19 [History] Ranitidine HCl [Zantac] 300 mg PO HS 05/08/19 [History] Ropinirole HCl [Requip] 0.5 mg PO HS 05/08/19 [History] Doxycycline 100 mg PO BID 6 Days #12 capsule 05/11/19 [Rx] Ondansetron ODT [Zofran ODT] 4 mg SL Q8HR PRN 3 Days #9 tab.rapdis 05/11/19 [Rx] Topiramate [Topamax] 25 mg PO BID 30 Days #60 tablet 05/11/19 [Rx] Allergy/AdvReac Type Severity Reaction Status Date / Time Amoxicillin [From Augmentin] AdvReac "INSTANT Verified 05/08/19 15:49 DIARRHEA" clavulanic acid AdvReac "INSTANT Verified 05/08/19 15:49 [From Augmentin] DIARRHEA" latex AdvReac "EATS MY Verified 05/08/19 15:49 SKIN UP, RASH" All Systems: The remainder of the systems were reviewed and are negative Review of Systems: REVIEW OF SYSTEMS GENERAL: Negative for any nausea, vomiting, fevers, chills NEUROLOGIC: Negative for any facial asymmetry, dysphagia, dysarthria, juan josé paresis, hemisensory deficits, vertigo, ataxia, seizures, paralysis, tingling, numbness, unilateral weakness or numbness/tingling Positive- headaches, monocular diplopia of the left eye but this was not evident on exam PSYCH: Positive-anxiety HEENT: Negative for any head trauma, neck trauma, neck stiffness Positive-photophobia, phonophobia CARDIAC: Negative for any chest pain, dyspnea, peripheral edema or palpitations GASTROINTESTINAL: Positive-intermittent nausea and vomiting worse with position change and worse with increasing headache MUSCULOSKELETAL: Negative-loss of strength Physical Examination - Vital Signs Vital Signs: Initial Vital Signs Temp Pulse Resp BP Pulse Ox 98.4 F 75 14 154/60 95 05/07/19 18:18 05/07/19 18:18 05/07/19 18:18 05/07/19 18:18 05/07/19 18:18 - Exam Exam: Examination: General Examination: *CONSTITUTIONAL: Alert and oriented x3, no acute distress *GENERAL APPEARANCE OF PATIENT appears healthy and well groomed *EYES: pupils equal, round, reactive to light and accommodation, conjunctiva clear without masses or ulcerations, fundi normal. *CARDIOVASCULAR no peripheral edema, distal temperature normal, dorsalis pedis pulses normal. See vitals Musculoskeletal: *GAIT AND STATION declined *ASSESSMENT OF MUSCLE STRENGTH IN THE UPPER AND LOWER EXTREMITIES bilateral deltoid, bicep, tricep, safety lead strength, hip flexors ,anterior tibialis, dorsoflexion of the foot 5/5 *MUSCLE TONE IN THE UPPER AND LOWER EXTREMITIES normal. No abnormal movements, fasciculations or atrophy identified. Neurological: *ORIENTATION to person, situation, time and place *RECURRENT AND REMOTE MEMORY intact *ATTENTION AND CONCENTRATION are normal *LANGUAGE FUNCTION no significant aphasia or dysarthia was noted. *FUND OF KNOWLEDGE aware of current events, past history, vocabulary *MENTAL attention span and concentration normal. *CN II optic fundi were normal, no papilledema noted. *CN III,IV, PERRLA extraocular eye movements were full, no nystagmus and no ptosis noted. *CN V shows normal sensation and jaw opens symmetrically. *CN VII shows normal facial movement symmetrically, upper and lower bilaterally. *CN VIII shows no significant hearing loss on exam *CN IX,,X palate elevated symmetrically *CN XI normal strength in the sternocleidomastoid muscles, symmetrical shoulder shrugging. *CN XII tongue protruded in the midline, with normal strength and movement. *SENSORY EXAMINATION light touch intact *REFLEXES: deep tendon reflexes were normal and symmetrical , grade 2/4 diffusely, no pathological reflexes were noted. *CEREBELLAR TESTING normal finger to nose, heel/knee/churchill *PAIN LEVEL 0/10 Results - Laboratory Findings CBC and BMP: 05/11/19 02:28 05/11/19 02:28 Abnormal lab findings: Abnormal lab results RBC 3.49 M/mcL (3.82-4.97) L 05/11/19 02:28 Hgb 10.3 g/dL (11.5-15.4) L 05/11/19 02:28 Hct 31.2 % (35.3-44.9) L 05/11/19 02:28 Plt Count 417 K/mcL (140-400) H 05/11/19 02:28 MPV 8.0 fL (9.4-12.4) L 05/11/19 02:28 Sodium 130 mEq/L (136-145) L 05/11/19 02:28 Chloride 96 mEq/L (98-107) L 05/08/19 04:05 Carbon Dioxide 20 mEq/L (23-29) L 05/09/19 05:44 BUN 29 mg/dL (8-23) H 05/11/19 02:28 Est GFR (Non-Af Amer) 58 (> 60) L 05/07/19 20:05 31 (6-26) H 05/11/19 02:28 Glucose 131 mg/dL (70-105) H 05/11/19 02:28 POC Glucose 327 mg/dL (70-99) H 05/12/19 11:48 278 (280-300) L 05/11/19 02:28 Calcium 8.1 mg/dL (8.6-10.3) L 05/08/19 04:05 0.1 mg/dL (0.3-1.0) L 05/07/19 20:05 AST 11 Units/L (13-39) L 05/07/19 20:05 5.5 g/dL (6.4-8.9) L 05/07/19 20:05 3.2 g/dL (3.5-5.7) L 05/07/19 20:05 2.3 g/dL (2.4-3.5) L 05/07/19 20:05 >=300 mg/dL (Neg-Trace) H 05/07/19 20:55 100 mg/dL (Normal) H 05/07/19 20:55 Trace (Negative) H 05/07/19 20:55 Ur Leukocyte Esterase Small (Negative) H 05/07/19 20:55 5-15 per hpf (0-3) H 05/07/19 20:55 5-15 per hpf (0-3) H 05/07/19 20:55 Ur Squamous Epith Cells Many per lpf (None-Few) H 05/07/19 20:55 - Diagnostic Findings Additional findings: CT/CT head/brain wo con IMPRESSION: No acute intracranial process identified. Mild chronic small vessel ischemic changes. Consult Discharge Plan - Plan Instructions: Chronic Hypertension (DC) Referrals: Adalid Scott DO [Primary Care Provider] - Prescriptions: Doxycycline 100 mg PO BID 6 Days #12 capsule Topiramate [Topamax] 25 mg PO BID 30 Days #60 tablet Ondansetron ODT [Zofran ODT] 4 mg SL Q8HR PRN 3 Days #9 tab.rapdis PRN Reason: Nausea <Sean Combs I - Last Filed: 05/12/19 16:39> Date of Encounter: 05/12/19 Assessment and Plan (1) Headache Current Visit: No Status: Acute I have personally performed a face to face diagnostic evaluation, including HPI, EXAM, which is included in the Assesment and plan, which was discussed with Gregorio Harris CNP, I agree with the above outlined documentation. This patient was been admitted with the significant headaches and generalized weakness with nausea without any sign of meningismus on current neurological examination as she is alert awake and oriented 3 her cranial nerves are all intact no focal motor neurological deficit noted in particularly no meningeal signs on clinical examination. CT scan of the head earlier was negative for any acute bleed or infarct. She did have occluded left vertebral artery on CT angiogram noted on the scan in November 2018. Considering her headaches seems to be predominantly in the left occipital area consistent with occipital neuralgia but at the same time she is also having migrainous component into it and then on the top of that narcotics are likely causing a rebound phenomenon. For this acute cephalgia recommend IV fluids along with scheduled doses of steroids 25 mg of Benadryl. Discontinue all narcotics. May use NSAIDs if needed. Scheduled doses of muscle relaxers we will start her on Zanaflex 2 mg at bedtime discontinue other muscle relaxers. Continue on gabapentin 300 mg twice a day. if there is no improvement perhaps she may benefit from occipital nerve block that could be done as an outpatient. Pt should be up in the chair, lights on, curtain off in the room, increase ambulation. Sean Combs MD. Neurology Qualifiers: Headache type: unspecified Headache chronicity pattern: acute headache In tractability: not intractable Qualified Code(s): R51 - Headache History of Present Illness HPI: Ms. Mathis is a 63 year old female All Systems: The remainder of the systems were reviewed and are negative Physical Examination - Vital Signs Vital Signs: Initial Vital Signs Temp Pulse Resp BP Pulse Ox 98.4 F 75 14 154/60 95 05/07/19 18:18 05/07/19 18:18 05/07/19 18:18 05/07/19 18:18 05/07/19 18:18 Results - Laboratory Findings CBC and BMP: 05/11/19 02:28 05/11/19 02:28 Abnormal lab findings: Abnormal lab results RBC 3.49 M/mcL (3.82-4.97) L 05/11/19 02:28 Hgb 10.3 g/dL (11.5-15.4) L 05/11/19 02:28 Hct 31.2 % (35.3-44.9) L 05/11/19 02:28 Plt Count 417 K/mcL (140-400) H 05/11/19 02:28 MPV 8.0 fL (9.4-12.4) L 05/11/19 02:28 Sodium 130 mEq/L (136-145) L 05/11/19 02:28 Chloride 96 mEq/L (98-107) L 05/08/19 04:05 Carbon Dioxide 20 mEq/L (23-29) L 05/09/19 05:44 BUN 29 mg/dL (8-23) H 05/11/19 02:28 Est GFR (Non-Af Amer) 58 (> 60) L 05/07/19 20:05 31 (6-26) H 05/11/19 02:28 Glucose 131 mg/dL (70-105) H 05/11/19 02:28 POC Glucose 327 mg/dL (70-99) H 05/12/19 11:48 278 (280-300) L 05/11/19 02:28 Calcium 8.1 mg/dL (8.6-10.3) L 05/08/19 04:05 0.1 mg/dL (0.3-1.0) L 05/07/19 20:05 AST 11 Units/L (13-39) L 05/07/19 20:05 5.5 g/dL (6.4-8.9) L 05/07/19 20:05 3.2 g/dL (3.5-5.7) L 05/07/19 20:05 2.3 g/dL (2.4-3.5) L 05/07/19 20:05 >=300 mg/dL (Neg-Trace) H 05/07/19 20:55 100 mg/dL (Normal) H 05/07/19 20:55 Trace (Negative) H 05/07/19 20:55 Ur Leukocyte Esterase Small (Negative) H 05/07/19 20:55 5-15 per hpf (0-3) H 05/07/19 20:55 5-15 per hpf (0-3) H 05/07/19 20:55 Ur Squamous Epith Cells Many per lpf (None-Few) H 05/07/19 20:55
[2019-05-12] MEDS: methylPREDNISolone 125 MG/2 ML VIAL IVP SCH (17:28)
[2019-05-12] MEDS ORDERED: tiZANidine 4 MG TABLET PO SCH (21:00)
[2019-05-12] MEDS: rOPINIRole 0.25 MG TABLET PO SCH (21:06)
[2019-05-12] MEDS: Lisinopril 20 MG TABLET PO SCH (21:06)
[2019-05-12] MEDS: Famotidine 20 MG TABLET PO SCH (21:06)
[2019-05-12] MEDS: Insulin DETEMIR 100 UNIT/ML X5UNITS SQ SCH (21:06)
[2019-05-13 03:15] LABS: Basophils % 0.2 %; Eosinophils % 0.3 %; Hematocrit 30.6 % (35.3-44.9); Immature Granulocytes % 1.5 % (0-4); Lymphocytes # 1.8 K/mcL (0.6-4.6); Lymphocytes % 20.9 %; Mean Corpuscular HGB Conc 32.7 g/dL (31.6-35.5); Mean Corpuscular Hemoglobin 29.3 pg (28.0-33.3); Mean Corpuscular Volume 89.7 fL (83.0-100.0); Monocytes # 0.2 K/mcL (0.0-1.3); Monocytes % 2.2 %; Neutrophils # 6.5 K/mcL (1.6-8.9); Platelet Count 429 K/mcL (140-400); Red Blood Count 3.41 M/mcL (3.82-4.97); Segmented Neutrophils % 74.9 %; White Blood Count 8.7 K/mcL (4.3-11.1)
[2019-05-13] MEDS: methylPREDNISolone 125 MG/2 ML VIAL IVP SCH (06:16)
[2019-05-13] MEDS: *HR* Heparin 5,000 UNIT/ML VIAL SQ SCH ×2 (06:16→17:21)
[2019-05-13 06:54] LABS: BUN/Creatinine Ratio 39 (6-26); Blood Urea Nitrogen 39 mg/dL (8-23); Carbon Dioxide 18 mEq/L (23-29); Chloride 103 mEq/L (98-107); Glucose 235 mg/dL (70-105); Magnesium 1.7 mg/dL (1.6-2.6); Osmolality,Calculated 289 (280-300); Potassium 4.7 mEq/L (3.5-5.1); Sodium 131 mEq/L (136-145); eGFR For African Americans > 60 (> 60); eGFR For Non-African Americans 56 (> 60)
--- NOTE | 2019-05-13 07:34 | Internal Med Progress Note ---
<Walter Moody - Last Filed: 05/13/19 09:57> Hospitalist Progress Note - Encounter Date of Encounter: 05/13/19 Time of Encounter: 08:40 - Subjective Interval History: When seen today patient continued to complain of intermittent headaches however notes that they have been noted baseline level. Continues to complain of minor intermittent chest pain which has been chronic issue for her. Denies any shortness of breath. She admits to some minor abdominal discomfort which has been chronic for her. Denies any fever. Denies any cough or wheezing. Denies any focal weakness. - Exam Vitals: Temp Pulse Resp BP Pulse Ox 98 F 82 12 140/60 96 05/13/19 04:38 05/13/19 04:38 05/13/19 04:38 05/13/19 04:38 05/13/19 04:38 Exam: GENERAL APPEARANCE: Well developed, well nourished, alert and cooperative, and appears to be in no acute distress. HEAD: normocephalic. EYES: vision is grossly intact. EARS: hearing grossly intact. NOSE: No nasal discharge. THROAT: Oral cavity and pharynx normal. No inflammation, swelling, exudate, or lesions. Teeth and gingiva in good general condition. NECK: Neck supple, non-tender without lymphadenopathy, masses or thyromegaly. CARDIAC: Normal S1 and S2. No S3, S4 or murmurs. Rhythm is regular. There is no peripheral edema, cyanosis or pallor. Extremities are warm and well perfused. Capillary refill is less than 2 seconds. No carotid bruits. LUNGS: Clear to auscultation and percussion without rales, rhonchi, wheezing or diminished breath sounds. ABDOMEN: Positive bowel sounds. Soft, nondistended, minor subjective tenderness with palpation. No guarding or rebound. No masses. EXTREMITIES: No significant deformity or joint abnormality. No edema. Peripheral pulses intact. No varicosities. LOWER EXTREMITY: Examination of both feet reveals all toes to be normal in size and symmetry, normal range of motion, normal sensation with distal capillary filling of less than 2 seconds without tenderness, swelling, discoloration, nodules, weakness or deformity; SKIN: Skin normal color, texture and turgor with no lesions or eruptions. PSYCHIATRIC: The mental examination revealed the patient was oriented to person, place, and time. - Assessment and Plan (1) Hyponatremia Current Visit: Yes Status: Acute Assessment and Plan: Presented to the ED with nausea, vomiting, and diarrhea and found to be hyponatremic. Sodium value of 119 on arrival. Did not display any neurologic symptoms upon arrival. CT of the head was negative for any acute intracranial abnormality. She does have issues of chronic hyponatremia. This was likely an exacerbation of her chronic hyponatremia secondary to volume depletion due to nausea, vomiting, diarrhea, and poor by mouth intake. Today patient's sodium level is at 131 and stable. Plan: - Continue to monitor. (2) Migraine Current Visit: Yes Status: Chronic Assessment and Plan: Patient has a history of chronic migraines. She does take sumatriptan at home however she says that she has been getting an adverse reaction from it in the form of heart palpitations. Her migraine has been intractable for the past 6 days. Is associated with photophobia and phonophobia along with nausea and vomiting. Patient was given a dose of Depakote which did not seem to help. Has refused abortive-type medications. She was subsequently started on Topamax. CT of the head showed no acute intracranial process. Mild chronic small vessel ischemic changes. Neurology was consulted and they describe her migraines as atypical with possible exacerbation by hypertensive episodes. Patient to be discharged to SNF today. Plan: - C/W topomax. - Workup for pheochromocytoma, carcinoid syndrome, and adrenal disease pending. Patient to f/u with PCP. - D/C flexeril. Start Zanaflex. - Start PO steroids. - Start benadryl. - Decrease dosage of gabapentin to 300 mg BID. - C/W actaminophen and Fioricet. (3) Intermittent hypertension Current Visit: Yes Status: Acute Assessment and Plan: Complaining of drastic rises in blood pressure intermittently at home. This morning patient's blood pressure tony to 214/95. She denied any diaphoresis or facial flushing. Denied any chest pain or shortness of breath. Denied any vision changes. Denied any palpitations. Denied any abdominal pain. Does admit to chronic issues of diarrhea. Plan: - Workup for pheochromocytoma, and renal disease, and carcinoid syndrome to be follow-up with PCP in outpatient. (4) Type 2 diabetes mellitus Current Visit: No Status: Acute Assessment and Plan: lood glucose levels have been controlled. Plan: - Continue with low-dose sliding scale. (5) CAD (coronary artery disease) Current Visit: No Status: Chronic Assessment and Plan: Continue with JULIA inhibitor, beta angie, and aspirin. (6) Tick bite Current Visit: Yes Status: Acute Assessment and Plan: Patient reports probable tick bite on her L breast. On day #6 of doxycycline. Lyme AB negative. Plan: - C/W PO doxycycline. Plan for total 10-day course. (7) Tobacco abuse Current Visit: Yes Status: Chronic Assessment and Plan: Cessation counseling (8) Nausea and vomiting Current Visit: Yes Status: Resolved Assessment and Plan: Still has some nausea but vomiting has resolved. (9) Diarrhea Current Visit: Yes Status: Resolved Assessment and Plan: Resolved. DVT Prophylaxis: - Heparin SQ. - Time Spent with Patient Total time spent is greater than 50% in coordination of care (as documented) at patient's floor/unit and/or counseling patient: Internal Medicine: Result - Labs CBC & Chem 7: 05/13/19 02:54 05/13/19 05:50 Labs: Short CBC 05/13/19 Range/Units 02:54 WBC 8.7 (4.3-11.1) K/mcL Hgb 10.0 L (11.5-15.4) g/dL Hct 30.6 L (35.3-44.9) % Plt Count 429 H (140-400) K/mcL Neutrophils # 6.5 (1.6-8.9) K/mcL BMP 05/13/19 05:50 Sodium 131 L Potassium 4.7 Chloride 103 Carbon Dioxide 18 L BUN 39 H Creatinine 1.01 Glucose 235 H Calcium 9.0 - Impressions Impressions Head CT 05/12/19 08:56 IMPRESSION: No acute intracranial process identified. Mild chronic small vessel ischemic changes. D/ / To Rubio MD / To Rubio MD Interpreting Provider: To Rubio MD Consult Discharge Plan - Plan Instructions: Chronic Hypertension (DC) Referrals: Adalid Scott DO [Primary Care Provider] - Prescriptions: DiphenhydraMINE [Benadryl] 25 mg PO Q12HR 30 Days #60 capsule PredniSONE [Deltasone] 60 mg PO DAILY 5 Days #15 tablet Gabapentin 300 mg PO BID 30 Days #60 tablet Metoprolol Tartrate 100 mg PO BID #60 tablet Tizanidine HCl 4 mg PO HS 30 Days #60 tablet Topiramate [Topamax] 25 mg PO BID 30 Days #60 tablet Lisinopril [Zestril] 40 mg PO HS #60 tablet Ondansetron ODT [Zofran ODT] 4 mg SL Q8HR PRN 3 Days #9 tab.rapdis PRN Reason: Nausea <Franco Chavez - Last Filed: 05/13/19 11:30> Hospitalist Progress Note - Encounter Date of Encounter: 05/13/19 - Exam Vitals: Temp Pulse Resp BP Pulse Ox 98.1 F 89 14 173/98 93 05/13/19 08:00 05/13/19 08:00 05/13/19 08:00 05/13/19 08:00 05/13/19 08:00 - Assessment and Plan (1) Migraine Current Visit: Yes Status: Chronic (2) Hyponatremia Current Visit: Yes Status: Acute (3) CAD (coronary artery disease) Current Visit: No Status: Chronic (4) HTN (hypertension) Current Visit: Yes Status: Chronic (5) Diabetes Current Visit: No Status: Chronic (6) Tick bite Current Visit: Yes Status: Acute (7) Tobacco abuse Current Visit: Yes Status: Chronic - Time Spent with Patient Total time spent is greater than 50% in coordination of care (as documented) at patient's floor/unit and/or counseling patient: Internal Medicine: Result - Labs CBC & Chem 7: 05/13/19 02:54 05/13/19 05:50 Labs: Short CBC 05/13/19 Range/Units 02:54 WBC 8.7 (4.3-11.1) K/mcL Hgb 10.0 L (11.5-15.4) g/dL Hct 30.6 L (35.3-44.9) % Plt Count 429 H (140-400) K/mcL Neutrophils # 6.5 (1.6-8.9) K/mcL BMP 05/13/19 05:50 Sodium 131 L Potassium 4.7 Chloride 103 Carbon Dioxide 18 L BUN 39 H Creatinine 1.01 Glucose 235 H Calcium 9.0 - Impressions Impressions Head CT 05/12/19 08:56 IMPRESSION: No acute intracranial process identified. Mild chronic small vessel ischemic changes. D/ / To Rubio MD / To Rubio MD Interpreting Provider: To Rubio MD - Attending Attestation I examined this patient and my medical decision-making was reviewed with the Resident Physician. I agree with the documented findings, disposition and mera tment plan as described except to the extent set forth below. Patient seen and examined at bedside. Patient states that she feels better. She reports she still has a headache but states slightly improved. Denies any nausea or vomiting. On exam she is alert and oriented 3, heart is regular rate and rhythm. On neuro exam shows 5/5 strength throughout with no focal deficits appreciated. Headache: CT head was unremarkable. Patient evaluated by neurology who feels th is may be occipital neuralgia combined with a migrainous component. Further recommendations will continue topiramate, start Zanaflex give steroid and Benadryl and discontinue [place] and Flexeril. Lyme titer negative, DC doxycycline. Hyponatremia: Remains stable today at 131 which is baseline for patient. Patient is stable for discharge to [facility]. Please refer to discharge summary dictated on 05/11 for complete discharge information. 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 transplanted heart: [place] heart Associated angina: without angina Qualified Code(s): I25.10 - Atherosclerotic heart disease of [place] coronary artery without angina pectoris (6) Tick bite Qualifiers: Encounter type: subsequent encounter Qualified Code(s): W57.XXXD - Bitten or stung by nonvenomous insect and other nonvenomous arthropods, subsequent encounter (8) Nausea and vomiting Qualifiers: Vomiting type: unspecified Vomiting Intractability: non-intractable Qualified Code(s): R11.2 - Nausea with vomiting, unspecified (9) Diarrhea Qualifiers: Diarrhea type: unspecified type Qualified Code(s): R19.7 - Diarrhea, unspecified <Franco Chavez - Last Filed: 05/13/19 11:30> (1) Migraine Qualifiers: Migraine type: chronic without aura Status migrainosus presence: with status migrainosus Intractability: intractable Qualified Code(s): G43.711 - Chronic migraine without aura, intractable, with status migrainosus (3) CAD (coronary artery disease) Qualifiers: Coronary Disease-Associated Artery/Lesion type: [place] artery [place] vs. transplanted heart: [place] heart Associated angina: without angina Qualified Code(s): I25.10 - Atherosclerotic heart disease of [place] coronary artery without angina pectoris (4) HTN (hypertension) Qualifiers: Hypertension type: essential hypertension Qualified Code(s): I10 - Essential (primary) hypertension (5) Diabetes Qualifiers: Diabetes mellitus type: type 2 Diabetes mellitus fdc insulin use: with fdc use Diabetes mellitus complication status: without complication Qualified Code(s): E11.9 - Type 2 diabetes mellitus without complications; Z79.4 - ocean transportation intermediary (current) use of insulin (6) Tick bite Qualifiers: Encounter type: subsequent encounter Qualified Code(s): W57.XXXD - Bitten or stung by nonvenomous insect and other nonvenomous arthropods, subsequent encounter
[2019-05-13] MEDS: Insulin LISPRO 300 UNITS/3 ML VIAL SQ SCH ×3 (08:24→17:21)
[2019-05-13] MEDS: Artificial Tears SOLN 15 ML BOTTLE BOTH EYES SCH (08:24)
[2019-05-13] MEDS: Doxycycline 100 MG CAPSULE PO SCH (08:27)
[2019-05-13] MEDS: Gabapentin 300 MG CAPSULE PO SCH (08:27)
[2019-05-13] MEDS: Topiramate 25 MG TABLET PO SCH (08:27)
[2019-05-13] MEDS: Aspirin Enteric Coated 81 MG Tablet PO SCH (08:27)
[2019-05-13] MEDS: Metoprolol 100 MG TABLET PO SCH (08:27)
[2019-05-13] MEDS: (Diclofenac Sodium 1 APPL) TP SCH (08:28)
[2019-05-13] MEDS: Fluticasone Propionate Nasal 50 MCG/SPRAY BOTTLE NS SCH (08:28)
--- NOTE | 2019-05-13 09:49 | Neurology Progress Note ---
<Gregorio Harris - Last Filed: 05/13/19 09:44> Date of Encounter: 05/13/19 Time of Encounter: 09:45 Assessment and Plan (1) Headache Current Visit: No Status: Acute Neurology seeing in follow-up for headaches of left occipital lobe. 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 The neurological exam remains nonfocal. This morning she is reporting that the headache is only improved minimally since beginning Zanaflex, Benadryl and Solu- Medrol. Etiology at this time was thought to be occipital neuralgia but also expect that her hypertensive episodes or further exacerbating the cephalgia. Continue with the treatment as stated above and continue with gabapentin 300 mg twice a day. If headaches do not improve she may need neurology follow-up in benefit from an occipital nerve block in the outpatient setting. Neurology will sign off at this time. Please call should any further needs arise. Qualifiers: Headache type: unspecified Headache chronicity pattern: acute headache Intractability: not intractable Qualified Code(s): R51 - Headache Subjective Principal diagnosis: Headache Interval history: In brief, this is a 63-year-old female who was seen in consultation for unremitting headache. She has a prior history of migraines but her current headache is not typical of her migraine presentation. Currently her headache is located in the left occipital lobe and is exacerbated by hypertensive episodes. Consider occipital neuralgia as cause of headache. The patient's chart was reviewed, she was seen and examined at the bedside today. She reports that the headache has improved but only minimally since beginning Solu-Medrol, Zanaflex and Benadryl. She states that she is considering whether or not she would wish to proceed with an occipital nerve block in the outpatient setting if her headache does not resolve. Otherwise, she denies any additional neurological complaints. Objective - Constitutional Vitals: Temp Pulse Resp BP Pulse Ox 98.1 F 89 14 173/98 93 05/13/19 08:00 05/13/19 08:00 05/13/19 08:00 05/13/19 08:00 05/13/19 08:00 Exam: Examination: General Examination: *CONSTITUTIONAL: Alert and oriented x3, no acute distress *GENERAL APPEARANCE OF PATIENT appears healthy and well groomed *EYES: pupils equal, round, reactive to light and accommodation, conjunctiva clear without masses or ulcerations, fundi normal. *CARDIOVASCULAR no peripheral edema, distal temperature normal, dorsalis pedis pulses normal. See vitals Musculoskeletal: Mild tenderness to palpation in the left occipital lobe *GAIT AND STATION declined *ASSESSMENT OF MUSCLE STRENGTH IN THE UPPER AND LOWER EXTREMITIES bilateral deltoid, bicep, tricep, canned food reconditioning inspector strength, hip flexors ,anterior tibialis, dorsoflexion of the foot 5/5 *MUSCLE TONE IN THE UPPER AND LOWER EXTREMITIES normal. No abnormal movements, fasciculations or atrophy identified. Neurological: *ORIENTATION to person, situation, time and place *RECURRENT AND REMOTE MEMORY intact *ATTENTION AND CONCENTRATION are normal *LANGUAGE FUNCTION no significant aphasia or dysarthia was noted. *FUND OF KNOWLEDGE aware of current events, past history, vocabulary *MENTAL attention span and concentration normal. *CN II optic fundi were normal, no papilledema noted. *CN III,IV, PERRLA extraocular eye movements were full, no nystagmus and no ptosis noted. *CN V shows normal sensation and jaw opens symmetrically. *CN VII shows normal facial movement symmetrically, upper and lower bilaterally. *CN VIII shows no significant hearing loss on exam *CN IX,,X palate elevated symmetrically *CN XI normal strength in the sternocleidomastoid muscles, symmetrical shoulder shrugging. *CN XII tongue protruded in the midline, with normal strength and movement. *SENSORY EXAMINATION light touch intact *REFLEXES: deep tendon reflexes were normal and symmetrical , grade 2/4 diffusely, no pathological reflexes were noted. *CEREBELLAR TESTING normal finger to nose, heel/knee/churchill *PAIN LEVEL 0/10 Results - Laboratory Findings CBC and BMP: 05/13/19 02:54 05/13/19 05:50 Abnormal lab findings: Abnormal lab results RBC 3.41 M/mcL (3.82-4.97) L 05/13/19 02:54 Hgb 10.0 g/dL (11.5-15.4) L 05/13/19 02:54 Hct 30.6 % (35.3-44.9) L 05/13/19 02:54 Plt Count 429 K/mcL (140-400) H 05/13/19 02:54 MPV 8.0 fL (9.4-12.4) L 05/13/19 02:54 Sodium 131 mEq/L (136-145) L 05/13/19 05:50 Chloride 96 mEq/L (98-107) L 05/08/19 04:05 Carbon Dioxide 18 mEq/L (23-29) L 05/13/19 05:50 BUN 39 mg/dL (8-23) H 05/13/19 05:50 Est GFR (Non-Af Amer) 56 (> 60) L 05/13/19 05:50 39 (6-26) H 05/13/19 05:50 Glucose 235 mg/dL (70-105) H 05/13/19 05:50 POC Glucose 239 mg/dL (70-99) H 05/12/19 20:43 278 (280-300) L 05/11/19 02:28 Calcium 8.1 mg/dL (8.6-10.3) L 05/08/19 04:05 0.1 mg/dL (0.3-1.0) L 05/07/19 20:05 AST 11 Units/L (13-39) L 05/07/19 20:05 5.5 g/dL (6.4-8.9) L 05/07/19 20:05 3.2 g/dL (3.5-5.7) L 05/07/19 20:05 2.3 g/dL (2.4-3.5) L 05/07/19 20:05 >=300 mg/dL (Neg-Trace) H 05/07/19 20:55 100 mg/dL (Normal) H 05/07/19 20:55 Trace (Negative) H 05/07/19 20:55 Ur Leukocyte Esterase Small (Negative) H 05/07/19 20:55 5-15 per hpf (0-3) H 05/07/19 20:55 5-15 per hpf (0-3) H 05/07/19 20:55 Ur Squamous Epith Cells Many per lpf (None-Few) H 05/07/19 20:55 Consult Discharge Plan - Plan Instructions: Chronic Hypertension (DC) Referrals: Adalid Scott DO [Primary Care Provider] - Prescriptions: DiphenhydraMINE [Benadryl] 25 mg PO Q12HR 30 Days #60 capsule PredniSONE [Deltasone] 60 mg PO DAILY 5 Days #15 tablet Gabapentin 300 mg PO BID 30 Days #60 tablet Metoprolol Tartrate 100 mg PO BID #60 tablet Tizanidine HCl 4 mg PO HS 30 Days #60 tablet Topiramate [Topamax] 25 mg PO BID 30 Days #60 tablet Lisinopril [Zestril] 40 mg PO HS #60 tablet Ondansetron ODT [Zofran ODT] 4 mg SL Q8HR PRN 3 Days #9 tab.rapdis PRN Reason: Nausea <Sean Combs I - Last Filed: 05/13/19 15:25> Date of Encounter: 05/13/19 Assessment and Plan (1) Headache Current Visit: No Status: Acute I have personally performed a face to face diagnostic evaluation, including HPI, EXAM, which is included in the Assesment and plan, which was discussed with Gregorio Harris CNP, I agree with the above outlined documentation. Sean Combs MD. NeurologyI Qualifiers: Headache type: unspecified Headache chronicity pattern: acute headache I ntractability: not intractable Qualified Code(s): R51 - Headache Objective - Constitutional Vitals: Temp Pulse Resp BP Pulse Ox 98.1 F 82 14 169/83 94 05/13/19 11:45 05/13/19 11:45 05/13/19 11:45 05/13/19 11:45 05/13/19 11:45 Results - Laboratory Findings CBC and BMP: 05/13/19 02:54 05/13/19 05:50 Abnormal lab findings: Abnormal lab results RBC 3.41 M/mcL (3.82-4.97) L 05/13/19 02:54 Hgb 10.0 g/dL (11.5-15.4) L 05/13/19 02:54 Hct 30.6 % (35.3-44.9) L 05/13/19 02:54 Plt Count 429 K/mcL (140-400) H 05/13/19 02:54 MPV 8.0 fL (9.4-12.4) L 05/13/19 02:54 Sodium 131 mEq/L (136-145) L 05/13/19 05:50 Chloride 96 mEq/L (98-107) L 05/08/19 04:05 Carbon Dioxide 18 mEq/L (23-29) L 05/13/19 05:50 BUN 39 mg/dL (8-23) H 05/13/19 05:50 Est GFR (Non-Af Amer) 56 (> 60) L 05/13/19 05:50 39 (6-26) H 05/13/19 05:50 Glucose 235 mg/dL (70-105) H 05/13/19 05:50 POC Glucose 239 mg/dL (70-99) H 05/12/19 20:43 278 (280-300) L 05/11/19 02:28 Calcium 8.1 mg/dL (8.6-10.3) L 05/08/19 04:05 0.1 mg/dL (0.3-1.0) L 05/07/19 20:05 AST 11 Units/L (13-39) L 05/07/19 20:05 5.5 g/dL (6.4-8.9) L 05/07/19 20:05 3.2 g/dL (3.5-5.7) L 05/07/19 20:05 2.3 g/dL (2.4-3.5) L 05/07/19 20:05 >=300 mg/dL (Neg-Trace) H 05/07/19 20:55 100 mg/dL (Normal) H 05/07/19 20:55 Trace (Negative) H 05/07/19 20:55 Ur Leukocyte Esterase Small (Negative) H 05/07/19 20:55 5-15 per hpf (0-3) H 05/07/19 20:55 5-15 per hpf (0-3) H 05/07/19 20:55 Ur Squamous Epith Cells Many per lpf (None-Few) H 05/07/19 20:55
[2019-05-13 11:46] VITALS: BP 169/83
[2019-05-13] MEDS ORDERED: tiZANidine 4 MG TABLET PO SCH (12:30)
--- NOTE | 2019-05-13 12:31 | Electrocardiograph Report ---
[facility] Test Date: 2019-05-12 Pat Name: Liam Mathis Department: 111 Room: [id number] Gender: Monotyper: : 1955 Requested By: ALLAN Bell Order Number: [id number] Reading MD: Wellington Portillo Measurements Intervals [place] Rate: 69 P: 35 LA: 187 QRS: 26 QRSD: 93 T: 50 QT: 394 QTc: 412 Interpretive Statements SINUS RHYTHM NONSPECIFIC T-WAVE ABNORMALITY Electronically Signed On 05-13-2019 12:29:37 EDT by Wellington Portillo
[2019-05-13] MEDS ORDERED: Insulin LISPRO 300 UNITS/3 ML VIAL SQ SCH (13:08)
[2019-05-15 13:38] LABS: Urine Collection Volume 2516 mL
[2019-05-16 13:43] LABS: Urine Collection Volume 2516 mL; Urine Creatinine mg/d 755 mg/d (500-1400)
[2019-05-17 10:18] LABS: Urine Creatinine mg/d 755 mg/d (500-1400)
== END 2019-05-13 17:48 | DRG 426 ==
LOC: ICNU → SUATTDRO 20:21 → 2NENU 05-08 06:35
PROVIDERS: ADMIT Internal Medicine Nephrology; ATTEND Internal Medicine